=== PATIENT | female | born 1975 | race Caucasian/White ===

== ENCOUNTER 2019-08-10 16:03 | Observation (INO) | payer BC, SELFPAY ==
[2019-08-10] VITALS (9 sets, daily range): BP systolic 114–127; BP diastolic 73–92; PULSE 80–84; RESP 18–19; TEMP 36.4–36.8; O2SAT 99–100; BMI 30.9
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
[2019-08-10] MEDS: fentaNYL 50 mcg/mL INJ 2mL IVP ×2 (16:35→16:55)
[2019-08-10 17:33] LABS: Basophils % 0.2 %; Eosinophils # 0.1 10^3/uL (0.0-0.8); Eosinophils % 0.6 %; Hematocrit 37.4 % (37.0-47.0); Hemoglobin 12.2 g/dL (11.5-15.3); Lymphocytes # 2.1 10^3/uL (0.8-4.8); Lymphocytes % 14.6 %; Mean Corpuscular HGB Conc 32.6 g/dL (30.0-36.0); Mean Corpuscular Volume 95.2 fL (81-99); Mean Platelet Volume 10.8 fL (7.4-10.4); Monocytes # 0.8 10^3/uL (0.2-0.9); Monocytes % 5.5 %; Neutrophils # 11.2 10^3/uL (1.8-7.7); Neutrophils % 78.9 %; Nucleated Red Blood Cells % 0 %; Platelet Count 317 10^3/cmm (130-400); Red Blood Count 3.93 10^6/uL (4.1-5.3); White Blood Count 14.2 10^3/uL (4.0-10.0)
[2019-08-10] MEDS: iohexol 300 mg/mL 100 mL Btl 95 ML IV (17:46)
[2019-08-10 17:48] LABS: INR 0.99 (0.8-1.2)
[2019-08-10 18:04] LABS: Anion Gap 17.7 (5-19); Blood Urea Nitrogen 14 mg/dL (6-20); Calcium 9.6 mg/dL (8.5-10.5); Carbon Dioxide 21 mmol/L (22-29); Chloride 106 mmol/L (98-107); Glomerular Filtration Rate 78.7 mL/min (90-130); Glucose 111 mg/dL (65-115); Osmolality Calculated 289 mOsm/kg (285-295); Potassium 3.7 mmol/L (3.5-5.1); Sodium 141 mmol/L (136-145)
[2019-08-10] MEDS: HYDROmorphone 1 mg/mL INJ 1 mL 0.5 MG IVP ×2 (18:04→22:26)
[2019-08-10] MEDS: ondansetron 2 mg/ML SDV 2 mL 4 MG IVP (18:11)
[2019-08-10] MEDS: diazePAM 5 mg Tablet PO (18:39)
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
[2019-08-10] MEDS: sodium chloride 0.9% 1,000 ML 75 ML IV (20:56)
[2019-08-10] MEDS: ketorolac 30 mg/mL INJ 15 MG IVP (20:58)
[2019-08-10] MEDS: cyclobenzaprine 10 mg Tablet PO (22:23)
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
[2019-08-11] VITALS (13 sets, daily range): BP systolic 83–110; BP diastolic 50–68; PULSE 62–84; RESP 16–20; TEMP 36.7–37.3; O2SAT 98–100
[2019-08-11] MEDS: HYDROmorphone 1 mg/mL INJ 1 mL 0.5 MG IVP ×2 (02:23→14:28)
[2019-08-11] MEDS: oxyCODONE-APAP 10-325 mg Tablet 1 TAB PO ×3 (05:52→23:51)
--- NOTE | 2019-08-11 06:02 | PC.NURSE ---
SUMMARY/URINATION Has not slept much but has rested quietly. Medicated as needed with prn pain meds. Had not urinated since admission and had told us she had not gone since yesterday morning sometime. Had been putting off trying to go due to having to move around and pain. Wasn't sure she could sit on BSC due to swelling and pain in right hip/thigh and buttock. Wanted to try to stand and try to urinate in bucket but was unable to go and became dizzy and had to lay back down. Bladder scan done and showed 536ml urine. Really not wanting a catheter if at all possible. Tried bedpan without result then decided to try to get to BSC and was able to sit on it with void of 700ml dark urine. Right thigh, buttock and hip remain quite swollen but is soft. Scattered bruising and area remains very tender to touch or movement. No neurovascular changes. Ice pack in place
[2019-08-11 08:38] LABS: Anion Gap 17.8 (5-19); Blood Urea Nitrogen 15 mg/dL (6-20); Carbon Dioxide 21 mmol/L (22-29); Chloride 104 mmol/L (98-107); Creatine Phosphokinase 59 U/L (26-192); Glomerular Filtration Rate 78.7 mL/min (90-130); Glucose 103 mg/dL (65-115); Osmolality Calculated 285 mOsm/kg (285-295); Potassium 3.8 mmol/L (3.5-5.1); Sodium 139 mmol/L (136-145)
[2019-08-11 08:40] LABS: Basophils % 0.5 %; Eosinophils # 0.1 10^3/uL (0.0-0.8); Eosinophils % 1.4 %; Hematocrit 30.5 % (37.0-47.0); Hemoglobin 9.7 g/dL (11.5-15.3); Lymphocytes % 32.4 %; Mean Corpuscular HGB Conc 31.8 g/dL (30.0-36.0); Mean Corpuscular Hemoglobin 31.2 pg (28.0-34.0); Mean Corpuscular Volume 98.1 fL (81-99); Mean Platelet Volume 10.3 fL (7.4-10.4); Monocytes # 0.6 10^3/uL (0.2-0.9); Monocytes % 8.9 %; Neutrophils # 3.5 10^3/uL (1.8-7.7); Neutrophils % 56.6 %; Nucleated Red Blood Cells % 0 %; Platelet Count 256 10^3/cmm (130-400); Red Blood Count 3.11 10^6/uL (4.1-5.3); Red Cell Distribution Width 12.2 % (12.1-15.1); White Blood Count 6.3 10^3/uL (4.0-10.0)
[2019-08-11] MEDS: cyclobenzaprine 10 mg Tablet PO ×2 (08:48→18:13)
[2019-08-11 09:00] LABS: CKMB 1.4 ng/mL (0-5.34)
[2019-08-11] MEDS: sodium chloride 0.9% 1,000 ML 75 ML IV (09:45)
--- NOTE | 2019-08-11 12:18 | PC.CHAP ---
Pastoral Care Encounter/Spiritual Assessment Type of Contact [] Declined optical engineering manager visit [] Patient/Family/Request visit [] Outpatient visit [] Follow-up visit [] Physician referral [] Code/Alert [x] Routine visit [] Staff referral [] Actively dying [] Patient sleeping [] Family support [] [] Out of room [] Palliative care [] [] Receiving care in room [] Pre-surgical visit [] Trauma [] Long length of stay [] ICU visit [] Other: Relational/Emotional Strength [x] Patient feels connected with others/family/visitors/staff [] Distress [] Loneliness/isolation [] Abandonment Spirituality of Patient [x] Person of Kanwal [x] Attends Druze of their Kanwal [x] Believes in Prayer [x] Reads Bible or Advent materials [] There are Spiritual issues to be addressed Animal Warden Interventions [x] Prayer [x] Active listening [x] Non-anxious presence [x] Spiritual/emotional support [] Crisis/trauma care [x] Spiritual counseling [] Bereavement support [] Provided bereavement packet [] Provided Bible/devotional materials [] Provided toy/stuffed animal, coloring book to patient or family member [] Provided Communion [] Anointing/[place] [] Salvation [] Completed spiritual assessment [] Other: Impact on Illness or Injury [] Angry [] Fearful [] Anxious [] Often cries [] Exhaustion [] Unable to work [] Unable to attend buddhist [] Unable to walk/stand [] Unable to read [] Unable to drive [] Unable to eat/drink [] Unable to sleep [] Unable to be with family [] Patient intubated [x] Other: Summary Patient was attend by her father, Sudeep in the room with her. Time spent with patient 5 minutes
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
[2019-08-11] MEDS: sodium chloride 0.9% 1,000 ML 150 ML IV (19:29)
[2019-08-12] VITALS (8 sets, daily range): BP systolic 91–126; BP diastolic 57–80; PULSE 73–91; RESP 14–18; TEMP 36.5–36.9; O2SAT 98–100
[2019-08-12] MEDS: sodium chloride 0.9% 1,000 ML 150 ML IV (02:10)
[2019-08-12 06:00] LABS: Basophils % 0.4 %; Eosinophils # 0.1 10^3/uL (0.0-0.8); Eosinophils % 2.1 %; Hematocrit 25.6 % (37.0-47.0); Hemoglobin 8.1 g/dL (11.5-15.3); Lymphocytes # 2.8 10^3/uL (0.8-4.8); Lymphocytes % 52.7 %; Mean Corpuscular HGB Conc 31.6 g/dL (30.0-36.0); Mean Corpuscular Hemoglobin 31.2 pg (28.0-34.0); Mean Corpuscular Volume 98.5 fL (81-99); Mean Platelet Volume 10.6 fL (7.4-10.4); Monocytes # 0.5 10^3/uL (0.2-0.9); Monocytes % 8.9 %; Neutrophils # 1.9 10^3/uL (1.8-7.7); Neutrophils % 35.9 %; Nucleated Red Blood Cells % 0 %; Platelet Count 197 10^3/cmm (130-400); White Blood Count 5.3 10^3/uL (4.0-10.0)
[2019-08-12 06:28] LABS: Anion Gap 11.7 (5-19); Blood Urea Nitrogen 10 mg/dL (6-20); Calcium 8.3 mg/dL (8.5-10.5); Carbon Dioxide 23 mmol/L (22-29); Chloride 108 mmol/L (98-107); Glomerular Filtration Rate 78.7 mL/min (90-130); Glucose 104 mg/dL (65-115); Osmolality Calculated 284 mOsm/kg (285-295); Potassium 3.7 mmol/L (3.5-5.1); Sodium 139 mmol/L (136-145)
[2019-08-12] MEDS: ondansetron 2 mg/ML SDV 2 mL 4 MG IVP ×2 (09:56→17:03)
[2019-08-12] MEDS: oxyCODONE-APAP 10-325 mg Tablet 1 TAB PO ×2 (09:56→17:04)
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
[2019-08-12] MEDS: ketorolac 30 mg/mL INJ 15 MG IVP (17:04)
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
[2019-08-12] MEDS: sennosides-docusate Tablet 1 TAB PO (18:43)
[2019-08-13] VITALS: BP 109/74; PULSE 83; RESP 18; TEMP 37.1; O2SAT 97
[2019-08-13 04:00] VITALS: BP 112/78; PULSE 84; RESP 18; TEMP 36.9; O2SAT 98
[2019-08-13] MEDS: acetaminophen 325 mg Tablet 650 MG PO (05:44)
[2019-08-13 06:10] LABS: Hematocrit 24.9 % (37.0-47.0)
[2019-08-13 07:50] VITALS: BP 104/59; PULSE 74; RESP 20; TEMP 36.6; O2SAT 98
[2019-08-13] MEDS: sennosides-docusate Tablet 1 TAB PO (08:57)
[2019-08-13 11:09] VITALS: RESP 14
[2019-08-13] MEDS: ondansetron 2 mg/ML SDV 2 mL 4 MG IVP (11:09)
[2019-08-13] MEDS: oxyCODONE-APAP 10-325 mg Tablet 1 TAB PO (11:09)
[2019-08-13 11:31] VITALS: BP 124/83; PULSE 95; RESP 22; TEMP 36.6; O2SAT 100
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
[2019-08-13 12:23] VITALS: BP 124/83; PULSE 95; RESP 22; TEMP 36.6; O2SAT 100
== END 2019-08-13 13:02 | disposition home or self-care (01) ==
LOC: ER 18:53 → MEDSURG 19:49
PROVIDERS: Admitting Provider Surgery; Emergency Provider Emergency Medicine; Family Provider Family Medicine; PCP Family Medicine; Visit Provider Surgery
DX: S70.01XA Contusion of right hip, initial encounter (principal); M79.602 Pain in left arm; M79.601 Pain in right arm; M79.605 Pain in left leg; M79.604 Pain in right leg; M25.552 Pain in left hip; M25.551 Pain in right hip; M79.10 Myalgia, unspecified site; W23.0XXA Caught, crushed, jammed, or pinched between moving objects, initial encounter
CPT/HCPCS: 12345; 36415; 71045; 73060; 73090; 73110; 73552; 73590; 73610; 73630; 73718; 74177; 80048; 82550; 82553; 85014; 85018; 85025; 85610; 96360; 96361; 96374; 96375; 97140; 97161; 97530; 99282; 99285; G0378; J1170; J1885; J2405; J3010; J7030; Q9967

== ENCOUNTER → 2019-10-03 11:35 | Outpatient (BNVA) | payer BC, SELFPAY | PROVIDERS: Family Provider Family Medicine; PCP Family Medicine; Referring Provider Nurse Practitioner Family; Visit Provider Nurse Practitioner Family | DX: R50.9 Fever, unspecified (principal) | CPT/HCPCS: 87400 ==

== ENCOUNTER 2021-01-31 09:05 | Outpatient (CLI) | payer BC, SELFPAY ==
--- NOTE | 2021-01-31 09:12 | MM_ITS ---
WS: [id number] Exam: [place] [id number] Date/Time of Exam: 01/31/2021 9:12 AM Reason For Exam: SCREENING VIEWS: MLO and CC views both breasts. Comparison made with prior exam of 09/22/2018. Findings: Stable appearing scattered fibroglandular densities in both breasts. No suspicious calcifications. S cattered fibroglandular densities MM/[place] [id number] Impression: BI-RADS: 2-Benign FOLLOW-UP: 1 Year Follow-up This mammogram was also analyzed by the Computer Aided Detection System R2 Imag e Singeing Torch Operator.
== END 2021-01-31 09:06 | disposition home or self-care (01) ==
LOC: RADSHAW 09:11
PROVIDERS: PCP Family Medicine; Visit Provider Family Medicine
DX: Z12.31 Encounter for screening mammogram for malignant neoplasm of breast (principal)
CPT/HCPCS: 77067

== ENCOUNTER 2021-08-20 10:36 | Outpatient (CLI) | payer SELFPAY ==
[2021-08-20 10:59] LABS: HF Add Manual Diff No
[2021-08-20 11:01] LABS: Basophils # 0.1 10^3/uL (0.0-0.1); Eosinophils # 0.2 10^3/uL (0.0-0.8); Eosinophils % 3.2 %; Hematocrit 37.5 % (37.0-47.0); Hemoglobin 12.4 g/dL (11.5-15.3); Lymphocytes # 1.9 10^3/uL (0.8-4.8); Lymphocytes % 32.6 %; Mean Corpuscular HGB Conc 33.1 g/dL (30.0-36.0); Mean Corpuscular Hemoglobin 32.3 pg (28.0-34.0); Mean Corpuscular Volume 97.7 fl (81-99); Mean Platelet Volume 10.2 fL (7.4-10.4); Monocytes # 0.6 10^3/uL (0.2-0.9); Monocytes % 9.4 %; Neutrophils % 53.6 %; Nucleated Red Blood Cells % 0 %; Platelet Count 320 10^3/cmm (130-400); Red Blood Count 3.84 10^6/uL (4.1-5.3); Red Cell Distribution Width 12.9 % (12.1-15.1)
[2021-08-20 11:33] LABS: Estmated Average Glucose 103; Hemoglobin A1C 5.2 % (4.0-6.0)
[2021-08-20 11:47] LABS: 25 Hydroxy Vitamin D 33 ng/mL (30-100); Alanine Aminotransferase 12 U/L (0-33); Albumin Level 4.2 g/dL (3.5-5.2); Alkaline Phosphatase 53 IU/L (35-105); Anion Gap 15.4 (5-19); Aspartate Amino Transferase 16 U/L (0-32); Blood Urea Nitrogen 20 mg/dL (6-20); Calcium 9.7 mg/dL (8.5-10.5); Carbon Dioxide 22 mmol/L (22-29); Chloride 105 mmol/L (98-107); Chol HDL Ratio 2.44 mg/dL (0.0-4.40); Cholesterol 254 mg/dL (0-200); Globulin 3.4 g/dL (1.3-4.6); Glomerular Filtration Rate 90.9 mL/min (90-130); Glucose 98 mg/dL (65-115); HDL Cholesterol 104 mg/dL (60-100); LDL Cholesterol Calculated 139 mg/dL (50-129); LDL HDL Ratio 1.34 RATIO (0.00-3.22); Osmolality Calculated 289 mOsm/kg (285-295); Potassium 4.4 mmol/L (3.5-5.1); Sodium 138 mmol/L (136-145); Thyroid Stimulating Hormone 1.35 uIU/mL (0.27-4.20); Total Bilirubin 0.3 mg/dL (0.15-1.2); Total Protein 7.6 g/dL (6.6-8.7); Triglycerides 56 mg/dL (0-150)
== END 2021-08-20 10:37 | disposition home or self-care (01) ==
LOC: LAB 10:37
PROVIDERS: PCP Family Medicine; Visit Provider Dermatology
DX: Z01.89 Encounter for other specified special examinations (principal)
CPT/HCPCS: 36415

== ENCOUNTER 2022-02-11 09:38 | Outpatient (CLI) | payer BC, SELFPAY ==
--- NOTE | 2022-02-11 09:46 | MM_ITS ---
WS: [id number] SCREENING DIGITAL BREAST TOMOSYNTHESIS MAMMOGRAM WITH CAD HISTORY: SCREENING COMPARISON: 01/31/2021 09/22/2018 Bilateral CC and MLO with tomosynthesis and synthetic mammography submitted. Computer aided detection analyzed. Breast composition: There are scattered areas of fibroglandular density. Spiculated asymmetry noted o n the RIGHT MLO projection above the nipple line. This asymmetry was noted on prior studies but appea rs slightly more prominent and spiculated today. Asymmetry measures approximately 5 mm. May correspon d to a linear area of increased density in the lateral breast on the CC projection. MM/[place] [id number] IMPRESSION: BI-RADS: 0-Incomplete: Need additional imaging evaluation FOLLOW UP: Need Additional Imaging RIGHT breast: Spot compression views (CC and MLO). True ML. Ultrasound to follo w if abnormality persists.
== END 2022-02-11 09:39 | disposition home or self-care (01) ==
LOC: RAD 09:39
PROVIDERS: PCP Family Medicine; Visit Provider Family Medicine
DX: Z12.31 Encounter for screening mammogram for malignant neoplasm of breast (principal)
CPT/HCPCS: 77063; 77067

== ENCOUNTER 2022-05-19 08:33 | Outpatient (CLI) | payer BC, SELFPAY ==
--- NOTE | 2022-05-19 08:37 | MM_ITS ---
WS: [id number] ADDITIONAL VIEWS RIGHT MAMMOGRAM WITH DIGITAL BREAST TOMOSYNTHESIS. RIGHT BREAST ULTRASOUND HISTORY: ABNORMAL MAMMO COMPARISON: 02/11/2022, 01/31/2021, 09/22/2018 RIGHT MAMMOGRAM: Spot compression views and true ML with digital breast tomosynthesis and SM. The asymmetry in the upper outer quadrant of the RIGHT breast resolves with spot compression views. There is very minimal soft tissue prominence remaining. RIGHT BREAST ULTRASOUND 2-D and color Doppler imaging submitted. No mass or distortion in the upper outer quadrant of the RIGHT breast. MM/[place] [id number] IMPRESSION: BI-RADS: 2-Benign FOLLOW UP: 1 Year Follow-up
== END 2022-05-19 08:34 | disposition home or self-care (01) ==
LOC: RAD 08:33
PROVIDERS: PCP Family Medicine; Visit Provider Family Medicine
DX: R92.8 Other abnormal and inconclusive findings on diagnostic imaging of breast (principal)
CPT/HCPCS: 76642; 77061; G0279

== ENCOUNTER → 2022-12-22 11:23 | Outpatient (BNVA) | payer BC, SELFPAY | PROVIDERS: PCP Family Medicine; Visit Provider Emergency Medicine | DX: M79.671 Pain in right foot (principal) | CPT/HCPCS: 73630 ==

== ENCOUNTER 2023-07-08 08:30 | Outpatient (CLI) | payer BC, SELFPAY ==
--- NOTE | 2023-07-08 08:32 | MM_ITS ---
WS: [id number] BILATERAL SCREENING DIGITAL TOMOSYNTHESIS MAMMOGRAM WITH CAD HISTORY: SCREENING COMPARISON: 05/19/2022, 02/11/2022, 01/31/2021 Bilateral CC and MLO views with tomosynthesis and synthetic mammography submitted. Computer aided det ection analyzed. Breast composition: There are scattered areas of fibroglandular density. No suspicious masses, microc alcifications or architectural distortion. The irregular asymmetry in the superior RIGHT breast seen best on the MLO projection persists. This has been present and evaluated on prior imaging studies. No corresponding finding on the CC projection. LEFT breast is negative. IMPRESSION: MM/[place] [id number] BI-RADS: 2-Benign FOLLOW UP: 1 Year Follow-up
== END 2023-07-08 08:31 | disposition home or self-care (01) ==
LOC: RAD 08:30
PROVIDERS: PCP Family Medicine; Visit Provider Family Medicine
DX: Z12.31 Encounter for screening mammogram for malignant neoplasm of breast (principal); R92.323 Mammographic fibroglandular density, bilateral breasts; N64.89 Other specified disorders of breast
CPT/HCPCS: 77063; 77067

== ENCOUNTER 2023-10-16 22:37 | Emergency (ER) | payer BC, SELFPAY ==
[2023-10-16 22:44] VITALS: BP 135/95; PULSE 98; RESP 25; TEMP 36; O2SAT 100; BMI 32.4
--- NOTE | 2023-10-16 22:44 | CTR_ITS ---
PROCEDURE INFORMATION: Exam: CT Head Without Contrast Exam date and time: 10/16/2023 10:38 PM Age: 48 years old Clinical indication: Stroke-like symptoms; Altered mental status/memory loss; Additional info: Stroke alert TECHNIQUE: Imaging protocol: Computed tomography of the head without contrast. Radiation optimization: All CT scans at this facility use at least one of these dose optimization techniques: automated exposure control; mA and/or kV adjustment per patient size (includes targeted exams where dose is matched to clinical indication); or iterative reconstruction. Other technique: STROKE PROTOCOL was implemented. COMPARISON: No relevant prior studies available. RADIATION DOSE METRICS: Total DLP (mGy-cm): 1165.7 FINDINGS: Brain: No acute infarct. No hemorrhage. Unremarkable white matter for age. No midline shift. Cerebral ventricles: No ventriculomegaly. Paranasal sinuses: No significant inflammation. No fluid levels. Mastoid air cells: No significant inflammation. Bones: Unremarkable. No acute fracture. Soft tissues: Unremarkable. CT/CT head wo con* [id number] IMPRESSION: No acute intracranial abnormality. ASSESSMENT: ASPECTS ([place] Stroke Program Early CT Score) is 10.
--- NOTE | 2023-10-16 22:45 | XRR_ITS ---
PROCEDURE INFORMATION: Exam: XR Chest Exam date and time: 10/16/2023 10:54 PM Age: 48 years old Clinical indication: Other: Stroke alert; Patient HX: EMS arrival for possible stroke. ; Additional info: AMS TECHNIQUE: Imaging protocol: Radiologic exam of the chest. Views: 1 view. COMPARISON: CR XR chest 1V portable [id number] 08/10/2019 4:38 PM FINDINGS: Lungs: The lungs are hypoinflated with mild vascular crowding. No focal infiltrate is seen. Pleural spaces: No pleural effusion. No pneumothorax. Heart/Mediastinum: Stable heart size. Bones/joints: Stable bones. Probable bone island right proximal humerus. XR/XR chest 1V portable [id number] IMPRESSION: No acute findings.
[2023-10-16 23:03] LABS: Erythrocyte Sedimentation Rate 3 mm/hr (0-15)
[2023-10-16 23:04] LABS: Basophils # 0.1 10^3/uL (0.0-0.1); Basophils % 0.8 %; Eosinophils # 0.3 10^3/uL (0.0-0.8); Eosinophils % 2.7 %; Hematocrit 40.7 % (36-47); Lymphocytes # 3.4 10^3/uL (0.8-4.8); Lymphocytes % 36.5 %; Mean Corpuscular HGB Conc 32.9 g/dL (30-55); Mean Corpuscular Hemoglobin 31.6 pg (27-33); Mean Platelet Volume 9.9 fL (7.4-10.4); Monocytes # 0.8 10^3/uL (0.2-0.9); Monocytes % 8.7 %; Neutrophils # 4.69 10^3/uL (1.8-7.7); Neutrophils % 51.1 %; Nucleated Red Blood Cells % 0 %; Platelet Count 306 10^3/cmm (157-399); Red Blood Count 4.24 10^6/uL (3.85-5.65); White Blood Count 9.18 10^3/uL (3.29-11.43)
[2023-10-16 23:17] LABS: INR 0.96 (0.8-1.2)
--- NOTE | 2023-10-16 23:25 | ED_ITS ---
HPI - Altered Mental Status 2 General: Chief Complaint: Altered Mental Status Stated Complaint: AMS Time Seen by Provider: 10/16/23 22:45 History of Present Illness: Patient presents to the ER by EMS with a stroke alert being called. Patient's last known well was approximately 630 after that said she appeared under the influence even though she had been not been drinking she is was not quite right and mildly slurring her words. They went out to eat at 901 and she drank 2 margaritas by time they made it from [place] to [place] she was unable to get out of the car and unresponsive. He said that patient has drink 2 margaritas many times in the past and they do not have this effect on her at all. Patient does not use drugs. Has no history of seizures or strokes bleeds or blood clots. Upon arrival patient was taken straight to CT scan. Review of Systems 2 General: Reports: ROS unobtainable due to medical condition PFSH ED 2 PFSH: Medical History Family history of colon cancer Traumatic hematoma of right thigh Surgical History History of cholecystectomy History of appendectomy Family History Denies family history of Anesthesia complication Bleeding disorder Social History Smoking and tobacco/nicotine status: never used tobacco/nicotine Physical Exam 2 HENMT: OTHER: Upon arrival to the ER patient was noted to move all 4 extremities and her head. Patient would look around the good range of motion of her eyes. Patient would withdraw from painful stimuli. Patient would not follow commands or answer questions. Eye: COMMON NORMALS: Equal, round and reactive pupils present, EOMs intact bilaterally, conjunctivae normal and no scleral icterus CONJUNCTIVA: Yes conjunctivae normal PUPIL: Yes Equal, round and reactive pupils present Neck/C-Spine: COMMON NORMALS: full ROM, no lymphadenopathy, supple, no meningeal signs and no JVD Chest: COMMONS NORMALS: normal inspection of the chest and normal palpation of entire chest wall Resp: COMMON NORMALS: normal respiratory effort, No retractions, No use of accessory muscles and clear to auscultation bilaterally AUSCULTATION: clear to auscultation bilaterally Cardio: COMMON NORMALS: no JVD, regular rate, regular rhythm, S1 normal heart sound present, S2 normal heart sound present, No gallops present (Cardio), No clicks present (Cardio), No murmurs present (Cardio) and No rub (Cardio) R ATE: regular rate RHYTHM: regular rhythm HEART SOUNDS: S1 normal heart sound present and S2 normal heart sound present GI: COMMON NORMALS: Normal to inspection, nondistended, normoactive bowel sounds present, Soft to palpation, non-tender, No hepatosplenomegaly present and no masses PALPATION: Yes Soft to palpation and Yes No hepatosplenomegaly present Neuro: MENINGEAL SIGNS: Yes no meningeal signs Course 2 Vital Signs: Vital signs: Vital Signs Temperature 96.8 F L 10/16/23 22:44 Pulse Rate 92 10/17/23 01:01 Respiratory Rate 16 10/17/23 01:01 Blood Pressure 126/65 10/17/23 01:01 Pulse Oximetry 97 10/17/23 01:01 Oxygen Delivery Me thod Room Air 10/17/23 01:01 MDM - Altered Mental Status Medical Decision Making Discussed case with [facility] teleneuro he had due to the timeline last known well of 630 and her arriving here at approximately 1030 her out of the window for TNKase it does sound that she has a possible global aphasia he recommended getting a CTA head and neck and calling him back so he can do a evaluation. Teleneurology evaluated the patient that she may be more in status epilepticus and a seizure. She has started becoming more unresponsive and started twitching in the face and this is a decline since when she came in. They recommended we give her 2 mg Ativan and 2000 mg of Keppra and they will call the transfer center and we will work on a transfer to [place] they said patient really needs a EEG. Dr. Youngblood and Dr. Connelly accept the patient in transfer Differential Diagnosis Likely altered mental status Medical Records I reviewed the patient's medical records. Lab Data I reviewed the patient's lab results. 10/16/23 22:54 10/16/23 22:[address] 10/16/23 22:44 IMPRESSION: No acute intracranial abnormality. ASSESSMENT: ASPECTS ([place] Stroke Program Early CT Score) is 10. Chest X-Ray 10/16/23 22:45 IMPRESSION: No acute findings. Head/Neck CTA 10/16/23 23:27 IMPRESSION: No acute large vessel occlusion identified. IMPRESSION: No occlusion or significant stenosis. REFERENCES: NASCET CRITERIA. The degree of stenosis in the cervical segment of the internal carotid artery is based on NASCET criteria. Normal is no stenosis. Mild is less than 50% stenosis. Moderate is 50-69% stenosis. Severe is 70% to 99% stenosis. Total occlusion is no detectable patent lumen. Laboratory Results WBC 9.18 10^3/uL (3.29-11.43) 10/16/23 22:54 RBC 4.24 10^6/uL (3.85-5.65) 10/16/23 22:54 Hgb 13.40 g/dL (11.27-16.99) 10/16/23 22:54 Hct 40.7 % (36-47) 10/16/23 22:54 MCV 96.0 fl (85-98) 10/16/23 22:54 MCH 31.6 pg (27-33) 10/16/23 22:54 MCHC 32.9 g/dL (30-55) 10/16/23 22:54 RDW 12.0 % (12.1-15.1) L 10/16/23 22:54 Plt Count 306 10^3/cmm (157-399) 10/16/23 22:54 MPV 9.9 fL (7.4-10.4) 10/16/23 22:54 Neut % (Auto) 51.1 % 10/16/23 22:54 Lymph % (Auto) 36.5 % 10/16/23 22:54 [place] % (Auto) 8.7 % 10/16/23 22:54 Eos % (Auto) 2.7 % 10/16/23 22:54 Baso % (Auto) 0.8 % 10/16/23 22:54 Neut # (Auto) 4.69 10^3/uL (1.8-7.7) 10/16/23 22:54 Lymph # (Auto) 3.4 10^3/uL (0.8-4.8) 10/16/23 22:54 [place] # (Auto) 0.8 10^3/uL (0.2-0.9) 10/16/23 22:54 Eos # (Auto) 0.3 10^3/uL (0.0-0.8) 10/16/23 22:54 Baso # (Auto) 0.1 10^3/uL (0.0-0.1) 10/16/23 22:54 Nucleated RBC % (auto) 0 % 10/16/23 22:54 Nucleated RBCs # 0.0 /100WBC 10/16/23 22:54 ESR 3 mm/hr (0-15) 10/16/23 22:54 PT 13.10 SECONDS (12.1-14.9) 10/16/23 22:54 INR 0.96 (0.8-1.2) 10/16/23 22:54 Specimen Type Arterial 10/16/23 23:25 Sample Site Radial, right 10/16/23 23:25 ABG pH 7.35 (7.35-7.45) 10/16/23 23: ABG pCO2 39.9 mmHg (35-45) 10/16/23 23: ABG pO2 97.4 mmHg (80.0-100.0) 10/16/23 23: ABG PO2/FiO2 Ratio 0 10/16/23 23: ABG HCO3 21.9 mmol/L (22-26) L 10/16/23 23: ABG O2 Saturation 97.9 10/16/23 23:25 ABG Base Excess -3.4 mmol/L (-2.0-2.0) L 10/16/23 23:25 Lalit Test Pos 10/16/23 23:25 A-a O2 Gradient 0.2 mmHg (5-10) L 10/16/23 23:25 Hematocrit 41.0 % (37-47) 10/16/23 23:25 Hgb O2 Saturation 96.1 % (95-100) 10/16/23 23: Carboxyhemoglobin 1.0 %THgb (0.4-20.1) 10/16/23 23:25 Methemoglobin 0.8 % (0.4-1.5) 10/16/23 23:25 Total Hemoglobin 13.4 g/dL (12-16) 10/16/23 23:25 Sodium 146.0 mmol/L (131-143) H 10/16/23 23:25 Potassium 3.7 mmol/L (3.5-5.0) 10/16/23 23:25 Glucose 123.0 mg/dL (70-115) H 10/16/23 23:25 Ionized Calcium 1.3 mmol/L (1.1-1.4) 10/16/23 23:25 O2 Delivery Device Room air 10/16/23 23:25 FiO2 21.0 % 10/16/23 23:25 Development Trainer ID Ed 10/16/23 23:25 Sodium 140 mmol/L (136-145) 10/16/23 22:54 Potassium 3.3 mmol/L (3.5-5.1) L 10/16/23 22:54 Chloride 104 mmol/L (98-107) 10/16/23 22:54 Carbon Dioxide 23 mmol/L (22-29) 10/16/23 22:54 Anion Gap 16.3 (5-19) 10/16/23 22:54 BUN 21 mg/dL (6-20) H 10/16/23 22:54 Creatinine 0.8 mg/dL (0.5-0.9) 10/16/23 22:54 GFR Calculation 77.2 mL/min (90-130) L 10/16/23 22:54 Glucose 113 mg/dL (65-115) 10/16/23 22:54 Calculated Osmolality 294 mOsm/kg (285-295) 10/16/23 22:54 Lactic Acid 1.9 mmol/L (0.5-2.2) 10/16/23 22:54 Calcium 10.2 mg/dL (8.5-10.5) 10/16/23 22:54 Magnesium 2.2 mg/dL (1.7-2.3) 10/16/23 22:54 Total Bilirubin 0.2 mg/dL (0.15-1.2) 10/16/23 22:54 AST 19 U/L (0-32) 10/16/23 22:54 ALT 16 U/L (0-33) 10/16/23 22:54 Alkaline Phosphatase 71 U/L (35-105) 10/16/23 22:54 Creatine Kinase 55 U/L (26-192) 10/16/23 22:54 Troponin T Baseline 11 ng/L (0-10) H 10/16/23 22:54 Troponin T 120 Minute 8.96 ng/L (0-10) 10/17/23 00:29 Delta Troponin T -2.04 ABS# (0-10) L 10/17/23 00:29 C-Reactive Protein 3.0 mg/L (0.0-4.9) 10/16/23 22:54 Total Protein 7.7 g/dL (6.6-8.7) 10/16/23 22:54 Albumin 4.7 g/dL (3.5-5.2) 10/16/23 22:54 Globulin 3.0 g/dL (1.3-4.6) 10/16/23 22:54 Procalcitonin 0.05 ng/mL (0-0.5) 10/16/23 22:54 TSH 3.90 uIU/mL (0.27-4.20) 10/16/23 22:54 Urine Color Yellow (Yellow) 10/16/23 23:03 Urine Appearance Hazy (CLEAR) A 10/16/23 23:03 Urine pH 7 (5-7) 10/16/23 23:03 Ur Specific [place] 1.000 (1.005-1.030) L 10/16/23 23:03 Urine Protein 1+ (Negative) H 10/16/23 23:03 Urine Glucose (UA) Norm (Normal) 10/16/23 23:03 Urine Ketones Negative (Negative) 10/16/23 23:03 Urine Blood Neg (Negative) 10/16/23 23:03 Urine Nitrate Negative (Negative) 10/16/23 23:03 Urine Bilirubin Neg (Negative) 10/16/23 23:03 Urine Urobilinogen Neg mg/dL (Negative) 10/16/23 23:03 Ur Leukocyte Esterase 2+ (Negative) H 10/16/23 23:03 Urine RBC 0-4 /hpf (0-2) H 10/16/23 23:03 Urine WBC 25-40 /hpf (0-5) H 10/16/23 23:03 Ur Squamous Epith Cells 0-4 /hpf (0-5) H 10/16/23 23:03 Amorphous Sediment 1+ /hpf 10/16/23 23:03 Urine Bacteria 2+ /hpf (NONE) H 10/16/23 23:03 Urine Mucus Trace /hpf 10/16/23 23:03 Salicylates < 0.3 mg/dL (3-10) L 10/16/23 22:54 Urine Opiates Screen Negative ng/mL (Negative) 10/16/23 23:03 Acetaminophen < 5.0 ug/mL (10-30) L 10/16/23 22:54 Ur Barbiturates Screen Negative ng/mL (Negative) 10/16/23 23:03 Ur Phencyclidine Scrn Negative ng/mL (Negative) 10/16/23 23:03 Ur Amphetamines Screen Negative ng/mL (Negative) 10/16/23 23:03 U Benzodiazepines Scrn Negative ng/mL (Negative) 10/16/23 23:03 Urine Cocaine Screen Negative ng/mL (Negative) 10/16/23 23:03 U Marijuana (THC) Screen Negative ng/mL (Negative) 10/16/23 23:03 Ethyl Alcohol 164 mg/dL (0-10) H 10/16/23 22:54 All radiology interpretation(s) finalized by discharge Critical Care Time 2 Critical Care Time: Critical Care Time: Yes Total Critical Care Time: 60 Attestation: The patient was emergently evaluated this patient's presentation and case had a high probability of a clinically significant, sudden, or life-threatening deterioration of the patient's initial critical presentation or condition which required my full and direct attention, intervention and personal management. Discharge Plan Discharge Patient Disposition: Xfer Short-Term Hosp Clinical Impression: Status epilepticus, Acute alteration in mental status, Urinary tract infection Condition: Stable Prescriptions: No Action pantoprazole [Protonix] 40 mg tablet,delayed release (DR/EC) 40 mg PO BID 42 Days Qty: 84 1RF hydrocortisone [Anusol-HC] 2.5 % cream with perineal applicator 1 applic MA QID 10 Days Qty: 30 0RF Rx Instructions: may repeat in 10 days ibuprofen 800 mg Tablet 800 mg PO Q6H PRN (Reason: Pain) Xanax 0.25 mg Tablet 0.25 mg PO TID PRN (Reason: Anxiety) Hair,Skin and Nails Tablet 1 tab PO DAILY cyclobenzaprine 5 mg Tablet 5 mg PO BID PRN (Reason: Spasms) 28 mg iron- 800 mcg Tablet 1 tab PO DAILY Referrals: Felisa Benites MD [Primary Care Provider] - Patient Instructions: Altered Mental Status (ED) Coding Level of Care Code ED Sales Representative [employer] for [facility]
[2023-10-16 23:26] LABS: Lactic Sepsis W/Reflex 1.9 mmol/L (0.5-2.2)
--- NOTE | 2023-10-16 23:27 | CTR_ITS ---
PROCEDURE INFORMATION: Exam: CTA Head With Contrast, Arteriography Exam date and time: 10/16/2023 11:37 PM Age: 48 years old Clinical indication: Stroke-like symptoms; Altered mental status/memory loss and speech disturbance; Additional info: Global aphasia, AMS TECHNIQUE: Imaging protocol: Computed tomographic angiography of the head with contrast. Exam focused on the arteries. 3D rendering (Not supervised by radiologist): MIP and/or 3D reconstructed images were created by the technologist. Radiation optimization: All CT scans at this facility use at least one of these dose optimization techniques: automated exposure control; mA and/or kV adjustment per patient size (includes targeted exams where dose is matched to clinical indication); or iterative reconstruction. Contrast material: OMNI 350; Contrast volume: 100 ml; Contrast route: INTRAVENOUS (IV); COMPARISON: CT head wo con* [id number] 10/16/2023 10:38 PM RADIATION DOSE METRICS: Total DLP (mGy-cm): 455.25 FINDINGS: ANTERIOR CIRCULATION: Right internal carotid artery: Intracranial segment is patent with no significant stenosis. No aneurysm. Right middle cerebral artery: No occlusion or significant stenosis. No aneurysm. Right anterior cerebral artery: No occlusion or significant stenosis. No aneurysm. Left internal carotid artery: Intracranial segment is patent with no significant stenosis. No aneurysm. Left middle cerebral artery: No occlusion or significant stenosis. No aneurysm. Left anterior cerebral artery: No occlusion or significant stenosis. No aneurysm. POSTERIOR CIRCULATION: Right vertebral artery: No occlusion or significant stenosis. No aneurysm. Left vertebral artery: No occlusion or significant stenosis. No aneurysm. Basilar artery: No occlusion or significant stenosis. No aneurysm. Right posterior cerebral artery: No occlusion or significant stenosis. No aneurysm. Left posterior cerebral artery: No occlusion or significant stenosis. No aneurysm. Brain: No definite mass, mass effect, or midline shift. Cerebral ventricles: No ventriculomegaly. Bones/joints: No acute fracture. Soft tissues: Unremarkable. PROCEDURE INFORMATION: Exam: CTA Neck With Contrast Exam date and time: 10/16/2023 11:37 PM Age: 48 years old Clinical indication: Stroke-like symptoms; Altered mental status/memory loss and speech disturbance; Additional info: Global aphasia, AMS TECHNIQUE: Imaging protocol: Computed tomographic angiography of the neck with contrast. Exam focused on the cervical segments of the vasculature. 3D rendering (Not supervised by radiologist): MIP and/or 3D reconstructed images were created by the technologist. Radiation optimization: All CT scans at this facility use at least one of these dose optimization techniques: automated exposure control; mA and/or kV adjustment per patient size (includes targeted exams where dose is matched to clinical indication); or iterative reconstruction. Contrast material: OMNI 350; Contrast volume: 100 ml; Contrast route: INTRAVENOUS (IV); COMPARISON: CT head wo con* [id number] 10/16/2023 10:38 PM RADIATION DOSE METRICS: Total DLP (mGy-cm): 455.25 FINDINGS: Right common carotid artery: No stenosis. No dissection or occlusion. Right internal carotid artery: No stenosis of the extracranial segment. No dissection or occlusion. Right external carotid artery: No visible occlusion. Left common carotid artery: No stenosis. No dissection or occlusion. Left internal carotid artery: No stenosis of the extracranial segment. No dissection or occlusion. Left external carotid artery: No visible occlusion. Right vertebral artery: No stenosis. No dissection or occlusion. Left vertebral artery: No stenosis. No dissection or occlusion. Soft tissues: No significant soft tissue swelling. Bones/joints: No acute fracture. CT/CT angio headneck* [id number] IMPRESSION: No acute large vessel occlusion identified. IMPRESSION: No occlusion or significant stenosis. REFERENCES: NASCET CRITERIA. The degree of stenosis in the cervical segment of the internal carotid artery is based on NASCET criteria. Normal is no stenosis. Mild is less than 50% stenosis. Moderate is 50-69% stenosis. Severe is 70% to 99% stenosis. Total occlusion is no detectable patent lumen.
[2023-10-16 23:29] LABS: Troponin(5th) Baseline 11 ng/L (0-10)
[2023-10-16 23:34] LABS: ABG PCO2 39.9 mmHg (35-45); ABG PH Result 7.35 (7.35-7.45); Alveolar-Arterial Oxygen Gradi 0.2 mmHg (5-10); Base Excess ABG -3.4 mmol/L (-2.0-2.0); Blood Gas Allen Test Pos; Blood Gas Operator Identificat ED; Blood Gas Sample Site Radial, right; Blood Gas Sample Type Arterial; HCO3 ABG 21.9 mmol/L (22-26); HGB O2 Sat 96.1 % (95-100); Ionized Calcium Level - ABG 1.3 mmol/L (1.1-1.4); Methemoglobin 0.8 % (0.4-1.5); Oxygen Device ROOM AIR; Oxygen Saturation ABG 97.9; PO2 ABG 97.4 mmHg (80.0-100.0); PO2 FiO2 Ratio Arterial Blood 0; Potassium Level - ABG 3.7 mmol/L (3.5-5.0); Total Hemoglobin 13.4 g/dL (12-16)
[2023-10-16 23:35] LABS: Add Urine Microscopic? YES; Bacteria Urine 2+ /hpf; Bilirubin Urine Neg (Negative); Blood Urine Neg (Negative); Glucose Urine UA Norm (Normal); Ketones Urine Negative (Negative); Leukocyte Esterase Urine 2+ (Negative); Mucus Urine TRACE /hpf; Nitrate Urine Negative (Negative); Protein Urine 1+ (Negative); RBC Urine 0-4 /hpf (0-2); Squamous Epithelial Cell Urine 0-4 /hpf (0-5); Urine Appearance Hazy (CLEAR); Urine Color Yellow (Yellow); Urobilinogen Urine Neg (Negative); WBC Urine 25-40 /hpf (0-5); pH Urine 7 (5-7)
[2023-10-16 23:36] LABS: Add Urine Culture? Yes; Amorphous Sediment Urine 1+ /hpf
[2023-10-16 23:37] LABS: Amphetamines Screen Urine Negative (Negative); Barbiturates Screen Urine Negative (Negative); Benzodiazepines Screen Urine Negative (Negative); Cocaine Screen Urine Negative (Negative); Opiate Screen Urine Negative (Negative); PCP Screen Urine Negative (Negative); THC Screen Urine Negative (Negative)
[2023-10-16 23:37] LABS: Procalcitonin 0.05 ng/mL (0-0.5)
[2023-10-16] MEDS: iohexol 350 mg/mL 500 mL Btl (per mL) IV (23:46)
[2023-10-16 23:48] LABS: Alanine Aminotransferase 16 U/L (0-33); Albumin Level 4.7 g/dL (3.5-5.2); Alcohol Level 164 mg/dL (0-10); Alkaline Phosphatase 71 U/L (35-105); Anion Gap 16.3 (5-19); Aspartate Amino Transferase 19 U/L (0-32); Blood Urea Nitrogen 21 mg/dL (6-20); Calcium 10.2 mg/dL (8.5-10.5); Carbon Dioxide 23 mmol/L (22-29); Chloride 104 mmol/L (98-107); Glomerular Filtration Rate 77.2 mL/min (90-130); Glucose 113 mg/dL (65-115); Magnesium 2.2 mg/dL (1.7-2.3); Osmolality Calculated 294 mOsm/kg (285-295); Potassium 3.3 mmol/L (3.5-5.1); Sodium 140 mmol/L (136-145); Total Bilirubin 0.2 mg/dL (0.15-1.2); Total Protein 7.7 g/dL (6.6-8.7)
[2023-10-16 23:49] LABS: Acetaminophen < 5.0 ug/mL (10-30); Salicylate < 0.3 mg/dL (3-10)
--- NOTE | 2023-10-16 23:49 | ECG_ITS ---
[facility] Test Date: 2023-10-16 Pat Name: Allison So Department: Room: Gender: Female Contact Center Associate: : 1975 Requested By: Dre Lamb Order Number: [id number] Abelardo MD: Georgia Singh M.D. Measurements Intervals [place] Rate: 81 P: 58 [place]: 157 QRS: 52 QRSD: 101 T: 48 QT: 386 QTc: 448 Interpretive Statements SINUS RHYTHM Compared to ECG 09/13/2017 13:52:01 No significant changes Electronically Signed On 10-17-2023 19:50:27 CDT by Georgia Singh M.D. [id number] f
[2023-10-16] MEDS: sodium chloride 0.9% 1,000 ML 999 ML IV (23:50)
[2023-10-16] MEDS: ondansetron 2 mg/ML SDV 2 mL 4 MG IVP (23:51)
[2023-10-17 00:11] LABS: Creatine Phosphokinase 55 U/L (26-192)
[2023-10-17 00:39] VITALS: BP 130/92; PULSE 109; RESP 20; O2SAT 96
[2023-10-17 00:51] LABS: Troponin 5 2HR 8.96 ng/L (0-10)
[2023-10-17 00:53] LABS: Troponin 5 2HR Delta -2.04 ABS# (0-10)
[2023-10-17] MEDS: LORazepam 2 mg/mL INJ 10 mL MDV IVP (01:00)
[2023-10-17] MEDS: levETIRAcetam 2,000 MG/200 ML PREMIX 400 MG IV (01:00)
[2023-10-17 01:01] VITALS: BP 126/65; PULSE 92; RESP 16; O2SAT 97
--- NOTE | 2023-10-17 01:51 | PC.NURSE ---
Report was called to Adriane Aguilera RN at the Neuro-ICU at [place]. All questions and concerns were addressed at time of report.
--- NOTE | 2023-10-17 01:56 | PC.NURSE ---
took home patient's shirt, pants, boots, as well as earrings, yellow colored wedding ring, and smart watch.
== END 2023-10-17 01:58 | disposition short-term general hospital (02) ==
PROVIDERS: Emergency Provider Emergency Medicine; PCP Family Medicine
DX: G40.901 Epilepsy, unspecified, not intractable, with status epilepticus (principal); R41.82 Altered mental status, unspecified; N39.0 Urinary tract infection, site not specified
CPT/HCPCS: 36415; 36600; 70450; 70496; 70498; 71045; 80051; 80053; 80306; 80307; 81001; 82330; 82550; 82805; 83605; 83735; 84145; 84146; 84443; 84484; 85025; 85610; 85651; 86140; 87086; 93005; 96361; 96365; 96375; 99285; J1953; J2060; J2405; J7030; Q9967

== ENCOUNTER 2024-08-05 19:26 | Emergency (ER) | payer BC, SELFPAY ==
[2024-08-05 19:30] VITALS: BP 131/84; PULSE 90; RESP 24; TEMP 36.6; O2SAT 99; BMI 35.2
--- NOTE | 2024-08-05 19:49 | XRR_ITS ---
PROCEDURE INFORMATION: Exam: XR Left Tibia and Fibula Exam date and time: 08/05/2024 7:59 PM Age: 49 years old Clinical indication: Injury or trauma; Fall; Blunt trauma; Left; Patient tripped and struck lower leg against a rock on the ground. Contusion to anterior aspect of mid tibia. TECHNIQUE: Imaging protocol: Radiologic exam of the left tibia and fibula. Views: 2 views. COMPARISON: No relevant prior studies available. FINDINGS: Bones/joints: No acute fracture or dislocation. Soft tissues: Mild soft tissue swelling along the anterior lower leg. XR/XR tibia fibula LT 2V [id number] IMPRESSION: No acute osseous findings.
[2024-08-05] MEDS: ketorolac 30 mg/mL INJ 15 MG IVP (20:23)
[2024-08-05] MEDS: ondansetron 2 mg/ML SDV 2 mL 4 MG IVP (20:23)
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
[2024-08-05] MEDS: HYDROmorphone 1 mg/mL INJ 1 mL IVP (21:01)
[2024-08-05 21:39] VITALS: BP 108/73; PULSE 72; RESP 16; O2SAT 95
== END 2024-08-05 21:39 | disposition home or self-care (01) ==
PROVIDERS: Emergency Provider Emergency Medicine; PCP Family Medicine
DX: S80.12XA Contusion of left lower leg, initial encounter (principal); S86.902A Unspecified injury of unspecified muscle(s) and tendon(s) at lower leg level, left leg, initial encounter; W01.0XXA Fall on same level from slipping, tripping and stumbling without subsequent striking against object, initial encounter
CPT/HCPCS: 73590; 96374; 96375; 99284; J1171; J1885; J2405

== ENCOUNTER 2025-01-17 15:46 | Observation (INO) | payer BC, SELFPAY ==
[2025-01-17] VITALS (10 sets, daily range): BP systolic 102–146; BP diastolic 66–89; PULSE 60–74; RESP 12–18; TEMP 36.5; O2SAT 100; BMI 35.2; BMI 35.4
--- NOTE | 2025-01-17 15:49 | ECG_ITS ---
[facility] Test Date: 2025-01-17 Pat Name: Allison So Department: Room: Gender: Female Hse Advisor: : 1975 Requested By: Ban Garcia Order Number: [id number] Zhou MD: Héctor Vinson M.D. Measurements Intervals [place] Rate: 67 P: 9 NC: 143 QRS: 36 QRSD: 98 T: 46 QT: 400 QTc: 424 Interpretive Statements SINUS RHYTHM Compared to ECG 10/16/2023 23:49:28 No significant changes Electronically Signed On 01-18-2025 21:29:35 CDT by Héctor Vinson M.D. [email or web address] [id number]
--- NOTE | 2025-01-17 15:49 | XRR_ITS ---
PROCEDURE INFORMATION: Exam: XR Chest Exam date and time: 01/17/2025 3:57 PM Age: 49 years old Clinical indication: Pain; Chest pressure; Additional info: Cp TECHNIQUE: Imaging protocol: Radiologic exam of the chest. Views: 1 view. COMPARISON: CR XR chest 1V portable [id number] 10/16/2023 10:54 PM FINDINGS: Lungs: Unremarkable. No consolidation. Pleural spaces: Unremarkable. No pleural effusion. No pneumothorax. Heart/Mediastinum: Unremarkable. No cardiomegaly. Bones/joints: Unremarkable. XR/XR chest 1V portable [id number] IMPRESSION: No acute findings.
--- NOTE | 2025-01-17 16:00 | W.ED.CHESTPA ---
Documented by User: COREY Garrido 01/18/25 12:50 HPI - Chest Pain General: Chief Complaint: Chest Pain Stated Complaint: chest pain Time Seen by Provider: 01/17/25 15:54 Source: patient Mode of arrival: ambulatory Limitations: no limitations History of Present Illness: Patient is a 49-year-old female with no known past medical history here for complaints of substernal chest pain starting today essentially at rest. She states pain is somewhat of a heaviness but does not describe it as an elephant sitting on my chest . She states pain potentially radiates into her right jaw although reportedly has a toothache here as well. She has some degree of dyspnea. She states she just has not felt well all day. She has had a few episodes of nausea and vomiting. No history of leg swelling, calf pain. No recent illness or URI symptoms. Upon arrival her vital signs are stable. No risk factors for PE. MD complaint: chest pain Onset (ago): day(s) Timing of current episode: constant Prior episodes: Yes (once) Onset: during rest Pain location: substernal Severity: moderate Quality: aching Relieving factors: nothing Exacerbating factors: nothing Associated symptoms: Reports dyspnea, nausea and vomiting; Deny abdominal pain, fever(s), palpitations or syncope Treatment prior to arrival: none Risk Factors: Coronary artery disease risk factors: none Thoracic aortic dissection risk factors: none Related Data Home Medications ?Medication ?Instructions ?Recorded ?Confirmed alprazolam 0.25 mg tablet (Xanax) 0.25 mg PO TID PRN Anxiety 08/10/19 01/17/25 multivitamin with minerals 1 tab PO DAILY 08/10/19 01/17/25 (Hair,Skin and Nails tablet) vit no.95-ferrous 1 tab PO DAILY 08/10/19 01/17/25 fumarate 28 mg-folic acid 800 mcg tablet () estradiol 0.075 mg/24 hr weekly 1 patch topical DIRECTED 01/17/25 01/17/25 transdermal patch Previous Rx's ?Medication ?Instructions ?Recorded ondansetron 4 mg disintegrating 4 mg PO Q6H PRN nausea and 08/05/24 tablet vomiting #14 tabs Allergies Allergy/AdvReac Type Severity Reaction Status Date / Time meperidine (From Demerol) Allergy Unknown Verified 01/17/25 15:58 morphine Allergy Unknown Verified 01/17/25 15:58 vancomycin Allergy Unknown Verified 01/17/25 15:58 Review of Systems Const: Denies: fever(s), chills, body aches, fatigue or malaise ENMT: Reports: dental pain Card: Reports: chest pain; Denies: palpitations, irregular heart rhythm, edema, swelling of feet/ankles, lightheadedness, syncope, pre-syncope, leg pain with exertion or acrocyanosis Resp: Reports: dyspnea; Denies: productive cough or non-productive cough GI: Reports: nausea and vomiting; Denies: abdominal pain or hematemesis : Denies: flank pain, difficulty voiding, dysuria, urinary frequency, urinary urgency or urinary hesitancy Musc: Denies: neck pain, back pain, extremity pain, extremity swelling, joint swelling or joint redness Skin/Breast: Denies: rash Neuro: Denies: headache(s), numbness in extremities, weakness in extremities, sensory changes or dizziness PFSH ED PFSH: Medical History Family history of colon cancer Traumatic hematoma of right thigh Surgical History History of cholecystectomy History of appendectomy Family History Denies family history of Anesthesia complication Bleeding disorder Social History Smoking and tobacco/nicotine status: never used tobacco/nicotine Alcohol intake: current Alcohol intake frequency: few times a month Substance/Drug Use: never Additional social history: 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 no prolonged life support especially in setting of stroke she does not want life support this was discussed in presence of her Hua on 01/17/2025 with Phil Cruz MD Physical Exam Const: COMMON NORMALS: average body habitus, patient oriented x3, no limitations, healthy appearing, alert and well nourished GENERAL APPEARANCE: cooperative and anxious ORIENTATION/CONSCIOUSNESS: Yes awake, Yes oriented to person, Yes oriented to place and Yes oriented to time Resp: COMMON NORMALS: normal respiratory effort and clear to auscultation bilaterally AUSCULTATION: clear to auscultation bilaterally Cardio: COMMON NORMALS: regular rate and regular rhythm RATE: regular rate RHYTHM: regular rhythm Extremity: COMMON NORMALS: no clubbing, cyanosis or edema, no calf tenderness and no pedal edema GENERAL: Yes normal exam except as noted Neuro: COMMON NORMALS: patient oriented x3 SENSORIUM/ORIENTATION: Yes alert, Yes oriented to person, Yes oriented to place and Yes oriented to time Course Vital Signs: Vital signs: Vital Signs Temperature 98.1 F 01/18/25 12:00 Pulse Rate 66 01/18/25 12:00 Respiratory Rate 20 H 01/18/25 12:00 Blood Pressure 133/82 01/18/25 12:00 Pulse Oximetry 99 01/18/25 12:00 Oxygen Delivery Me thod Room Air 01/18/25 12:00 MDM - Chest Pain Lab Data 01/17/25 19:48 01/17/25 16:46 Radiology Impressions Chest X-Ray 01/17/25 15:49 IMPRESSION: No acute findings. Laboratory Results WBC 7.08 10^3/uL (3.29-11.43) 01/17/25 16:46 RBC 3.92 10^6/uL (3.85-5.65) 01/17/25 16:46 Hgb 12.40 g/dL (11.27-16.99) 01/17/25 16:46 Hct 37.1 % (36-47) 01/17/25 16:46 MCV 94.6 fl (85-98) 01/17/25 16:46 MCH 31.6 pg (27-33) 01/17/25 16:46 MCHC 33.4 g/dL (30-55) 01/17/25 16:46 RDW 12.3 % (12.1-15.1) 01/17/25 16:46 Plt Count 293 10^3/cmm (157-399) 01/17/25 19:48 MPV 9.9 fL (7.4-10.4) 01/17/25 16:46 Neut % (Auto) 59.4 % 01/17/25 16:46 Lymph % (Auto) 31.6 % 01/17/25 16:46 Reagan % (Auto) 6.1 % 01/17/25 16:46 Eos % (Auto) 1.8 % 01/17/25 16:46 Baso % (Auto) 0.8 % 01/17/25 16:46 Neut # (Auto) 4.20 10^3/uL (1.8-7.7) 01/17/25 16:46 Lymph # (Auto) 2.2 10^3/uL (0.8-4.8) 01/17/25 16:46 Reagan # (Auto) 0.4 10^3/uL (0.2-0.9) 01/17/25 16:46 Eos # (Auto) 0.1 10^3/uL (0.0-0.8) 01/17/25 16:46 Baso # (Auto) 0.1 10^3/uL (0.0-0.1) 01/17/25 16:46 Nucleated RBC % (auto) 0 % 01/17/25 16:46 Nucleated RBCs # 0.0 /100WBC 01/17/25 16:46 PT 12.50 SECONDS (12.1-14.9) 01/17/25 16:46 INR 0.88 (0.8-1.2) 01/17/25 16:46 Sodium 139 mmol/L (136-145) 01/17/25 16:46 Potassium 4.4 mmol/L (3.5-5.1) 01/17/25 16:46 Chloride 106 mmol/L (98-107) 01/17/25 16:46 Carbon Dioxide 22 mmol/L (22-29) 01/17/25 16:46 Anion Gap 15.4 (5-19) 01/17/25 16:46 BUN 19 mg/dL (6-20) 01/17/25 16:46 Creatinine 0.8 mg/dL (0.5-0.9) 01/17/25 16:46 GFR Calculation 76.9 mL/min (90-130) L 01/17/25 16:46 Glucose 131 mg/dL (65-115) H 01/17/25 16:46 Calculated Osmolality 292 mOsm/kg (285-295) 01/17/25 16:46 Calcium 9.2 mg/dL (8.5-10.5) 01/17/25 16:46 Total Bilirubin 0.5 mg/dL (0.15-1.2) 01/17/25 16:46 AST 13 U/L (0-32) 01/17/25 16:46 ALT 11 U/L (0-33) 01/17/25 16:46 Alkaline Phosphatase 56 U/L (35-105) 01/17/25 16:46 Troponin T Baseline < 6 ng/L (0-10) 01/17/25 16:46 Troponin T 120 Minute < 6.0 ng/L (0-10) 01/17/25 18:32 Delta Troponin T 0 ABS# (0-10) 01/17/25 18:32 Total Protein 7.0 g/dL (6.6-8.7) 01/17/25 16:46 Albumin 4.5 g/dL (3.5-5.2) 01/17/25 16:46 Globulin 2.5 g/dL (1.3-4.6) 01/17/25 16:46 Lipase 19 U/L (13-60) 01/17/25 16:46 Discharge Plan Discharge Patient Disposition: Placed in Observation Admit Provider: Phil Cruz Clinical Impression: Unstable angina pectoris Coding Level of Care Code ED Director Of Admissions for Chg Fwd Documented by User: COREY Cee 01/17/25 20:14 HPI - Chest Pain General: Chief Complaint: Chest Pain Stated Complaint: chest pain Time Seen by Provider: 01/17/25 15:54 Related Data Home Medications ?Medication ?Instructions ?Recorded ?Confirmed alprazolam 0.25 mg tablet (Xanax) 0.25 mg PO TID PRN Anxiety 08/10/19 01/17/25 multivitamin with minerals 1 tab PO DAILY 08/10/19 01/17/25 (Hair,Skin and Nails tablet) vit no.95-ferrous 1 tab PO DAILY 08/10/19 01/17/25 fumarate 28 mg-folic acid 800 mcg tablet () estradiol 0.075 mg/24 hr weekly 1 patch topical DIRECTED 08/12/25 08/12/25 transdermal patch Previous Rx's ?Medication ?Instructions ?Recorded ondansetron 4 mg disintegrating 4 mg PO Q6H PRN nausea and 08/05/24 tablet vomiting #14 tabs Allergies Allergy/AdvReac Type Severity Reaction Status Date / Time meperidine (From Demerol) Allergy Unknown Verified 01/17/25 15:58 morphine Allergy Unknown Verified 01/17/25 15:58 vancomycin Allergy Unknown Verified 01/17/25 15:58 PFSH ED PFSH: Medical History Family history of colon cancer Traumatic hematoma of right thigh Surgical History History of cholecystectomy History of appendectomy Family History Denies family history of Anesthesia complication Bleeding disorder Social History Smoking and tobacco/nicotine status: never used tobacco/nicotine Alcohol intake: current Alcohol intake frequency: few times a month Substance/Drug Use: never Additional social history: 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 No shortness of breath. No nausea after Zofran. Patient states huge difference after nitroglycerin Reevaluation #2: Patient's chest pain has returned. Troponin is negative. Will call cardiology. Consultations: Consultation #1: D/w Dr. Vinson, will consult for ACS Consultation #2: D/w Dr. Cruz, accepted obsv admission for ACS Vital Signs: Vital signs: Vital Signs Temperature 98.1 F 01/18/25 12:00 Pulse Rate 66 01/18/25 12:00 Respiratory Rate 20 H 01/18/25 12:00 Blood Pressure 133/82 01/18/25 12:00 Pulse Oximetry 99 01/18/25 12:00 Oxygen Delivery Me thod Room Air 01/18/25 12:00 MDM - Chest Pain Medical Decision Making Patient is 49-year-old female that has heart score of 0, remote paternal history at age 62 grandmother with sudden [place], otherwise hypertension on paternal side, and maternal sign negative, non-smoker, postmenopausal, presented with substernal chest pressure/heaviness. This was associated with shortness of breath, and mild nausea. All of the symptoms resolved after nitroglycerin x 1 and Zofran. Initial troponin and repeat troponin were negative. On second evaluation, patient noted her chest pressure/heaviness was back. Discussed with cardiology the recommended admission, heparinization. They will consult. Dr. Calixto from hospitalist group will admit. Cardiology has asked for n.p.o. after midnight, and nitroglycerin paste. Differential Diagnosis Likely acute myocardial infarction Medical Records I reviewed the patient's medical records. Lab Data I reviewed the patient's lab results. 01/17/25 19:48 01/17/25 16:46 Radiology Impressions Chest X-Ray 01/17/25 15:49 IMPRESSION: No acute findings. Laboratory Results WBC 7.08 10^3/uL (3.29-11.43) 01/17/25 16:46 RBC 3.92 10^6/uL (3.85-5.65) 01/17/25 16:46 Hgb 12.40 g/dL (11.27-16.99) 01/17/25 16:46 Hct 37.1 % (36-47) 01/17/25 16:46 MCV 94.6 fl (85-98) 01/17/25 16:46 MCH 31.6 pg (27-33) 01/17/25 16:46 MCHC 33.4 g/dL (30-55) 01/17/25 16:46 RDW 12.3 % (12.1-15.1) 01/17/25 16:46 Plt Count 293 10^3/cmm (157-399) 01/17/25 19:48 MPV 9.9 fL (7.4-10.4) 01/17/25 16:46 Neut % (Auto) 59.4 % 01/17/25 16:46 Lymph % (Auto) 31.6 % 01/17/25 16:46 Reagan % (Auto) 6.1 % 01/17/25 16:46 Eos % (Auto) 1.8 % 01/17/25 16:46 Baso % (Auto) 0.8 % 01/17/25 16:46 Neut # (Auto) 4.20 10^3/uL (1.8-7.7) 01/17/25 16:46 Lymph # (Auto) 2.2 10^3/uL (0.8-4.8) 01/17/25 16:46 Reagan # (Auto) 0.4 10^3/uL (0.2-0.9) 01/17/25 16:46 Eos # (Auto) 0.1 10^3/uL (0.0-0.8) 01/17/25 16:46 Baso # (Auto) 0.1 10^3/uL (0.0-0.1) 01/17/25 16:46 Nucleated RBC % (auto) 0 % 01/17/25 16:46 Nucleated RBCs # 0.0 /100WBC 01/17/25 16:46 PT 12.50 SECONDS (12.1-14.9) 01/17/25 16:46 INR 0.88 (0.8-1.2) 01/17/25 16:46 Sodium 139 mmol/L (136-145) 01/17/25 16:46 Potassium 4.4 mmol/L (3.5-5.1) 01/17/25 16:46 Chloride 106 mmol/L (98-107) 01/17/25 16:46 Carbon Dioxide 22 mmol/L (22-29) 01/17/25 16:46 Anion Gap 15.4 (5-19) 01/17/25 16:46 BUN 19 mg/dL (6-20) 01/17/25 16:46 Creatinine 0.8 mg/dL (0.5-0.9) 01/17/25 16:46 GFR Calculation 76.9 mL/min (90-130) L 01/17/25 16:46 Glucose 131 mg/dL (65-115) H 01/17/25 16:46 Calculated Osmolality 292 mOsm/kg (285-295) 01/17/25 16:46 Calcium 9.2 mg/dL (8.5-10.5) 01/17/25 16:46 Total Bilirubin 0.5 mg/dL (0.15-1.2) 01/17/25 16:46 AST 13 U/L (0-32) 01/17/25 16:46 ALT 11 U/L (0-33) 01/17/25 16:46 Alkaline Phosphatase 56 U/L (35-105) 01/17/25 16:46 Troponin T Baseline < 6 ng/L (0-10) 01/17/25 16:46 Troponin T 120 Minute < 6.0 ng/L (0-10) 01/17/25 18:32 Delta Troponin T 0 ABS# (0-10) 01/17/25 18:32 Total Protein 7.0 g/dL (6.6-8.7) 01/17/25 16:46 Albumin 4.5 g/dL (3.5-5.2) 01/17/25 16:46 Globulin 2.5 g/dL (1.3-4.6) 01/17/25 16:46 Lipase 19 U/L (13-60) 01/17/25 16:46 All radiology interpretation(s) finalized by discharge EKG Data EKG 1: Interpretation: Normal sinus rhythm, normal axis, QTc 436 ms, low voltage in lead III Discharge Plan Discharge Patient Disposition: Placed in Observation Admit Provider: Phil Cruz Clinical Impression: Unstable angina pectoris Coding Level of Care Code ED Director Of Admissions for Humberto Alicea
[2025-01-17] MEDS: ondansetron 2 mg/ML SDV 2 mL 4 MG IVP (17:04)
[2025-01-17 17:14] LABS: Hematocrit 37.1 % (36-47); Hemoglobin 12.40 g/dL (11.27-16.99); Mean Corpuscular HGB Conc 33.4 g/dL (30-55); Mean Corpuscular Hemoglobin 31.6 pg (27-33); Mean Corpuscular Volume 94.6 fl (85-98); Nucleated Red Blood Cells % 0 %; Platelet Count 298 10^3/cmm (157-399); Red Blood Count 3.92 10^6/uL (3.85-5.65); White Blood Count 7.08 10^3/uL (3.29-11.43)
[2025-01-17 17:31] LABS: INR 0.88 (0.8-1.2); Prothrombin Time 12.50 SECONDS (12.1-14.9)
[2025-01-17 17:38] LABS: Troponin(5th) Baseline < 6 ng/L (0-10)
[2025-01-17 17:40] LABS: Alanine Aminotransferase 11 U/L (0-33); Albumin Level 4.5 g/dL (3.5-5.2); Alkaline Phosphatase 56 U/L (35-105); Anion Gap 15.4 (5-19); Aspartate Amino Transferase 13 U/L (0-32); Blood Urea Nitrogen 19 mg/dL (6-20); Calcium 9.2 mg/dL (8.5-10.5); Carbon Dioxide 22 mmol/L (22-29); Chloride 106 mmol/L (98-107); Creatinine Clr Calc Pharmacy 96.0875; Globulin 2.5 g/dL (1.3-4.6); Glucose 131 mg/dL (65-115); Lipase 19 U/L (13-60); Osmolality Calculated 292 mOsm/kg (285-295); Potassium 4.4 mmol/L (3.5-5.1); Sodium 139 mmol/L (136-145); Total Protein 7.0 g/dL (6.6-8.7)
--- NOTE | 2025-01-17 17:49 | ECG_ITS ---
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
[2025-01-17 19:03] LABS: Troponin 5 2HR < 6.0 ng/L (0-10); Troponin 5 2HR Delta 0 ABS# (0-10)
[2025-01-17 19:54] LABS: Platelet Count 293 10^3/cmm (157-399)
--- NOTE | 2025-01-17 19:56 | PM.HP ---
Providers/Chief Complaint Admitting Physician: Phil Cruz MD Primary Care Provider: Felisa Benites MD Chief Complaint: chest pain History of Present Illness Allison So is a 49 year old female comes in with her Hua. Patient is seen for chest pain starting 10 AM. She had nausea then vomited had heavy chest pain vomited again. 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 She does not use tobacco or drugs alcohol is minimal. Patient reports that a month ago she had an episode of chest discomfort while babysitting came on his nausea she went to her mother's house laid on the couch. Dad has hypertension and abnormal stress test but not had selective coronary angiogram because he declined it. He also has A-fib on Eliquis and CHF. Past surgical history appendectomy cholecystectomy uterine ablation Review of Systems Narrative: General positive for weight gain after uterine ablation 2 years ago gained to 30 pounds she has had no further periods and went into menopause. 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 She thinks she was sent there because altered mental status but ultimately has not had further seizures. Hematologic negative Cancer negative Thyroid negative and she is not a diabetic Medications/Allergies Home Medications ?Medication ?Instructions ?Recorded ?Confirmed ?Last Taken ?Type alprazolam 0.25 mg tablet (Xanax) 0.25 mg PO TID PRN Anxiety 08/10/19 07/13/23 Unknown History cyclobenzaprine 5 mg tablet 5 mg PO BID PRN Spasms 08/10/19 07/13/23 Unknown History multivitamin with minerals 1 tab PO DAILY 08/10/19 07/13/23 08/09/19 History (Hair,Skin and Nails tablet) vit no.95-ferrous 1 tab PO DAILY 08/10/19 07/13/23 08/09/19 History fumarate 28 mg-folic acid 800 mcg tablet () hydrocortisone 2.5 % topical cream 1 applic CO QID hemorrhoids 10 07/13/23 07/13/23 Unknown Rx with perineal applicator days #30 grams (Anusol-HC) pantoprazole 40 mg tablet,delayed 40 mg PO BID 6 weeks #84 tabs 07/13/23 07/13/23 Unknown Rx release (Protonix) hydrocodone 5 mg-acetaminophen 325 1 tab PO Q6H PRN pain (scale score 08/05/24 Unknown Rx mg tablet 7-10) #14 tabs ondansetron 4 mg disintegrating 4 mg PO Q6H PRN nausea and 08/05/24 Unknown Rx tablet vomiting #14 tabs Allergies Allergy/AdvReac Type Severity Reaction Status Date / Time meperidine (From Demerol) Allergy Unknown Verified 01/17/25 15:58 morphine Allergy Unknown Verified 01/17/25 15:58 vancomycin Allergy Unknown Verified 01/17/25 15:58 PFSH Acute PFSH: Medical History (Updated 01/17/25 @ 20:02 by Phil Cruz MD) Obesity (BMI 35.0-39.9 without comorbidity) Family history of colon cancer Traumatic hematoma of right thigh Surgical History History of cholecystectomy History of appendectomy Family History Denies family history of Anesthesia complication Bleeding disorder Social History (Updated 01/17/25 @ 20:00 by Phil Cruz MD) Smoking and tobacco/nicotine status: never used tobacco/nicotine Alcohol intake: current Alcohol intake frequency: few times a month Substance/Drug Use: never Additional social history: 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 she wants full code no prolonged life support especially in setting of stroke she does not want life support this was discussed in presence of her Hua on 01/17/2025 with Phil Cruz MD Vitals/I&O/Wt Last Vital Signs Temp 97.7 F 01/17/25 15:54 Pulse 63 01/17/25 19:00 Resp 15 01/17/25 19:00 BP 134/78 01/17/25 19:00 Pulse Ox 100 01/17/25 19:00 Weight last 48 hrs Weight 92.986 kg Physical Exam Narrative: General Well-developed well-nourished overweight female in no acute cardiopulmonary stress Neck no JVD or bruits CV regular rate and rhythm Lungs clear to auscultation bilaterally Musculoskeletal no epigastric or sternal pain on palpation no pain on the back or flanks with percussion Abdomen positive bowel tones soft nontender no suprapubic tenderness Calves no tenderness cords pretibial edema Skin is warm and dry Mentation alert and orient x 3 good historian Data 01/17/25 19:48 01/17/25 16:46 A&P Assessment and plan 1. Chest pain: This has been exertional and relieved by nitroglycerin recurring and I will treat with nitro drip and serial enzymes ordered. Anticipate stress test in the morning potentially selective coronary angiogram. Patient sent to the cardiac stepdown unit 2. GERD (gastroesophageal reflux disease): Resume Protonix and give GI cocktail for next episode of chest pain 3. Obesity (BMI 35.0-39.9 without comorbidity): Patient is not on GLP-1's and no epigastric tenderness to suggest pancreatitis PDMP PDMP Reviewed: Not Reviewed Attestations Medical Necessity Statement*: Patient is admitted the hospital on observation and expected to disposition to home in less than 2 midnights Coding Level of Care Code 67961 Diagnoses Chest pain R07.9 GERD (gastroesophageal reflux disease) K21.9 Obesity (BMI 35.0-39.9 without comorbidity) E66.9 Time Spent (min) 55
[2025-01-17] MEDS: heparin 5,000 unit/mL INJ 1 mL IVP (20:09)
[2025-01-17] MEDS: heparin drip 25,000 UNIT/500 ML PREMIX 26 UNIT IV (20:15)
[2025-01-17] MEDS: nitroglycerin 1 gm/inch oint Pkt 0.5 INCH TOPICAL (20:32)
--- NOTE | 2025-01-17 23:02 | ECG_ITS ---
[email or web address] Date: 2025[facility]17 Pat Name: Allison So Department: Room: 107 Gender: Female Camera Supervisor: : 1975 Requested By: Ban Garcia Order Number: [id number] Abelardo MD: Héctor Vinson M.D. Measurements Intervals [place] Rate: 61 P: 15 AR: 149 QRS: 49 QRSD: 98 T: 48 QT: 423 QTc: 428 Interpretive Statements SINUS RHYTHM MINIMAL SEPTAL T WAVE INVERSIONS Compared to ECG 01/17/2025 18:03:40 No significant changes Electronically Signed On 01-18-2025 21:46:57 CDT by Héctor Vinson M.D. [email or web address]
[2025-01-17 23:37] LABS: Troponin 5 6HR < 6.0 ng/L (0-10); Troponin 5 6HR Delta 0 ng/L (0-12)
[2025-01-18] VITALS (9 sets, daily range): BP systolic 106–133; BP diastolic 68–87; PULSE 60–101; RESP 11–20; TEMP 36.3–36.9; O2SAT 98–100
[2025-01-18 03:09] LABS: Partial Thromboplastin Time > 250.0 SECONDS (23.9-36.7)
[2025-01-18 05:40] LABS: Partial Thromboplastin Time 52.9 SECONDS (23.9-36.7)
--- NOTE | 2025-01-18 06:11 | PC.NURSE ---
Heparin gtt At 0310 received critical ptt of greater than 250, contacted Dr Cruz, he ordered to hold for 2 hours and recheck ptt. the rechecked ptt was 52.[address] Cruz with results and he ordered to lower heparin gtt from 26mL/hr to 15mL/hr, see MAR
--- NOTE | 2025-01-18 07:50 | USCV_ITS ---
Judah Allison Age: 49 Gender: F : 1975 Exam Date: 01/18/2025 15:03 Ordering Phys: Joellen Prakash Technologist: [place] [facility] [place]: cp sob BP: 114 / 82 HR: 68 Rhythm: Sinus Technical Quality: Adequate MEASUREMENTS (Male / Female) Normal Values 2D ECHO LV Diastolic Diameter PLAX 3.8 cm 4.2 - 5.9 / 3.9 - 5.3 cm IVS Diastolic Thickness 1.2 cm 0.6 - 1.0 / 0.6 - 0.9 cm IVS Systolic Thickness 1.5 cm LVPW Diastolic Thickness 1.5 cm 0.6 - 1.0 / 0.6 - 0.9 cm LVPW Systolic Thickness 1.6 cm LVOT Diameter 1.7 cm LV Ejection Fraction 2D Teich 62.0 % LV Ejection Fraction MOD 4C 70.6 % LV Ejection Fraction MOD 2C 56.1 % LV Ejection Fraction 2C AL 55.1 % LA Diameter 2.8 cm LA Sys Volume AL 45.6 cm cubed LA Sys Volume Index AL 21.7 cm cubed/m squared Aorta at Sinotubular Diameter 2.6 cm IVC Diameter 1.5 cm M-MODE LA Ao Ratio MM 1.5 AV Cusp Separation MM 2.2 cm DOPPLER AV Peak Velocity 153.0 cm/s LVOT Peak Velocity 110.0 cm/s AV Area Cont Eq vti 1.9 cm squared AV Area Cont Eq pk 1.6 cm squared MV Area PHT 3.0 cm squared Mitral E to A Ratio 1.0 TV Peak Velocity 184.5 cm/s TR Peak Velocity 207.0 cm/s TR Peak Gradient 17.1 mmHg TV Peak E Velocity 75.0 cm/s PV Peak Velocity 98.0 cm/s FINDINGS Left Ventricle Left ventricle is normal in size. LV systolic function is normal with EF of 55-60%. No regional wall motion abnormalities are seen. Right Ventricle Normal in size and function Right Atrium Normal in size Left Atrium Normal in size Mitral Valve Structurally normal mitral valve. Mild mitral regurgitation. Aortic Valve Structurally normal aortic valve. No significant stenosis or regurgitation. Tricuspid Valve Insufficient TR jet to calculate RVSP Pulmonic Valve Not well visualized Pericardium Normal Aorta Normal in size IVC Appears to be normal CONCLUSIONS LV systolic function is normal with EF of 55-60% Mild mitral regurgitation No comparison studies are available. Jey Lopez MD (Electronically Signed) Final Date: 18 January 2025 17:26 S
[2025-01-18] MEDS: nitroglycerin 1 gm/inch oint Pkt 0.5 INCH TOPICAL (09:28)
--- NOTE | 2025-01-18 10:03 | P.CONIM_ITS ---
<Statement entered by Héctor Vinson MD - 01/18/25 17:08> Patient was evaluated and cared for in conjunction with an advanced practice practitioner. I personally examined the patient and reviewed the chart and all pertinent data including imaging, telemetry, and laboratory results. I discussed the patient in detail with the advanced practice practitioner. Please see their note for complete consult note, testing results and agreed upon plan of care for the patient. GENERAL: Patient is alert, awake and oriented x3. NECK: No JVD or carotid bruit HEART: Regular S1 and S2, no murmur LUNGS: Clear to auscultation bilaterally. EXTREMITIES: Lower extremities with out edema bilaterally. Symptoms consistent with unstable angina improved with nitroglycerin Proceed with current medical treatment and [facility] in am Providers/Reason For Consult 2 Consulting Physician/Specialty*: Dr Vinson, cardiology Reason for Consult*: Chest pain Requesting Physician: Davy Lara MD Attending Physician: Davy Lara MD Primary Care Provider: Felisa Benites MD History of Present Illness History of Present Illness Allison So is a 49 year old female with no significant past medical history, presented to the emergency room yesterday with new onset chest pain. 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 The pain radiated to her right jaw and was relieved by nitroglycerin. Troponin series: <6, <6, <6. Other laboratory unremarkable. Chest x-ray normal. EKGs did not show any acute ST or T wave changes, sinus rhythm. She was placed on heparin infusion. She apparently had another episode of chest pain 1 month ago but did not seek care. Medications/Allergies Home Medications ?Medication ?Instructions ?Recorded ?Confirmed ?Last Taken ?Type alprazolam 0.25 mg tablet (Xanax) 0.25 mg PO TID PRN A nxiety 08/10/19 01/17/25 1 Week Ago History ~01/10/25 multivitamin with minerals 1 tab PO DAILY 08/10/1906/0101/17/25 History (Hair,Skin and Nails tablet) vit no.95-ferrous 1 tab PO DAILY 08/10/1906/0101/17/25 History fumarate 28 mg-folic acid 800 mcg tablet () ondansetron 4 mg disintegrating 4 mg PO Q6H PRN nausea and 08/05/24 01/17/25 Unknown Rx tablet vomiting #14 tabs estradiol 0.075 mg/24 hr weekly 1 patch topical DIR ECTED 01/17/25 01/17/25 01/16/25 History transdermal patch Allergies Allergy/AdvReac Type Severity Reaction Status Date / Time meperidine (From Demerol) Allergy Unknown Verified 01/17/25 15:58 morphine Allergy Unknown Verified 01/17/25 15:58 vancomycin Allergy Unknown Verified 01/17/25 15:58 Current Medications Generic Name Dose Route Start Last Admin Trade Name Freq PRN Reason Stop Dose Admin Heparin Sodium/Sodium Chloride 25,000 unit in 500 mls @ 0 mls/hr 01/17/25 19:30 01/18/25 06:06 Heparin Drip IV 8.07 unit/kg/hr CONT NGUYEN 15 mls/hr Protocol Titration Per Protocol Nitroglycerin 0.5 inch 01/18/25 09:15 01/18/25 09:28 Nitroglycerin 1 Gm/Inch Oint Pkt TOPICAL 0.5 inch Q6H NGUYEN Administration Pantoprazole Sodium 40 mg 01/18/25 09:00 01/18/25 09:[address] 40 Mg Tablet PO 40 mg BID NGUYEN Administration PFSH Acute 2 PFSH: Medical History Obesity (BMI 35.0-39.9 without comorbidity) Family history of colon cancer Traumatic hematoma of right thigh Surgical History History of cholecystectomy History of appendectomy Family History Denies family history of Anesthesia complication Bleeding disorder Social History Smoking and tobacco/nicotine status: never used tobacco/nicotine Alcohol intake: current Alcohol intake frequency: few times a month Substance/Drug Use: never Additional social history: 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 no prolonged life support especially in setting of stroke she does not want life support this was discussed in presence of her Hua on 01/17/2025 with Phil Cruz MD Vitals/I&O/Wt Last Vital Signs Temp 97.3 F L 01/18/25 08:00 Pulse 73 01/18/25 09:28 Resp 18 01/18/25 08:00 BP 123/68 01/18/25 09:28 Pulse Ox 100 01/18/25 08:00 O2 Del Method Room Air 01/18/25 08:00 01/17/25 01/18/25 01/18/25 22:59 06:59 14:59 Intake Total 0 / 659.833 659.833 / 659.833 Balance 0 / 659.833 659.833 / 659.833 Weight last 48 hrs Weight 205 lb 11.2 oz Weight 206 lb 8 oz Weight 205 lb Physical Exam 2 Const: COMMON NORMALS: no acute distress and patient oriented x3 GENERAL APPEARANCE: cooperative and comfortable ORIENTATION/CONSCIOUSNESS: Yes awake, Yes oriented to person, Yes oriented to place and Yes oriented to time Chest: COMMONS NORMALS: normal inspection of the chest and normal palpation of entire chest wall CHEST: Yes Symmetrical chest wall rise Resp: COMMON NORMALS: normal respiratory effort, No retractions, No use of accessory muscles and clear to auscultation bilaterally EFFORT & INSPECTION: Yes symmetric chest movement AUSCULTATION: clear to auscultation bilaterally Cardio: COMMON NORMALS: regular rate, regular rhythm, S1 normal heart sound present, S2 normal heart sound present, No gallops present (Cardio), No clicks present (Cardio), No murmurs present (Cardio) and No rub (Cardio) RATE: r egular rate RHYTHM: regular rhythm HEART SOUNDS: S1 normal heart sound present and S2 normal heart sound present PERIPHERAL PULSES: radial pulses present Extremity: COMMON NORMALS: no pedal edema Neuro: COMMON NORMALS: patient oriented x3 and moves all extremities S ENSORIUM/ORIENTATION: Yes oriented to person, Yes oriented to place and Yes oriented to time Data 01/17/25 19:48 01/17/25 16:46 A&P Assessment and plan 1. Unstable angina pectoris: 2. Obesity (BMI 35.0-39.9 without comorbidity): Plan: Given the typical nature of her symptoms, relieved by nitroglycerin we will recommend coronary angiogram. The procedure has been discussed with the patient and her family in detail with risks and benefits including risk of bleeding, stroke, contrast-induced nephropathy. She is in agreement to proceed. Will plan for 7 AM tomorrow. N.p.o. after midnight tonight. Continue nitroglycerin paste 1/2 every 6 hours. PDMP PDMP Reviewed: Not Reviewed Coding Level of Care Code Acute Code for Chg Fwd Diagnoses Unstable angina pectoris I20.0 Obesity (BMI 35.0-39.9 without comorbidity) E66.9
[2025-01-18 11:21] LABS: Partial Thromboplastin Time 45.5 SECONDS (23.9-36.7)
--- NOTE | 2025-01-18 15:05 | P.PN_ITS ---
Subjective 2 Subjective: Patient was seen this morning, currently alert oriented x 3, following commands, denies any shortness of breath, no chest pain, no current symptoms of esophageal reflux, she denies any right upper quadrant pain, status post cholecystectomy Vitals/I&O/Wt Last Vital Signs Temp 98.1 F 01/18/25 12:00 Pulse 66 01/18/25 12:00 Resp 20 H 01/18/25 12:00 BP 133/82 01/18/25 12:00 Pulse Ox 99 01/18/25 12:00 O2 Del Method Room Air 01/18/25 12:00 01/18/25 01/18/25 01/18/25 06:59 14:59 22:59 Intake Total 659.833 / 659.833 200.25 / 200.25 Balance 659.833 / 659.833 200.25 / 200.25 Weight last 48 hrs Weight 93.304 kg Weight 93.667 kg Weight 92.986 kg Physical Exam 2 Const: COMMON NORMALS: no acute distress and patient oriented x3 Resp: COMMON NORMALS: normal respiratory effort, No retractions, No use of accessory muscles and clear to auscultation bilaterally AUSCULTATION: clear to auscultation bilaterally Cardio: COMMON NORMALS: regular rate, regular rhythm, S1 normal heart sound present and S2 normal heart sound present RATE: regular rate RHYTHM: r egular rhythm HEART SOUNDS: S1 normal heart sound present and S2 normal heart sound present GI: COMMON NORMALS: Normal to inspection, nondistended, normoactive bowel sounds present and non-tender Extremity: COMMON NORMALS: no pedal edema Neuro: COMMON NORMALS: patient oriented x3 Psych: COMMON NORMALS: mental status grossly normal Data 01/17/25 19:48 01/17/25 16:46 A&P Assessment and plan 1. Chest pain: 2. GERD (gastroesophageal reflux disease): Resume Protonix and give GI cocktail for next episode of chest pain 3. Obesity (BMI 35.0-39.9 without comorbidity): Patient is not on GLP-1's and no epigastric tenderness to suggest pancreatitis Plan: Chest pain - Monitor for recurrent chest pain - Serial EKGs, serial troponins, telemetry monitoring - Cardiac echo - Heparin drip - Aspirin, statin -Nitroglycerin topical - N.p.o. midnight, for coronary angiogram tomorrow Full code Heparin drip for DVT prophylaxis PDMP PDMP Reviewed: Not Reviewed Attestations 2 Medical Necessity Statement*: Patient requires hospitalization for chest pain Diagnoses Chest pain R07.9 GERD (gastroesophageal reflux disease) K21.9 Obesity (BMI 35.0-39.9 without comorbidity) E66.9
[2025-01-18] MEDS: ondansetron 2 mg/ML SDV 2 mL 4 MG IVP (16:47)
--- NOTE | 2025-01-18 17:31 | PC.NURSE ---
patient complaining of headache. Dr Lara notified that patient did not want to take hydrocodone for headache. Dr Lara ordered for tylenol 650 q6h. Order entered by nurse.
[2025-01-18 17:52] LABS: Partial Thromboplastin Time 66.3 SECONDS (23.9-36.7)
--- OUTSIDE RECORDS SUMMARY | 2025-01-18 18:00 | XMS_ITS | Encounter Summary ---
Author Organization [facility] Address [address] [place] [address] Phone Care Team Providers Care Electric Meter Technician Name Role Phone Landry Villarreal MD Primary Care Provider [phone] Encounter Details Date Type Department Care Team ([facility] st Contact Info) Description 12/12/2019 Orders Only [facility] [address] [place] [address] Radha Piña NP [address] [place] [address] Acute injury of kidney (HCC); Acute tubular necrosis (HCC) Social History Tobacco Use Types Packs/Day Years Used Date Smoking Tobacco: Never Smokeless Tobacco: Never Alcohol Use Standard Drinks/Week Comments Yes 0 (1 standard drink = 0.6 oz pur e alcohol) occasional Comments Unknown Sex and Gender Information Value Date Recorded Sex Assigned at Not on file Legal Sex Female 10:01 AM EDT Gender Identity Not on file Sexual Orientation Not on file COVID-19 Exposure Response Date Recorded In the last month, have you been in contact with someone who was confirmed or suspected to have Coronavirus / COVID-19? No / Unsure 12/14/2019 11:23 AM EDT documented as of this encounter Plan of Treatment Not on file documented as of this encounter Visit Diagnoses Diagnosis Acute injury of kidney Acute tubular necrosis (HCC) documented in this encounter Care Teams Electric Meter Technician Relationship Specialty Start Date End Date Landry Villarreal MD [address] [place] [address] PCP - General Family Medicine 10/10/19 documented as of this encounter
--- OUTSIDE RECORDS SUMMARY | 2025-01-18 18:00 | XMS_ITS | Encounter Summary ---
Author Organization [facility] Address [address] [place] [address] Phone Care Team Providers Care Housing And Residence Life Director Name Role Phone Landry Villarreal MD Primary Care Provider [phone] Encounter Details Date Type Department Care Team (Late st Contact Info) Description 11/21/2019 Orders Only [facility] [address] [place] [address] Radha Piña NP [address] [place] [address] Acute injury of kidney (HCC); [...] have Coronavirus / COVID-19? No / Unsure 11/14/2019 11:46 AM EDT documented as of this encounter Plan of Treatment Not on file documented as of this encounter Procedures Procedure Name Priority Date/Time Associated Diagnosis Comments BASIC METABOLIC PANEL Routine 12/05/2019 12:00 AM CDT Acute injury of kidney (HCC) Acute tubular necrosis (HCC) documented in this encounter Results * BMP (12/05/2019 12:00 AM CDT) Sodium 138 mEq/L [facility] Potassium 4.1 mEq/L [facility] Chloride 106 [facility] Carbon Dioxide 25 mmol/L [facility] Calcium 9.0 mg/dL [facility] BUN 14 mg/dL [facility] Creatinine 1.07 mg/dL [facility] Glucose 96 mg/dL [facility] eGFR Non-Afr Greenlandic 56 [facility] eGFR 68 [facility] Blood specimen (specimen) Venous blood / Unknown 12/05/2019 Narrative [facility] - 12/13/2019 7:31 AM CDT Ordered under PCP [address] [address] [place] Radha Piña TUB TENDER LAB BLOOD ORDERABLES Liane flores Result [facility] documented in this encounter Visit Diagnoses Diagnosis Acute injury of kidney Acute tubular necrosis (HCC) documented in this encounter Care Teams Housing And Residence Life Director Relationship Specialty Start Date End Date Landry Villarreal MD [address] [place] [id number] PCP - General Family Medicine 10/10/19 documented as of this encounter
--- OUTSIDE RECORDS SUMMARY | 2025-01-18 18:01 | XMS_ITS | Encounter Summary ---
Author Organization [facility] Address [address] [place] [address] Care Team Providers Care District Medical Examiner Name Role Phone Landry Villarreal MD Primary Care Provider [phone] Encounter Details Date Type Department Care Team (Late st Contact Info) Description 07/12/2007 Outpatient [facility] Willian [address] [place] [address] José Luis Castro MD [address] [facility] [address] [place] [address] Social History Tobacco Use Types Packs/Day Years Used Date Smoking Tobacco: Never Assessed Comments Unknown Sex and Gender Information Value Date Recorded Sex Assigned at Not on file Legal Sex Female 5:33 AM HATCH BOSS Gender Identity Not on file Sexual Orientation Not on file documented as of this encounter Plan of Treatment Not on file documented as of this encounter Visit Diagnoses Not on filedocumented in this encounter Care Teams District Medical Examiner Relationship Specialty Start Date End Date Landry Villarreal MD [address] [place] [address] PCP - General Family Practice 03/11/17 documented as of this encounter
--- OUTSIDE RECORDS SUMMARY | 2025-01-18 18:01 | XMS_ITS | Encounter Summary ---
Author Organization [facility] Address [address] [place] [address] Care Team Providers Care Near Eastern Archaeology Lecturer Name Role Phone Landry Villarreal MD Primary Care Provider [phone] Encounter Details Date Type Department Care Team (Late st Contact Info) Description 03/08/2007 Outpatient [facility] Willian [address] [place] [address] José Luis Castro MD [address] [facility] [address] [place] [address] Social History Tobacco Use Types Packs/Day Years Used Date Smoking Tobacco: Never Assessed Comments Unknown Sex and Gender Information Value Date Recorded Sex Assigned at Not on file Legal Sex Female 5:33 AM PRESENTATION DESIGNER Gender Identity Not on file Sexual Orientation Not on file documented as of this encounter Plan of Treatment Not on file documented as of this encounter Visit Diagnoses Not on filedocumented in this encounter Care Teams Near Eastern Archaeology Lecturer Relationship Specialty Start Date End Date Landry Villarreal MD [address] [place] [address] PCP - General Family Practice 03/11/17 documented as of this encounter
--- OUTSIDE RECORDS SUMMARY | 2025-01-18 18:01 | XMS_ITS | Encounter Summary ---
Author Organization [facility] Address [address] [place] [address] Care Team Providers Care Preventive Medicine Officer Name Role Phone Landry Villarreal MD Primary Care Provider [phone] Encounter Details Date Type Department Care Team (Late st Contact Info) Description 12/26/1999 Outpatient Historical [facility] Dermatology- 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
--- OUTSIDE RECORDS SUMMARY | 2025-01-18 18:01 | XMS_ITS | Encounter Summary ---
Author Organization [facility] Address [address] [place] [address] Care Team Providers Care Gasoline Tractor Operator Name Role Phone Landry Villarreal MD Primary Care Provider Encounter Details Date Type Department Care Team (Latest Contact Info) Description 12/11/2005 Outpatient Historical [facility] OBGYN-Lee Sanju [place] [address] [place] [address] José Luis Casrto MD [address] [facility] [address] [place] [address] Routine Gynecological Examination (Primary Dx) Social History Tobacco Use Types Packs/Day Years Used Date Smoking Tobacco: Never Assessed Comments Unknown Sex and Gender Information Value Date Recorded Sex Assigned at Not on file 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
--- OUTSIDE RECORDS SUMMARY | 2025-01-18 18:01 | XMS_ITS | Encounter Summary ---
Author Organization [facility] Address [address] [place] [address] Care Team Providers Care Upholstery Tech Name Role Phone Landry Villarreal MD Primary Care Provider [phone] Encounter Details Date Type Department Care Team (Late st Contact Info) Description 07/19/2019 Ancillary Orders [facility] Orthopedics - Orthopedic [facility] [address] [place] [address] 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 External Provider [facility] MR ORDERABLES Final Resu lt documented in this encounter Visit Diagnoses Diagnosis Pain Generalized pain Pain Generalized pain documented in this encounter Care Teams Upholstery Tech Relationship Specialty Start Date End Date Landry Villarreal MD [address] [place] [address] PCP - General Family Practice 03/11/17 documented as of this encounter
--- OUTSIDE RECORDS SUMMARY | 2025-01-18 18:01 | XMS_ITS | Encounter Summary ---
Author Organization [facility] Address [address] [place] [address] Care Team Providers Care Technology Advisor Name Role Phone Landry Villarreal MD Primary Care Provider [phone] Encounter Details Date Type Department Care Team (Latest Contact Info) Description 05/30/2004 Outpatient Historical [facility] Medicine [address] [address] Jocelyne Hair MD [address] [place] [phone] DERMATITIS NOS (Primary Dx); DERMATOPHYTOSIS OF BODY Social History Tobacco Use Types Packs/Day Years Used Date Smoking Tobacco: Never Assessed Comments Unknown Sex and Gender Information Value Date Recorded Sex Assigned at Not on file Legal Sex Female 5:33 AM TALENT SPECIALIST Gender Identity Not on file Sexual Orientation Not on file documented as of this encounter Plan of Treatment Not on file documented as of this encounter Visit Diagnoses Diagnosis Contact dermatitis and other eczema, due to unspecified cause- Primary Dermatophytosis of the body documented in this encounter Care Teams Technology Advisor Relationship Specialty Start Date End Date Landry Villarreal MD [address] [place] [address] PCP - General Family Practice 03/11/17 documented as of this encounter
--- OUTSIDE RECORDS SUMMARY | 2025-01-18 18:01 | XMS_ITS | Encounter Summary ---
Author Organization [facility] Address [address] [place] [address] Care Team Providers Care Cable Tower Operator Name Role Phone Landry Villarreal MD Primary Care Provider [phone] Encounter Details Date Type Department Care Team (Late st Contact Info) Description 12/29/2006 Outpatient Historical [facility] Imaging Services-Lee Sanju Willian [address] [place] [address] Social History Tobacco Use Types Packs/Day Years Used Date Smoking Tobacco: Never Assessed Comments Unknown Sex and Gender Information Value Date Recorded Sex Assigned at Not on file Legal 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
--- OUTSIDE RECORDS SUMMARY | 2025-01-18 18:01 | XMS_ITS | Encounter Summary ---
Author Organization [facility] Address [address] [place] [address] Care Team Providers Care Clinic Physician Name Role Phone Landry Villarreal MD Primary Care Provider [phone] Encounter Details Date Type Department Care Team (Latest Contact Info) Description 04/04/2004 Outpatient Historical [facility] [address] [place] [phone] Braulio Machado MD [address] [place] [address] ASTHMA UNSPECIFIED (Primary Dx); BRONCHITIS NOS Social History Tobacco Use Types Packs/Day Years Used Date Smoking Tobacco: Never Assessed Comments Unknown Sex and Gender Information Value Date Recorded Sex Assigned at Not on file 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
--- OUTSIDE RECORDS SUMMARY | 2025-01-18 18:01 | XMS_ITS | Encounter Summary ---
Author Organization [facility] Address [address] [place] [address] Care Team Providers Care Field Service Coordinator Name Role Phone Landry Villarreal MD Primary Care Provider [phone] Encounter Details Date Type Department Care Team (Late st Contact Info) Description 01/15/2005 Outpatient Historical [facility] OBGYN-Lee Sanju Willian [address] [place] [address] José Luis Castro MD [address] [facility] [address] [place] [address] Social History Tobacco Use Types Packs/Day Years Used Date Smoking Tobacco: Never Assessed Comments Unknown Sex and Gender Information Value Date Recorded Sex Assigned at Not on file Legal Sex Female 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
--- OUTSIDE RECORDS SUMMARY | 2025-01-18 18:01 | XMS_ITS | Encounter Summary ---
Author Organization [facility] Address [address] [place] [address] Care Team Providers Care Draw Bench Operator Helper Name Role Phone Landry Villarreal MD Primary Care Provider [phone] Encounter Details Date Type Department Care Team (Late st Contact Info) Description 05/27/2006 Outpatient Historical [facility] Imaging Services-Lee Sanju Willian [address] [place] [address] Social History Tobacco Use Types Packs/Day Years Used Date Smoking Tobacco: Never Assessed Comments Unknown Sex and Gender Information Value Date Recorded Sex Assigned at Not on file Legal 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
--- OUTSIDE RECORDS SUMMARY | 2025-01-18 18:01 | XMS_ITS | Clinical Summary ---
Author Organization [facility] Address [address] [place] [address] Care Team Providers Care Mail Forwarding System Markup Clerk Name Role Phone Landry Villarreal MD Primary Care Provider [phone] Allergies Active Allergy Reactions Criticality Noted Date Comments Avocado Hives,Other (see comments) 08/05/2019 Lips swelled Hydrocodone Other (see comments) 11/10/2019 Hydrocodone-Acetaminop hen Itching,Rash Low 10/13/2007 Meperidine Hives,Other (see comments),Itching,Sw elling 10/13/2007 Morphine Other (see comments),Shortness of breath High 10/13/2007 Had difficulty breathing and blacked out. They had to give her Narcan. Medications Probiotic Product (PROBIOTIC-10 PO) Take 1 capsule by mouth 1 (one) time each day Active acetaminophen (TYLENOL) 500 MG tablet Take 1,000 mg by mouth every 8 (eight) hours if needed 10/17/2019 Active ALPRAZolam (XANAX) 0.5 MG tablet Take 0.5 mg by mouth 2 (two) times a day if needed Active promethazine (PHENERGAN) 12.5 MG tablet Take 1 tablet by mouth every 8 (eight) hours if needed 10/19/2019 Active oxyCODONE (Roxicodone) 5 MG immediate release tablet Take 5 mg by mouth every 4 (four) hours if needed for moderate pain Active Lactobacillus Bifidus (LACTO-BIFIDUS- 600 PO) Take 1 capsule by mouth 2 (two) times a day Active amLODIPine (NORVASC) 2.5 MG tablet Take 2.5 mg by mouth daily 12/05/2019 Active FLUoxetine (PROzac) 10 MG capsule Take 10 mg by mouth 1 (one) time each day 11/08/2019 Active Active Problems Problem Noted Date Diagnosed Date 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 Family History Medical History Relation Comments Cancer Maternal Grandmother Cancer Paternal Grandfather Gout Paternal Grandmother Heart disease Paternal Grandmother Hypertension Paternal Grandmother Dementia Neg Hx Diabetes Neg Hx Kidney disease Neg Hx Stroke Neg Hx Relation Status Comments Father Alive Maternal Grandmother Mother Alive Paternal Grandfather Paternal Grandmother Social History Tobacco Use Types Packs/Day Years Used Date Smoking Tobacco: Never Smokeless Tobacco: Never Alcohol Use Standard Drinks/Week Comments Yes 0 (1 standard drink = 0.6 oz pur e alcohol) occasional Comments Unknown Sex and Gender Information Value Date Recorded Sex Assigned at Not on file Legal Sex Female 10:01 AM EDT Gender Identity Not on file Sexual Orientation Not on file Last Filed Vital Signs Vital Sign Reading Time Taken Comments Blood Pressure 112/80 12/14/2019 11:27 AM CDT Pulse 72 12/14/2019 11:27 AM CDT Temperature 37.3 C (99.1 F) 12/14/2019 11:27 AM CDT Respiratory Rate - - Oxygen Saturation - - Inhaled Oxygen Concentration - - Weight 79.4 kg (175 lb) 12/14/2019 11:27 AM CDT Height 162.6 cm (5' 4 ) 12/14/2019 11:27 AM CDT Body Mass Index 30.04 12/14/2019 11:27 AM CDT Plan of Treatment Health Maintenance Due Date Last Done Comments Hepatitis B Vaccine (1 of 3 - 19+ 3-dose series) 1996 Influenza Vaccine (#1) 2025 Pneumococcal Vaccine: Peds ( 0 to 5 Years) and At-Risk Patients (6 to 49 Years) Aged Out No longer eligible b ased on patient's age to complete this topic Insurance [facility] [place] Care Teams Mail Forwarding System Markup Clerk Relationship Specialty Start Date End Date Landry Villarreal MD [address] [place] [id number] PCP - General Family Medicine 10/10/19
--- OUTSIDE RECORDS SUMMARY | 2025-01-18 18:01 | XMS_ITS | Encounter Summary ---
Author Organization [facility] Address [address] [place] [address] Care Team Providers Care Chlorinator Operator Name Role Phone Landry Villarreal MD Primary Care Provider [phone] Reason for Referral * Radiology Services (Urgent) - Closed Specialty Diagnoses / Procedures Referred By Samantha hubbard Referred To Contact Radiology Diagnoses Henry Wolf lesion Procedures IR TUBE PLACEMENT Ana Arambula MD [facility] Interventional Radiology [address] [place] [address] Phone: tel: fax: Referral ID Status Reason Start Date Expiration Date Visits Re quested Visits Authorized [id number] Closed 09/19/2019 10/19/2020 1 1 Encounter Details Date Type Department Care Team (Late st Contact Info) Description 09/19/2019 Ancillary Orders [facility] General and Trauma Surgery-[place] [address] [facility] [address] [place] [address] Ana Arambula MD NO ADDRESS ON FILE Henry Wolf lesion Social History Tobacco Use Types Packs/Day Years Used Date Smoking Tobacco: Never Smokeless Tobacco: Never Alcohol Use Standard Drinks/Week Comments Not Currently 0 (1 standard drink = 0.6 oz pur e alcohol) Comments No Sex and Gender Information Value Date Recorded Sex Assigned at Not on file 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 No / Unsure 09/19/2019 10:24 AM CDT documented as of this encounter Plan of Treatment Not on file documented as of this encounter Results * IR TUBE PLACEMENT (09/19/2019 12:00 PM CDT) Anatomical Region Laterality Modality X-Ray Angiograph y 09/19/2019 12:0 0 PM CDT Impressions 09/19/2019 1:51 PM CDT IMPRESSION: Please see below. Exam: Ultrasound-guided right thigh and buttock fluid collection drain placement Date/Time of Exam: 09/19/2019 12:00 PM REASON FOR EXAM: See Diagnosis. DIAGNOSIS: Henry Wolf lesion. Medications: Fentanyl and versed were titrated to effect. Estimated Blood Loss: Minimal Complications:None Implantable Devices: 10 Marshallese locking pigtail drain Procedure: After informed consent was obtained from the patient, the patient was taken to the angiography suite and placed supine on the bed. The patient's right thigh was prepped and draped in sterile fashion. A timeout was performed. Ultrasound evaluation of the right thigh and lateral buttocks revealed a large simple appearing fluid collection in the subjacent tissues. The skin and subcutaneous tissues overlying the inferior anterior aspect of the collection were anesthetized with lidocaine. A small dermatotomy was made and 11 blade scalpel. Under direct ultrasound guidance, a 10 Marshallese locking pigtail drain was introduced into the collection. Placement was confirmed with aspiration of thin dark brown fluid. The catheter was secured in place with 2-0 Ethilon and a sterile bandage was applied. The catheter was attached to a suction assisted gravity drain bag. The patient left the angiography suite in good condition. Findings: Large right lateral thigh/buttock fluid collection consistent with seroma/hematoma. This is superficial to the interface of the muscular fascia and the subjacent tissues as is often seen with a classic Henry Wolf lesion. However, a Henry Wolf variant is a consideration. IMPRESSION: Successful placement of a right thigh drain as described above. Narrative Procedure Note Alessandro Linn MD - 09/19/2019 IMPRESSION: Please see below. Exam: Ultrasound-guided right thigh and buttock fluid collection drain placement Date/Time of Exam: 09/19/2019 12:00 PM REASON FOR EXAM: See Diagnosis. DIAGNOSIS: Henry Wolf lesion. Medications: Fentanyl and versed were titrated to effect. Estimated Blood Loss: Minimal Complications:None Implantable Devices: 10 Marshallese locking pigtail drain Procedure: After informed consent was obtained from the patient, the patient was taken to the angiography suite and placed supine on the bed. The patient's right thigh was prepped and draped in sterile fashion. A timeout was performed. Ultrasound evaluation of the right thigh and lateral buttocks revealed a large simple appearing fluid collection in the subjacent tissues. The skin and subcutaneous tissues overlying the inferior anterior aspect of the collection were anesthetized with lidocaine. A small dermatotomy was made and 11 blade scalpel. Under direct ultrasound guidance, a 10 Marshallese locking pigtail drain was introduced into the collection. Placement was confirmed with aspiration of thin dark brown fluid. The catheter was secured in place with 2-0 Ethilon and a sterile bandage was applied. The catheter was attached to a suction assisted gravity drain bag. The patient left the angiography suite in good condition. Findings: Large right lateral thigh/buttock fluid collection consistent with seroma/hematoma. This is superficial to the interface of the muscular fascia and the subjacent tissues as is often seen with a classic Henry Wolf lesion. However, a Henry Wolf variant is a consideration. IMPRESSION: Successful placement of a right thigh drain as described above. Ana Arambula MD IR ORDERABLES Final Res ult documented in this encounter Visit Diagnoses Diagnosis Henry Wolf lesion Contusion of unspecified site Henry Wolf lesion Contusion of unspecified site documented in this encounter Care Teams Chlorinator Operator Relationship Specialty Start Date End Date Landry Villarreal MD [address] [place] [address] PCP - General Family Practice 03/11/17 documented as of this encounter
--- OUTSIDE RECORDS SUMMARY | 2025-01-18 18:01 | XMS_ITS | Encounter Summary ---
Author Organization [facility] Address [address] [place] [address] Care Team Providers Care Sales Planner Name Role Phone Landry Villarreal MD Primary Care Provider [phone] Encounter Details Date Type Department Care Team (Latest Contact Info) Description 08/03/2006 Outpatient Historical [facility] Medicine [address] [address] Gwen Christian MD [address] [place], [place] [address] Abdominal Pain, Right Lower Quadrant (Primary Dx) Social History Tobacco Use Types Packs/Day Years Used Date Smoking Tobacco: Never Assessed Comments Unknown Sex and Gender Information Value Date Recorded Sex Assigned at Not on file 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
--- OUTSIDE RECORDS SUMMARY | 2025-01-18 18:01 | XMS_ITS | Encounter Summary ---
Author Organization [facility] Address [address] [place] [address] Care Team Providers Care Communications Associate Name Role Phone Landry Villarreal MD Primary Care Provider [phone] Encounter Details Date Type Department Care Team (Latest Contact Info) Description 10/17/2003 Outpatient Historical [facility] OBGYN-Lee Sanju [place] [address] [place] [address] José Luis Castro MD [address] [facility] [address] [place] [address] FEMALE GENITAL SYMPTOMS NOS (Primary Dx) Social History Tobacco Use Types Packs/Day Years Used Date Smoking Tobacco: Never Assessed Comments Unknown Sex and Gender Information Value Date Recorded Sex Assigned at Not on file Legal 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
--- OUTSIDE RECORDS SUMMARY | 2025-01-18 18:01 | XMS_ITS | Encounter Summary ---
Author Organization [facility] Address [address] [place] [address] Care Team Providers Care Sales Operations Specialist Name Role Phone Landry Villarreal MD Primary Care Provider [phone] Encounter Details Date Type Department Care Team (Latest Contact Info) Description 05/29/2005 Outpatient Historical [facility] Orthopedics- 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
--- OUTSIDE RECORDS SUMMARY | 2025-01-18 18:01 | XMS_ITS | Encounter Summary ---
Author Organization [facility] Address [address] [place] [address] Care Team Providers Care Word Processing Specialist Name Role Phone Landry Villarreal MD Primary Care Provider [phone] Encounter Details Date Type Department Care Team (Late st Contact Info) Description 08/05/2007 Outpatient Historical [facility] Operating Room [address] [address] Aiden Regalado MD [address] [place] [address] [address] Social History Tobacco Use Types Packs/Day Years Used Date Smoking Tobacco: Never Assessed Comments Unknown Sex and Gender Information Value Date Recorded Sex Assigned at Not on file Legal Sex Female 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 Gender Identity Not on file Sexual Orientation Not on file documented as of this encounter Plan of Treatment Not on file documented as of this encounter Procedures Procedure Name Priority Date/Time Associated Diagnosis Comments PATHOLOGY Routine 08/05/2007 9:07 AM ELECTRICAL LINE WORKER documented in this encounter Results * PATHOLOGY (08/05/2007 9:07 AM ELECTRICAL LINE WORKER) PATHOLOGY/CYT OLOGY REPORT [facility] [address] [facility] [address] Patient: ALLISON BARRERA Accn No: [id number] Collected: 08/05/2007 9:07:00 AM SURGICAL PATHOLOGY FINAL REPORT Diagnosis A. Vermiform appendix, appendectomy - fibrous obliteration of lumen. Ene Pimentel M.D. (Electronically signed by) Verified: 08/07/07 DALLASW/VAL Clinical Information None. Specimen Source AAppendix Microscopic Description Microscopic examination was performed. Gross Description Part A. Submitted in a container of formalin labelled Judah is an appendix with attached fatty tissue measuring 4.4 cm in length and 0.5 cm in diameter. No adhesions are seen on the serosal surface. Upon sectioning, the tip has a solid yellowish-thomas cut surface. The wall of the appendix appears intact. A pinpoint lumen is seen. The specimen is submitted entirely in A1-A2. DLS/CEP INTERFACE SYSTEM 08/05/2007 9:07 AM ELECTRICAL LINE WORKER us Aiden Regalado MD PATHOLOGY/CYTOLOGY ORDERABLES Final Result INTERFACE SYSTEM Refer to clinic/hospital department documented in this encounter Visit Diagnoses Not on filedocumented in this encounter Care Teams Word Processing Specialist Relationship Specialty Start Date End Date Landry Villarreal MD [address] [place] [address] PCP - General Family Practice 03/11/17 documented as of this encounter
--- OUTSIDE RECORDS SUMMARY | 2025-01-18 18:01 | XMS_ITS | Encounter Summary ---
Author Organization [facility] Address [address] [place] [address] Care Team Providers Care Creative Director Name Role Phone Landry Villarreal MD Primary Care Provider Encounter Details Date Type Department Care Team (Late st Contact Info) Description 08/05/2007 Outpatient Historical [facility] Gen Spec Surg 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 [address] [address] RE: Allison So : 1975 Dear Joseph: I saw Allison in the office today regarding her right lower quadrant abdominal pain. She was in theER a couple of days ago and had a negative CT but continues to have pain. She might have just had early appendicitis or she may have something totally different. Since she persists in having pain I think she warrants appendectomy. We are going to set that up for later today. Thank you for referring her. Let me know if I can help in the future. Sincerely, Aiden Regalado M.D. General & Specialty Surgery Electronically Signed by Aiden Regalado M.D. 08/20/2007 05:50 , A, vlae Job #: Document #: [id number] cc: documented in this encounter Plan of Treatment Not on file documented as of this encounter Visit Diagnoses Not on filedocumented in this encounter Care Teams Creative Director Relationship Specialty Start Date End Date Landry Villarreal MD [address] [place] [address] PCP - General Family Practice 03/11/17 documented as of this encounter
--- OUTSIDE RECORDS SUMMARY | 2025-01-18 18:01 | XMS_ITS | Encounter Summary ---
Author Organization [facility] Address [address] [place] [address] Care Team Providers Care Swedger Name Role Phone Landry Villarreal MD Primary Care Provider [phone] Encounter Details Date Type Department Care Team (Latest Contact Info) Description 09/03/2006 Outpatient Historical [facility] Medicine [address] [address] Louie Berman, MANAGER ENTRY [address] [place] [address] Acute Upper Respiratory Infections of Unspecified Site (Primary Dx); Allergic Rhinitis, Cause Unspecified Social History Tobacco Use Types Packs/Day Years Used Date Smoking Tobacco: Never Assessed Comments Unknown Sex and Gender Information Value Date Recorded Sex Assigned at Not on file Legal 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
--- OUTSIDE RECORDS SUMMARY | 2025-01-18 18:01 | XMS_ITS | Encounter Summary ---
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
--- OUTSIDE RECORDS SUMMARY | 2025-01-18 18:01 | XMS_ITS | Patient Health Record ---
Author Organization [facility] Address [address] [place] [address] Care Team Providers Care Violin Tutor Name Role Phone [place], [facility] Primary Care Provider [facility], [facility] Unavailable [phone] Allergies Allergen (clinical drug ingredient) Drug/Non Drug Allergy documented on EMR Reaction Allergy Type Onset Date Status meperidine Demerol itching Drug Allergy Active morphine Morphine LOC Drug Allergy Active Reason For Referral No Information Medications Medication SIG (Take, Route, Frequency, Duration) Notes Start Date End Date Status Enskyce 0.15-30 MG-MCG Tablet Oral; Duration: 28 Active buPROPion HCl ER (XL) 300 MG Tablet Extended Release 24 Hour TAKE 1 TABLET BY MOUTH EVERY 24 HOURS Oral; Duration: 30 Active Phentermine HCl 37.5 MG Tablet 1 tablet Orally Once a day; Duration: 30 days 10/15/2021 Active Phentermine HCl 37.5 MG Tablet TAKE 1 TABLET BY MOUTH ONCE DAILY Oral; Duration: 30 Not-Taking ALPRAZolam 0.5 MG Tablet Oral; Duration: 10 Active Social History Tobacco Use: Social History Observation Description Date Details (start date - stop date) Never Smoker NA - NA Social History Depression Screening Social Info Question Answer Notes PHQ-9 Little interest or pleasure in doing thin gs Not at all Feeling down, depressed, or hopeless Not at all Trouble falling or staying asleep, or sleeping t oo much Not at all Feeling tired or having little energy Not at all Poor appetite or overeating Not at all Feeling bad about yourself, or that you are a failure, or have let yourself or your family down Not at all Trouble concentrating on thi ngs, such as reading the newspaper or watching television Not at all Moving or speaking so slowly that other people could have noticed. Or the opposite ? being so fidgety or restless that you have been moving around a lot more than usual Not at all Thoughts that you would be b mariah off , or of hurting yourself in some way Not at all Total Score 0 Drugs/Alcohol: Social Info Question Answer Notes Drugs Have you used drugs other than those for medical reasons in the past 12 months? No Tobacco Use: Social Info Question Answer Notes xTobacco Use/Smoking Are you a nonsmoker Additional Details Category Social Info Options Details Drugs/Alcohol: Do you drink alcohol? No Section Notes: 10/15/2021 Problems Problem Type SNOMED Code ICD Code Onset Dates Problem Status W/U Status Risk Notes Problem Anxiety (25930974) Anxiety (F41.9) Active confirmed Problem Obesity (534070550) Obesity (BMI 30-39.9) (E66.9) Active confirmed Problem Depression (296941003) Other depression (F32.89) Active confirmed Plan Of Treatment No Information Medical (General) History Medical History History ICD Code Chicken Pox Surgical History Surgery Date(Month/Year) cholecystectomy 2005 appendectomy 2007 Hospitalization History Reason Date(Month/Year) appendectomy 2007 childbirth x3
--- OUTSIDE RECORDS SUMMARY | 2025-01-18 18:01 | XMS_ITS | Encounter Summary ---
Author Organization [facility] Address [address] [place] [address] Care Team Providers Care Car Sales Representative Name Role Phone Landry Villarreal MD Primary Care Provider [phone] Encounter Details Date Type Department Care Team (Latest Contact Info) Description 10/13/2005 Outpatient Historical [facility] Medicine [address] [address] Louie Berman, RECREATION ACTIVITIES COORDINATOR [address] [place] [address] Sprain and Strain of Unspecified Site of Shoulder and Upper Arm (Primary Dx) Social History Tobacco Use Types Packs/Day Years Used Date Smoking Tobacco: Never Assessed Comments Unknown Sex and Gender Information Value Date Recorded Sex Assigned at Not on file Legal 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
--- OUTSIDE RECORDS SUMMARY | 2025-01-18 18:01 | XMS_ITS | Encounter Summary ---
Author Organization [facility] Address [address] [place] [address] Care Team Providers Care Lint Cleaner Name Role Phone Landry Villarreal MD Primary Care Provider [phone] Encounter Details Date Type Department Care Team (Late st Contact Info) Description 05/26/2006 Outpatient Historical [facility] Imaging Services-[facility] Sanju Willian [address] [place] [address] José Luis Castor MD [address] [facility] [address] [place] [address] Social History Tobacco Use Types Packs/Day Years Used Date Smoking Tobacco: Never Assessed Comments Unknown Sex and Gender Information Value Date Recorded Sex Assigned at Not on file Legal Sex Female 5:33 AM CERTIFIED FINANCIAL PLANNER Gender Identity Not on file Sexual Orientation Not on file documented as of this encounter Plan of Treatment Not on file documented as of this encounter Procedures Procedure Name Priority Date/Time Associated Diagnosis Comments US PELVIS COMPLETE Routine 05/26/2006 1: 47 PM CERTIFIED FINANCIAL PLANNER documented in this encounter Results * US PELVIS COMPLETE (05/26/2006 1:47 PM CERTIFIED FINANCIAL PLANNER) Anatomical Region Laterality Modality Pelvis Other 05/26/2006 1:47 PM CERTIFIED FINANCIAL PLANNER Narrative 05/26/2006 1:47 PM CERTIFIED FINANCIAL PLANNER TRANSVAGINAL PELVIC ULTRASOUND - 05/27/06Uterus unremarkable. Endometrium measures 3 mm in greatest thickness. Unremarkable appearing ovaries. No abnormal adnexal mass. Small amount of free fluid within the right adnexal region. Impression: Essentially unremarkable exam. - Dictated By: Severiano Cruz M.D. Electronically Signed By: Severiano Cruz M.D. Date Signed: 05/27/06 [facility] Procedure Note Provider, Historical - 04/26/2009 TRANSVAGINAL PELVIC ULTRASOUND - 05/27/06Uterus unremarkable. Endometriummeasures 3 mm in greatest thickness. Unremarkable appearing ovaries. No abnormal adnexal mass. Small amount of free fluid within the rightadnexal region. Impression: Essentially unremarkable exam. - Dictated By: Severiano Cruz M.D. Electronically Signed By: Severiano Cruz M.D. Date Signed: 05/27/06 [facility] José Luis Castro MD US ORDERABLES Final Result documented in this encounter Visit Diagnoses Not on filedocumented in this encounter Care Teams Lint Cleaner Relationship Specialty Start Date End Date Landry Villarreal MD [address] [place] [address] PCP - General Family Practice 03/11/17 documented as of this encounter
--- OUTSIDE RECORDS SUMMARY | 2025-01-18 18:01 | XMS_ITS | Encounter Summary ---
Author Organization [facility] Address [address] [place] [address] Care Team Providers Care Kitchen Stewardess Name Role Phone Landry Villarreal MD Primary Care Provider [phone] Encounter Details Date Type Department Care Team (Latest Contact Info) Description 12/28/2006 Outpatient Historical [facility] Medicine [address] [address] Louie Berman, FACE HARDENER [address] [place] [address] Other Affections of Shoulder Region, not Elsewhere Classified (Primary Dx); Sprain and Strain of Unspecified Site of Shoulder and Upper Arm Social History Tobacco Use Types Packs/Day Years Used Date Smoking Tobacco: Never Assessed Comments Unknown Sex and Gender Information Value Date Recorded Sex Assigned at Not on file Legal 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
--- OUTSIDE RECORDS SUMMARY | 2025-01-18 18:01 | XMS_ITS | Encounter Summary ---
Author Organization [facility] Address [address] [place] [address] Care Team Providers Care Axle Bearing Polisher Name Role Phone Landry Villarreal MD Primary Care Provider [phone] Encounter Details Date Type Department Care Team (Late st Contact Info) Description 08/16/2004 Inpatient Historical HIS IN BED Brandon Trejo MD NO ADDRESS ON FILE VIRAL ENTERITIS NOS (Primary Dx) Social History Tobacco Use Types Packs/Day Years Used Date Smoking Tobacco: Never Assessed Comments Unknown Sex and Gender Information Value Date Recorded Sex Assigned at Not on file Legal Sex Female 5:33 AM OFFICE RECEPTIONIST Gender Identity Not on file Sexual Orientation Not on file documented as of this encounter Plan of Treatment Not on file documented as of this encounter Procedures Procedure Name Priority Date/Time Associated Diagnosis Comments CBC WITH DIFFERENTIAL Routine 08/18/2004 5:06 AM OFFICE RECEPTIONIST COMPREHENSIVE METABOLIC PANEL Routine 08/18/2004 5:06 AM OFFICE RECEPTIONIST C. DIFFICILE DETECTION Routine 5 2:15 PM OFFICE RECEPTIONIST URINALYSIS MICROSCOPY ONLY Routine 08/16/2004 10:20 PM OFFICE RECEPTIONIST URINALYSIS W/REFLEX MICROSCOPIC Routine 08/16/2004 10:20 PM OFFICE RECEPTIONIST DIFFERENTIAL, MANUAL Routine 08/16/2004 1:30 PM OFFICE RECEPTIONIST CBC WITH DIFFERENTIAL Routine 08/16/2004 1:30 PM OFFICE RECEPTIONIST COMPREHENSIVE METABOLIC PANEL Routine 08/16/2004 1:30 PM OFFICE RECEPTIONIST documented in this encounter Results * (ABNORMAL) COMPREHENSIVE METABOLIC PANEL (08/18/2004 5:06 AM OFFICE RECEPTIONIST) Pathologist [facility] GLUCOSE 131(H) 70 - 110 mg/dL INTERFACE SYSTEM BUN 11 7 - 17 mg/dL INTERFACE SYSTEM CREATININE 0.9 0.7 - 1.2 mg/dL (inactive) INTERFACE SYSTEM SODIUM 135(L) 136 - 145 mEq/L INTERFACE SYSTEM POTASSIUM 4.3 3.5 - 5.0 mEq/L INTERFACE SYSTEM CO2 24 22 - 32 mmol/l INTERFACE SYSTEM CHLORIDE 106 95 - 110 mEq/L INTERFACE SYSTEM CALCIUM 8.4 8.4 - 10.5 mg/dL INTERFACE SYSTEM ALKALINE PHOSPHATASE 41 38 - 126 IU/L INTERFACE SYSTEM TOTAL PROTEIN 7.0 6.3 - 8.2 g/dL INTERFACE SYSTEM ALBUMIN 3.4(L) 3.5 - 5.0 g/dL INTERFACE SYSTEM AST 15 14 - 36 IU/L INTERFACE SYSTEM ALT 5(L) 9 - 52 IU/L INTERFACE SYSTEM BILIRUBIN TOTAL 0.5 0.2 - 1.4 mg/dL INTERFACE SYSTEM GLOBULIN (CALC) 3.6 2.4 - 3.9 g/dL INTERFACE SYSTEM ANION GAP 9 9 - 20 mEq/L INTERFACE SYSTEM ALBUMIN/GLOBULIN RATIO 0.9(L) 1.0 - 2.3 INTERFACE SYSTEM OSMOLALITY, CALCULATED 280 275 - 295 mOsm/Kg INTERFACE SYSTEM 08/18/2004 5:06 AM OFFICE RECEPTIONIST us Brandon Trejo MD CHEMISTRY ORDERABLES Final R esult INTERFACE SYSTEM Refer to clinic/hospital department * (ABNORMAL) CBC WITH DIFFERENTIAL (08/18/2004 5:06 AM OFFICE RECEPTIONIST) Pathologist [facility] WBC 7.6 4.5 - 11.0 K/ul INTERFACE SYSTEM RBC 3.79(L) 4.20 - 5.40 Mil/ul INTERFACE SYSTEM HEMOGLOBIN 11.8(L) 12.0 - 16.0 g/dL INTERFACE SYSTEM HEMATOCRIT 36.2 36.0 - 46.0 % INTERFACE SYSTEM MCV 95.5 84.0 - 103.0 Fl INTERFACE SYSTEM MCH 31.1 27.0 - 34.0 pg INTERFACE SYSTEM MCHC 32.6 30.0 - 35.0 g/dL INTERFACE SYSTEM RDW 12.5 11.0 - 14.5 percent(in active) INTERFACE SYSTEM PLATELETS 224 140 - 440 K/ul INTERFACE SYSTEM MPV 10.9 8.9 - 12.8 Fl INTERFACE SYSTEM NEUTROPHILS 67.1 42.2 - 75.2 percent(in active) INTERFACE SYSTEM LYMPHOCYTES 25.3 24.0 - 44.0 percent(in active) INTERFACE SYSTEM MONOCYTES 6.0 2.0 - 10.0 percent(in active) INTERFACE SYSTEM EOSINOPHILS 1.2 0.0 - 7.0 % INTERFACE SYSTEM BASOPHILS 0.4 0.0 - 1.0 percent(in active) INTERFACE SYSTEM NEUTROPHIL ABSOLUTE 5.1 2.0 - 8.0 K/uL INTERFACE SYSTEM LYMPHOCYTE ABSOLUTE 1.9 1.2 - 4.0 K/ul INTERFACE SYSTEM MONOCYTE ABSOLUTE 0.5 0.1 - 0.6 K/ul INTERFACE SYSTEM EOSINOPHIL ABSOLUTE 0.1 0.0 - 0.7 K/ul INTERFACE SYSTEM BASOPHILS ABSOLUTE 0.0 0.0 - 0.2 K/ul INTERFACE SYSTEM 08/18/2004 5:06 AM OFFICE RECEPTIONIST Brandon Trejo MD HEMATOLOGY ORDERABLES Final Result Performing Organization Address City/[facility] Co de Phone Number INTERFACE SYSTEM Refer to clinic/hospital department * CLOSTRIDIUM DIFFICILE TOXIN (08/17/2004 2:15 PM OFFICE RECEPTIONIST) C DIFFICILE TOXIN Negative Negative INTERFACE SYSTEM 08/17/2004 2:15 PM OFFICE RECEPTIONIST Brandon Trejo MD MICROBIOLOGY - GENERAL ORDER ALFA Final Result INTERFACE SYSTEM Refer to clinic/hospital department * (ABNORMAL) URINALYSIS (08/16/2004 10:20 PM OFFICE RECEPTIONIST) COLOR UA Yellow Straw INTERFACE SYSTEM CLARITY UA Clear Clear INTERFACE SYSTEM LEUKOCYTE ESTERASE UA NEGATIVE NEGATIVE INTERFACE SYSTEM NITRITE UA NEGATIVE NEGATIVE INTERFACE SYSTEM PH UA 6.0 5.0 - 9.0 INTERFACE SYSTEM PROTEIN UA NEGATIVE NEGATIVE INTERFACE SYSTEM GLUCOSE UA NEGATIVE NEGATIVE INTERFACE SYSTEM KETONES UA NEGATIVE NEGATIVE INTERFACE SYSTEM UROBILINOGEN UA 0.2 INTE RFACE SYSTEM BILIRUBIN UA NEGATIVE NEGATIVE INTERFA CE SYSTEM BLOOD UA NEGATIVE NEGATIVE INTERFACE SYSTEM SPECIFIC GRAVITY UA <=1.005(A) 1.005 - 1.030 INTERFACE SYSTEM MICRO EXAM Yes(A) No INTERFACE SYSTEM 08/16/2004 10:2 0 PM OFFICE RECEPTIONIST Brandon Trejo MD URINE ORDERABLES Final Resul t Performing Organization Address City/[facility] de Phone Number INTERFACE SYSTEM Refer to clinic/hospital department * URINALYSIS MICROSCOPY ONLY (08/16/2004 10:20 PM OFFICE RECEPTIONIST) WBC URINE None Seen 0 - 2 INTERFACE SYSTEM RBC UA None Seen 0 - 2 INTERFACE SYSTEM HYALINE CAST None Seen 0 - 2 INTERFA CE SYSTEM 08/16/2004 10:2 0 PM OFFICE RECEPTIONIST Brandon Trejo MD URINE ORDERABLES Final Resul t Performing Organization Address [facility] de Phone Number INTERFACE SYSTEM Refer to clinic/hospital department * (ABNORMAL) COMPREHENSIVE METABOLIC PANEL (08/16/2004 1:30 PM OFFICE RECEPTIONIST) GLUCOSE 81 70 - 110 mg/dL INTERFACE SYSTEM BUN 12 7 - 17 mg/dL INTERFACE SYSTEM CREATININE 1.0 0.7 - 1.2 mg/dL (inactive) INTERFACE SYSTEM SODIUM 141 136 - 145 mEq/L INTERFACE SYSTEM POTASSIUM 3.9 3.5 - 5.0 mEq/L INTERFACE SYSTEM CO2 26 22 - 32 mmol/l INTERFACE SYSTEM CHLORIDE 106 95 - 110 mEq/L INTERFACE SYSTEM CALCIUM 9.2 8.4 - 10.5 mg/dL INTERFACE SYSTEM ALKALINE PHOSPHATASE 47 38 - 126 IU/L INTERFACE SYSTEM TOTAL PROTEIN 8.3(H) 6.3 - 8.2 g/dL INTERFACE SYSTEM ALBUMIN 4.2 3.5 - 5.0 g/dL INTERFACE SYSTEM AST 18 14 - 36 IU/L INTERFACE SYSTEM ALT 14 9 - 52 IU/L INTERFACE SYSTEM BILIRUBIN TOTAL 0.6 0.2 - 1.4 mg/dL INTERFACE SYSTEM GLOBULIN (CALC) 4.1(H) 2.4 - 3.9 g/dL INTERFACE SYSTEM ANION GAP 13 9 - 20 mEq/L INTERFACE SYSTEM ALBUMIN/GLOBULIN RATIO 1.0 1.0 - 2.3 INTERFACE SYSTEM OSMOLALITY, CALCULATED 288 275 - 295 mOsm/Kg INTERFACE SYSTEM 08/16/2004 1:30 PM OFFICE RECEPTIONIST Joseph Rehman MD CHEMISTRY ORDERABLES Final R esult Performing Organization Address [facility] Phone Number INTERFACE SYSTEM Refer to clinic/hospital department * (ABNORMAL) DIFFERENTIAL, MANUAL (08/16/2004 1:30 PM OFFICE RECEPTIONIST) NEUTROPHILS, SEG 52 36 - 66 % INT ERFACE SYSTEM BANDS 1 0 - 6 percent(victoria ctive) INTERFACE SYSTEM LYMPHOCYTES 35 24 - 44 percent(victoria ctive) INTERFACE SYSTEM ATYPICAL LYMPHOCYTE 6(H) <=0 % INTERFACE SYSTEM Comment:FEW REACTIVE MONOCYTE 2(L) 4 - 10 percent(victoria ctive) INTERFACE SYSTEM EOSINOPHILS 4(H) 0 - 3 % INTERFAC E SYSTEM PLATELET EST. Normal Normal INTERF DUSTY SYSTEM RBC MORPHOLOGY Normal Normal INTER FACE SYSTEM 08/16/2004 1:30 PM OFFICE RECEPTIONIST Joseph Rehman MD HEMATOLOGY ORDERABLES COM Fi nal Result Performing Organization Address [facility] Phone Number INTERFACE SYSTEM Refer to clinic/hospital department * (ABNORMAL) CBC WITH DIFFERENTIAL (08/16/2004 1:30 PM OFFICE RECEPTIONIST) WBC 6.4 4.5 - 11.0 K/ul INTERFACE SYSTEM RBC 4.07(L) 4.20 - 5.40 Mil/ul INTERFACE SYSTEM HEMOGLOBIN 12.9 12.0 - 16.0 g/dL INTERFACE SYSTEM HEMATOCRIT 38.4 36.0 - 46.0 % INTERFACE SYSTEM MCV 94.3 84.0 - 103.0 Fl INTERFACE SYSTEM MCH 31.7 27.0 - 34.0 pg INTERFACE SYSTEM MCHC 33.6 30.0 - 35.0 g/dL INTERFACE SYSTEM RDW 12.3 11.0 - 14.5 percent(i nactive) INTERFACE SYSTEM PLATELETS 248 140 - 440 K/ul INTERFACE SYSTEM MPV 10.9 8.9 - 12.8 Fl INTERFACE SYSTEM NEUTROPHILS 55.1 42.2 - 75.2 percent(i nactive) INTERFACE SYSTEM LYMPHOCYTES 37.7 24.0 - 44.0 percent(i nactive) INTERFACE SYSTEM MONOCYTES 5.1 2.0 - 10.0 percent(i nactive) INTERFACE SYSTEM EOSINOPHILS 1.6 0.0 - 7.0 % INTERFACE SYSTEM BASOPHILS 0.5 0.0 - 1.0 percent(i nactive) INTERFACE SYSTEM NEUTROPHIL ABSOLUTE 3.6 2.0 - 8.0 K/uL INTERFACE SYSTEM LYMPHOCYTE ABSOLUTE 2.4 1.2 - 4.0 K/ul INTERFACE SYSTEM MONOCYTE ABSOLUTE 0.3 0.1 - 0.6 K/ul INTERFACE SYSTEM EOSINOPHIL ABSOLUTE 0.1 0.0 - 0.7 K/ul INTERFACE SYSTEM BASOPHILS ABSOLUTE 0.0 0.0 - 0.2 K/ul INTERFACE SYSTEM PERIPHERAL BLOOD SMEAR REVIEW Automated Diff INTERFACE SYSTEM 08/16/2004 1:30 PM OFFICE RECEPTIONIST us Joseph Rehman MD HEMATOLOGY ORDERABLES Final Result Performing Organization Address City/State/[facility] Co de Phone Number INTERFACE SYSTEM Refer to clinic/hospital department documented in this encounter Visit Diagnoses Diagnosis Intestinal infection due to other organism, not elsewhere classified- Primary documented in this encounter Care Teams Axle Bearing Polisher Relationship Specialty Start Date End Date Landry Villarreal MD [address] [place] [address] PCP - General Family Practice 03/11/17 documented as of this encounter
--- OUTSIDE RECORDS SUMMARY | 2025-01-18 18:01 | XMS_ITS | Encounter Summary ---
Author Organization [facility] Address [address] [place] [address] Care Team Providers Care Traffic Signal Mechanic Name Role Phone Landry Villarreal MD Primary Care Provider [phone] Encounter Details Date Type Department Care Team (Latest Contact Info) Description 08/16/2004 Outpatient Historical [facility] Medicine [address] [address] Joseph Rehman MD [address] [place] [phone] ABDOMINAL PAIN RUQ (Primary Dx) Social History Tobacco Use Types Packs/Day Years Used Date Smoking Tobacco: Never Assessed Comments Unknown Sex and Gender Information Value Date Recorded Sex Assigned at Not on file Legal 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
--- OUTSIDE RECORDS SUMMARY | 2025-01-18 18:01 | XMS_ITS | Encounter Summary ---
Author Organization [facility] Address [address] [place] [address] Care Team Providers Care Design Project Manager Name Role Phone Landry Villarreal MD Primary Care Provider [phone] Encounter Details Date Type Department Care Team (Latest Contact Info) Description 12/14/2003 Outpatient Historical [facility] OBGYN-[place] [address] [place] [address] José Luis Castro MD [address] [facility] [address] [place] [address] ENDOMETRIOSIS NOS (Primary Dx) Social History Tobacco Use Types Packs/Day Years Used Date Smoking Tobacco: Never Assessed Comments Unknown Sex and Gender Information Value Date Recorded Sex Assigned at Not on file Legal 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
--- OUTSIDE RECORDS SUMMARY | 2025-01-18 18:01 | XMS_ITS | Encounter Summary ---
Author Organization [facility] Address [address] [facility] [address] 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
--- OUTSIDE RECORDS SUMMARY | 2025-01-18 18:01 | XMS_ITS | Encounter Summary ---
Author Organization [facility] Address [address] [place] [address] Care Team Providers Care Young Adult Librarian Name Role Phone Landry Villarreal MD Primary Care Provider [phone] Encounter Details Date Type Department Care Team (Latest Contact Info) Description 01/15/2005 Outpatient Historical [facility] OBGYN-[place] [address] [place] [address] José Luis Castro MD [address] 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 (Primary Dx) Social History Tobacco Use Types Packs/Day Years Used Date Smoking Tobacco: Never Assessed Comments Unknown Sex and Gender Information Value Date Recorded Sex Assigned at Not on file Legal Sex Female 5:33 AM VISUAL AID EXPERT Gender Identity Not on file Sexual Orientation Not on file documented as of this encounter Plan of Treatment Not on file documented as of this encounter Visit Diagnoses Diagnosis Routine gynecological examination- Primary documented in this encounter Care Teams Young Adult Librarian Relationship Specialty Start Date End Date Landry Villarreal MD [address] [place] [address] PCP - General Family Practice 03/11/17 documented as of this encounter
--- OUTSIDE RECORDS SUMMARY | 2025-01-18 18:01 | XMS_ITS | Encounter Summary ---
Author Organization [facility] Address [address] [place] [address] Care Team Providers Care Road Conductor Name Role Phone Landry Villarreal MD Primary Care Provider [phone] Encounter Details Date Type Department Care Team (Latest Contact Info) Description 08/03/2006 Outpatient Historical [facility] Imaging Services-[facility] [place] [place] [address] [place] [address] Gwen Christian MD [facility] [place], [place] [address] Other and Unspecified Ovarian Cyst (Primary Dx); Abdominal Pain, Right Lower Quadrant Social History Tobacco Use Types Packs/Day Years Used Date Smoking Tobacco: Never Assessed Comments Unknown Sex and Gender Information Value Date Recorded Sex Assigned at Not on file Legal 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 Female 5:33 AM 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 Ultrasound of the pelvis was performed. Uterus measures 9.2 cm in length x 4.5 cm in AP dimension x 5.9 cm in transverse dimension. Endometrium measures 3 mm. No free fluid is identified. The right ovary measures 4.8 x 3.6 x 4.6 cm and contains a cyst that measures 3.4 x 3.3 x 3.6 cm. The left ovary measures 3.4 x 2.1 x 1.8 cm and shows no significant abnormality. IMPRESSION: Small right ovarian simple cyst. ama / Dictated By: Addi Hein M.D. Electronically Signed By: Addi Hein M.D. Date Signed: 08/07/06 AMA Procedure Note 04/27/2009 ULTRASOUND - PELVIS, 08/03/06 HISTORY: Right lower quadrant pain. Ultrasound of the pelvis was performed. Uterus measures 9.2 cm in lengthx 4.5 cm in AP dimension x 5.9 cm in transverse dimension. Endometrium measures 3 mm. No free fluid isidentified. The right ovary measures 4.8 x 3.6 x 4.6 cm and contains a cyst thatmeasures 3.4 x 3.3 x 3.6 cm. The left ovary measures 3.4 x 2.1 x 1.8 cm and shows no significantabnormality. IMPRESSION: Small right ovarian simple cyst. ama / Dictated By: Addi Hein M.D. Electronically Signed By: Addi Hein M.D. Date Signed: 08/07/06 AMA us E Rule Youssef US ORDERABLES Final Result documented in this encounter Visit Diagnoses Diagnosis Other and unspecified ovarian cyst- Primary Abdominal pain, right lower quadrant documented in this encounter Care Teams Road Conductor Relationship Specialty Start Date End Date Landry Villarreal MD [address] [place] [address] PCP - General Family Practice 03/11/17 documented as of this encounter
--- OUTSIDE RECORDS SUMMARY | 2025-01-18 18:01 | XMS_ITS | Encounter Summary ---
Author Organization [facility] Address [address] [place] [address] Care Team Providers Care Package Pick Up Name Role Phone Landry Villarreal MD Primary Care Provider [phone] Encounter Details Date Type Department Care Team (Latest Contact Info) Description 03/29/2007 Outpatient Historical [facility] [id number] [place] [address] Brandon Christian MD [address] [place] [address] Screening for Unspecified Condition (Primary Dx) Social History Tobacco Use Types Packs/Day Years Used Date Smoking Tobacco: Never Assessed Comments Unknown Sex and Gender Information Value Date Recorded Sex Assigned at Not on file Legal Sex Female 5:33 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
--- OUTSIDE RECORDS SUMMARY | 2025-01-18 18:01 | XMS_ITS | Encounter Summary ---
Author Organization [facility] Address [address] [place] [address] Care Team Providers Care Internal Grinder Name Role Phone Landry Villarreal MD Primary Care Provider [phone] Encounter Details Date Type Department Care Team (Latest Contact Info) Description 03/08/2007 Outpatient Historical [facility] OBGYN-[place] [address] [place] [address] José Luis Castro MD [address] [facility] [address] [place] [address] Routine Gynecological Examination (Primary Dx) Social History Tobacco Use Types Packs/Day Years Used Date Smoking Tobacco: Never Assessed Comments Unknown Sex and Gender Information Value Date Recorded Sex Assigned at Not on file Legal Sex Female 5:33 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
--- OUTSIDE RECORDS SUMMARY | 2025-01-18 18:01 | XMS_ITS | Encounter Summary ---
Author Organization [facility] Address [address] [place] [address] Care Team Providers Care Integrated Circuit Ic Layout Designer Name Role Phone Landry Villarreal MD Primary Care Provider [phone] Encounter Details Date Type Department Care Team (Late st Contact Info) Description 08/03/2007 Emergency [facility] Emergency Department [address] [place] [id number] Ed, Physician NO ADDRESS ON FILE Chetan Benoit MD NO ADDRESS ON FILE Abdominal Pain, Right Lower Quadrant; Personal History of Allergy to Narcotic Agent; Personal History of Allergy to Other Specified Medicinal Agents Social History Tobacco Use Types Packs/Day Years Used Date Smoking Tobacco: Never Assessed Comments Unknown Sex and Gender Information Value Date Recorded Sex Assigned at Not on file Legal Sex Female 5:33 AM CURER ACID DRUM Gender Identity Not on file Sexual Orientation Not on file documented as of this encounter Plan of Treatment Not on file documented as of this encounter Procedures Procedure Name Priority Date/Time Associated Diagnosis Comments CT ABDOMEN PELVIS W CONTRAST Routine 08/04/2007 1:31 AM CURER ACID DRUM CBC WITH DIFFERENTIAL Stat 08/04/2007 12:01 AM CURER ACID DRUM URINALYSIS W/REFLEX MICROSCOPIC Stat 08/04/2007 12:01 AM CURER ACID DRUM BASIC METABOLIC PANEL Stat 08/04/2007 12:01 AM CURER ACID DRUM US PELVIC TRANSVAGINAL Routine 08/03/2007 11:52 PM CURER ACID DRUM US ABD PELV ART VEIN LTD Routine 08/03/2007 3:49 PM CURER ACID DRUM US APPENDIX Routine 08/03/2007 3:49 PM CURER ACID DRUM documented in this encounter Results * CT ABDOMEN PELVIS W CONTRAST (08/04/2007 1:31 AM CURER ACID DRUM) Anatomical Region Laterality Modality Abdomen Other 08/04/2007 1:31 AM CURER ACID DRUM Narrative 08/04/2007 2:[address] Scan Abdomen and Pelvis with contrast 08/04/2007: History: Abdominal pain. Vomiting. Procedure: A routine CT scan of the Abdomen and Pelvis for appendicitis was obtained with oral contrast, rectal contrast, and 100 mL of Optiray-240 IV contrast.. Findings: 1. The base of the appendix is identified. The entire appendix could not be definitely identified. What is identified is normal and there is no visible appendicitis. The distal small bowel is not opacified by GI contrast. It appears normal. 2. The uterus is present. The ovaries are not enlarged. There is no definite free fluid. Lung bases are clear. The liver, spleen, pancreas, and adrenals are normal in appearance. There is no free air or lymphadenopathy. The colon appears normal. The small bowel is not distended. There is no small bowel malrotation. The stomach appears normal. 3. There has been a previous cholecystectomy. Common bile duct is distended, approximately 8 mm. It tapers in the head of pancreas without visible calcification or pancreatic mass. There is very minimal intrahepatic biliary duct dilatation. The previous scan, 08/16/2004, was obtained prior to the cholecystectomy. 4. 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 Impression: No evidence of appendicitis. Previous cholecystectomy. Dilated common bile duct and very minimal intrahepatic biliary duct dilatation. This is probably still within normal limits for a patient with previous cholecystectomy. The previous scan, 08/16/2004, was obtained prior to the cholecystectomy. Left-sided L5 spondylolysis without spondylolisthesis. - Procedure Note Ines Murcia - 08/05/2007 CT Scan Abdomen and Pelvis with contrast 08/04/2007: History: Abdominal pain. Vomiting. Procedure: A routine CT scan of the Abdomen and Pelvis for appendicitiswas obtained with oral contrast, rectal contrast, and 100 mL of Optiray-240 IV contrast.. Findings: 1. The base of the appendix is identified. The entire appendix could notbe definitely identified. What is identified is normal and there is no visible appendicitis. The distalsmall bowel is not opacified by GI contrast. It appears normal. 2. The uterus is present. The ovaries are not enlarged. There is nodefinite free fluid. Lung bases are clear. The liver, spleen, pancreas, and adrenals are normal in appearance.There is no free air or lymphadenopathy. The colon appears normal. The small bowel is notdistended. There is no small bowel malrotation. The stomach appears normal. 3. There has been a previous cholecystectomy. Common bile duct isdistended, approximately 8 mm. It tapers in the head of pancreas without visible calcification or pancreaticmass. There is very minimal intrahepatic biliary duct dilatation. The previous scan,08/16/2004, was obtained prior to the cholecystectomy. 4. 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 Impression: No evidence of appendicitis. Previous cholecystectomy. Dilatedcommon bile duct and very minimal intrahepatic biliary duct dilatation. This is probably stillwithin normal limits for a patient with previous cholecystectomy. The previous scan, 08/16/2004, wasobtained prior to the cholecystectomy. Left-sided L5 spondylolysis without spondylolisthesis. - us Chetan Benoit MD CT ORDERABLES Final Resu lt * (ABNORMAL) CBC WITH DIFFERENTIAL (08/04/2007 12:01 AM CURER ACID DRUM) HEMATOCRIT 38.7 36.0 - 46.0 % [facility] PLATELETS 241 140 - 440 K/ul [facility] EOSINOPHIL ABSOLUTE 0.2 0.0 - 0.7 K/ul [facility] EOSINOPHILS 2.8 0.0 - 7.0 % [facility] RBC 4.29 4.20 - 5.40 Mil/ul [facility] MCHC 34.9 30.0 - 35.0 g/dL [facility] LYMPHOCYTE ABSOLUTE 3.0 1.2 - 4.0 K/ul [facility] LYMPHOCYTES 49.6(H) 24.0 - 44.0 % [facility] MCV 90.2 84.0 - 103.0 Fl [facility] BASOPHILS 0.7 0.0 - 1.0 % [facility] MPV 10.9 8.9 - 12.8 Fl [facility] BASOPHILS ABSOLUTE 0.0 0.0 - 0.2 K/ul [facility] HEMOGLOBIN 13.5 12.0 - 16.0 g/dL [facility] MONOCYTES 7.8 2.0 - 10.0 % [facility] RDW 12.5 11.0 - 14.5 % [facility] MONOCYTE ABSOLUTE 0.5 0.1 - 0.6 K/ul [facility] WBC 6.0 4.5 - 11.0 K/ul [facility] NEUTROPHILS 39.1(L) 42.2 - 75.2 % [facility] MCH 31.5 27.0 - 34.0 pg [facility] NEUTROPHIL ABSOLUTE 2.3 2.0 - 8.0 K/ul [facility] Blood specimen (specimen) 08/04/2007 12:01 AM CURER ACID DRUM 08/04/2007 12:06 AM CURER ACID DRUM us Chetan Benoit MD HEMATOLOGY ORDERABLES Liane flores Result Performing Organization Address City/State/[facility] Co de Phone Number [facility] [address] [place] [address] * URINALYSIS (08/04/2007 12:01 AM CURER ACID DRUM) NITRITE UA NEGATIVE NEGATIVE [facility] UROBILINOGEN UA 0.2 0.2 [facility] CLARITY UA Clear Clear [facility] SPECIFIC GRAVITY UA 1.025 <=1.005 [facility] GLUCOSE UA NEGATIVE NEGATIVE [facility] PH UA 5.5 5.0 - 9.0 [facility] BILIRUBIN UA NEGATIVE NEGATIVE [facility] LEUKOCYTE ESTERASE UA NEGATIVE NEGATIVE [facility] KETONES UA NEGATIVE NEGATIVE [facility] MICRO EXAM No No [facility] COLOR UA Yellow Straw [facility] PROTEIN UA NEGATIVE NEGATIVE [facility] BLOOD UA NEGATIVE NEGATIVE [facility] Urine, clean catch 08/04/2007 12:01 AM CURER ACID DRUM 08/04/2007 12:06 AM CURER ACID DRUM Chetan Benoit MD URINE ORDERABLES Final Res ult Performing Organization Address [facility] Co de Phone Number [facility] [address] [place] [address] * BASIC METABOLIC PANEL (08/04/2007 12:01 AM CURER ACID DRUM) SODIUM 141 136 - 145 mEq/L [facility] ANION GAP 12 9 - 20 mEq/L [facility] BUN 16 7 - 17 mg/dL [facility] CO2 26 22 - 32 mmol/l [facility] OSMOLALITY, CALCULATED 289 275 - 295 mOsm/Kg [facility] POTASSIUM 3.5 3.5 - 5.0 mEq/L [facility] CREATININE 0.7 0.7 - 1.2 mg/dL [facility] CALCIUM 10.1 8.4 - 10.5 mg/dL [facility] GLUCOSE 88 70 - 110 mg/dL [facility] CHLORIDE 107 95 - 110 mEq/L [facility] Blood specimen (specimen) 08/04/2007 12:01 AM CURER ACID DRUM 08/04/2007 12:06 AM CURER ACID DRUM Chetan Benoit MD CHEMISTRY ORDERABLES Final Result Performing Organization Address [facility] Co de Phone Number [facility] [address] [place] [address] * US PELVIC TRANSVAGINAL (08/03/2007 11:52 PM CURER ACID DRUM) Anatomical Region Laterality Modality Pelvis Other 08/03/2007 11:5 2 PM CURER ACID DRUM Narrative 08/04/2007 1:38 AM CURER ACID DRUM Transvaginal ultrasound. Ovarian Doppler. Ultrasound of the appendix. 08/03/2007. History: Right lower quadrant pain. Abdominal pain. Vomiting. The appendix could not be identified and therefore cannot be evaluated. Uterus is 3.6 x 5.0 x 8.2 cm in AP, transverse, and longitudinal dimensions. The endometrium is 3 mm thick. The uterus is normal in appearance. There is a minimal amount (less than 3 ml) of free fluid within the cul-de-sac. The right ovary is 2.4 x 2.8 x 2.9 cm and has several probably follicular cysts. The largest is approximately 1 cm in diameter. There is demonstrable arterial blood flow. The left ovary is 1.9 x 2.8 x 2.9 cm in diameter. It also has multiple probably follicular cysts. The largest is approximately 1 cm in diameter. There is demonstrable arterial blood flow. Impression: The appendix could not be identified and therefore cannot be evaluated. Normal uterus. Less than 3 mL of free fluid within the cul-de-sac. Follicular cysts within the bilateral ovaries. Normal bilateral ovarian Doppler. - Procedure Note Ines Murcia R - 08/05/2007 Transvaginal ultrasound. Ovarian Doppler. Ultrasound of the appendix. 08/03/2007. History: Right lower quadrant pain. Abdominal pain. Vomiting. The appendix could not be identified and therefore cannot be evaluated. Uterus is 3.6 x 5.0 x 8.2 cm in AP, transverse, and longitudinaldimensions. The endometrium is 3 mm thick. The uterus is normal in appearance. There is a minimal amount (less than 3 ml) of free fluid within [id number]. The right ovary is 2.4 x 2.8 x 2.9 cm and has several probably follicularcysts. The largest is approximately 1 cm in diameter. There is demonstrable arterial bloodflow. The left ovary is 1.9 x 2.8 x 2.9 cm in diameter. It also has multipleprobably follicular cysts. The largest is approximately 1 cm in diameter. There is demonstrable arterialblood flow. Impression: The appendix could not be identified and therefore cannot beevaluated. Normal uterus. Less than 3 mL of free fluid within the cul-de-sac. Follicular cystswithin the bilateral ovaries. Normal bilateral ovarian Doppler. - us Chetan Benoit MD US ORDERABLES Final Resu lt * US ABD PELV SCROTAL ART VEIN LTD (08/03/2007 3:49 PM CURER ACID DRUM) Anatomical Region Laterality Modality Abdomen Other 08/03/2007 3:49 PM CURER ACID DRUM Narrative 08/14/2008 5:16 AM CDT Transvaginal ultrasound. Ovarian Doppler. Ultrasound of the appendix. 08/03/2007. History: Right lower quadrant pain. Abdominal pain. Vomiting. The appendix could not be identified and therefore cannot be evaluated. Uterus is 3.6 x 5.0 x 8.2 cm in AP, transverse, and longitudinal dimensions. The endometrium is 3 mmthick. The uterus is normal in appearance. There is a minimal amount (less than 3 ml) of free fluid within the cul-de-sac. The right ovary is 2.4 x 2.8 x 2.9 cm and has several probably follicular cysts. The largest isapproximately 1 cm in diameter. There is demonstrable arterial blood flow. The left ovary is 1.9 x 2.8 x 2.9 cm in diameter. It also has multiple probably follicular cysts. Thelargest is approximately 1 cm in diameter. There is demonstrable arterial blood flow. Impression: The appendix could not be identified and therefore cannot be evaluated. Normal uterus. Less than 3 mL of free fluid within the cul-de-sac. Follicular cysts within the bilateral ovaries. Normal bilateral ovarian Doppler. - Dictated By: Ines Murcia M.D. Electronically Signed By: Ines Murcia M.D. Date Signed: 08/04/07 Procedure Note Provider, Historical - 08/23/2008 Transvaginal ultrasound. Ovarian Doppler. Ultrasound of the appendix. 08/03/2007. History: Right lower quadrant pain. Abdominal pain. Vomiting. The appendix could not be identified and therefore cannot be evaluated. Uterus is 3.6 x 5.0 x 8.2 cm in AP, transverse, and longitudinaldimensions. The endometrium is 3 mmthick. The uterus is normal in appearance. There is a minimal amount (less than 3 ml) of free fluid within [id number]. The right ovary is 2.4 x 2.8 x 2.9 cm and has several probably follicularcysts. The largest isapproximately 1 cm in diameter. There is demonstrable arterial bloodflow. The left ovary is 1.9 x 2.8 x 2.9 cm in diameter. It also has multipleprobably follicular cysts. Thelargest is approximately 1 cm in diameter. There is demonstrablearterial blood flow. Impression: The appendix could not be identified and therefore cannot be evaluated.Normal uterus. Less than 3 mL of free fluid within the cul-de-sac. Follicular cystswithin the bilateral ovaries. Normal bilateral ovarian Doppler. - Dictated By: Ines Murcia M.D. Electronically Signed By: Ines Murcia M.D. Date Signed: 08/04/07 us Chetan Benoit MD US ORDERABLES Final Resu lt * US APPENDIX (08/03/2007 3:49 PM CURER ACID DRUM) Anatomical Region Laterality Modality Abdomen Other 08/03/2007 3:49 PM CURER ACID DRUM Narrative 08/09/2008 3:48 AM CURER ACID DRUM Transvaginal ultrasound. Ovarian Doppler. Ultrasound of the appendix. 08/03/2007. History: Right lower quadrant pain. Abdominal pain. Vomiting. The appendix could not be identified and therefore cannot be evaluated. Uterus is 3.6 x 5.0 x 8.2 cm in AP, transverse, and longitudinal dimensions. The endometrium is 3 mmthick. The uterus is normal in appearance. There is a minimal amount (less than 3 ml) of free fluid within the cul-de-sac. The right ovary is 2.4 x 2.8 x 2.9 cm and has several probably follicular cysts. The largest isapproximately 1 cm in diameter. There is demonstrable arterial blood flow. The left ovary is 1.9 x 2.8 x 2.9 cm in diameter. It also has multiple probably follicular cysts. Thelargest is approximately 1 cm in diameter. There is demonstrable arterial blood flow. Impression: The appendix could not be identified and therefore cannot be evaluated. Normal uterus. Less than 3 mL of free fluid within the cul-de-sac. Follicular cysts within the bilateral ovaries. Normal bilateral ovarian Doppler. - Dictated By: Ines Murcia M.D. Electronically Signed By: Ines Murcia M.D. Date Signed: 08/04/07 Procedure Note Provider, Historical - 08/10/2008 Transvaginal ultrasound. Ovarian Doppler. Ultrasound of the appendix. 08/03/2007. History: Right lower quadrant pain. Abdominal pain. Vomiting. The appendix could not be identified and therefore cannot be evaluated. Uterus is 3.6 x 5.0 x 8.2 cm in AP, transverse, and longitudinaldimensions. The endometrium is 3 mmthick. The uterus is normal in appearance. There is a minimal amount (less than 3 ml) of free fluid within [id number]. The right ovary is 2.4 x 2.8 x 2.9 cm and has several probably follicularcysts. The largest isapproximately 1 cm in diameter. There is demonstrable arterial bloodflow. The left ovary is 1.9 x 2.8 x 2.9 cm in diameter. It also has multipleprobably follicular cysts. Thelargest is approximately 1 cm in diameter. There is demonstrablearterial blood flow. Impression: The appendix could not be identified and therefore cannot be evaluated.Normal uterus. Less than 3 mL of free fluid within the cul-de-sac. Follicular cystswithin the bilateral ovaries. Normal bilateral ovarian Doppler. - Dictated By: Ines Murcia M.D. Electronically Signed By: Inse Murcia M.D. Date Signed: 08/04/07 Chetan Benoit MD ORDERABLES Final Resu lt documented in this encounter Visit Diagnoses Diagnosis Abdominal pain, right lower quadrant Personal history of allergy to narcotic agent Personal history of allergy to other specified medicinal agents documented in this encounter Care Teams Integrated Circuit Ic Layout Designer Relationship Specialty Start Date End Date Landry Villarreal MD [address] [place] [address] PCP - General Family Practice 03/11/17 documented as of this encounter
--- OUTSIDE RECORDS SUMMARY | 2025-01-18 18:01 | XMS_ITS | Encounter Summary ---
Author Organization [facility] Address [address] [place] [address] Care Team Providers Care Clothes Drier Assembler Name Role Phone Landry Villarreal MD Primary Care Provider Encounter Details Date Type Department Care Team (Latest Contact Info) Description 08/14/2006 Outpatient Historical [facility] [address] [phone] Gwen Christian MD [address] [place], [place] [id number] Abdominal Pain, Right Lower Quadrant (Primary Dx); Irregular Menstruation Social History Tobacco Use Types Packs/Day Years Used Date Smoking Tobacco: Never Assessed Comments Unknown Sex and Gender Information Value Date Recorded Sex Assigned at Not on file Legal Sex Female 5:33 AM PSYCH NP Gender Identity Not on file Sexual Orientation Not on file documented as of this encounter Plan of Treatment Not on file documented as of this encounter Visit Diagnoses Diagnosis Abdominal pain, right lower quadrant- Primary Irregular menstruation Irregular menstrual cycle documented in this encounter Care Teams Clothes Drier Assembler Relationship Specialty Start Date End Date Landry Villarreal MD [address] [place] [address] PCP - General Family Practice 03/11/17 documented as of this encounter
--- OUTSIDE RECORDS SUMMARY | 2025-01-18 18:01 | XMS_ITS | Encounter Summary ---
Author Organization [facility] Address [address] [place] [address] Care Team Providers Care Signal Inspector Name Role Phone Landry Villarreal MD Primary Care Provider [phone] Encounter Details Date Type Department Care Team (Latest Contact Info) Description 09/05/2003 Outpatient Historical [facility] [address] [place] [phone] Louie Henry MD NO ADDRESS ON FILE CHEST PAIN NOS (Primary Dx) Social History Tobacco Use Types Packs/Day Years Used Date Smoking Tobacco: Never Assessed Comments Unknown Sex and Gender Information Value Date Recorded Sex Assigned at Not on file Legal Sex Female 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
--- OUTSIDE RECORDS SUMMARY | 2025-01-18 18:01 | XMS_ITS | Clinical Summary ---
Author Organization [facility] Address [address] [place] [address] Care Team Providers Care Vice President Quality Name Role Phone Landry Villarreal MD Primary Care Provider [phone] Allergies Active Allergy Reactions Criticality Noted Date Comments Avocado Hives High 08/05/2019 Hydrocodone-Acetamin ophen Rash,Itching Low 10/13/2007 Meperidine Hives,Itching,Swelli n g High 10/13/2007 Morphine Shortness of Breath/Wheezing High 10/13/2007 Vancomycin Renal Dysfunctions High 01/23/2020 Pt reports went into kidney failure following Vanc dose on 10-04-2019, for sepsis from injury to R leg - leg drain became infected. Pr resulted in having dialysis from 10-11-2019 through November 2019. Marian Loja, veterinarian assistant with [facility] told pt to never have vanc again. Medications ENSKYCE 0.15-0.03 mg Tablet Take 1 Tablet by mouth daily. 7 Active ALPRAZolam (XANAX) 0.5 mg tablet Take 0.5 mg by mouth 2 times daily as needed for Anxiety. Active ondansetron (ZOFRAN ODT) 4 mg Tablet, Rapid Dissolve Place 1 Tablet (4 mg) under tongue every 8 hours as needed for Nausea/Emesis. Dissolve tablet on top of tongue, then swallow with saliva. 20 Tablet 1 10/17/2019 3:31 PM CDT 0 Active docusate sodium (COLACE) 100 mg capsule Take 1 Capsule (100 mg) by mouth 2 times daily. 0 Active Additional Information Patient taking differently:100 mg OralTWO TIMES DAILY PRN, Reported on 07/17/2020 Lactobac no.41/Bifidobac t no.7 (PROBIOTIC-10 ORAL) Take 1 Capsule by mouth daily. Active amLODIPine (NORVASC) 2.5 mg tablet Take 2.5 mg by mouth daily. 0 Active oxyCODONE-aceta minophen (Percocet) 5-325 mg tabletIndicatio ns:S/P shoulder surgery Take 1 Tablet by mouth every 4 hours as needed for Pain, Moderate. Max Daily Amount: 6 Tablets 42 Tablet 08/06/2020 4:05 PM SLOT ROUTER 1 Active cyclobenzaprine (FLEXERIL) 5 mg Tablet Take 1 Tablet (5 mg) by mouth daily at bedtime. 30 Tablet 08/21/2020 3:52 PM CDT 1 Active Active Problems Problem Noted Date Diagnosed Date ATN (acute tubular necrosis) 10/17/2019 Protein-calorie malnutrition, moderate 0 Cellulitis 10/05/2019 Henry Wolf lesion 09/13/2019 Assessment & Plan (09/13/2019 1:16 PM CDT): Worsening. At this time we will obtain additional imaging to evaluate the extent of the underlying lesion. On exam this feels like a fluid collection. It may represent a liquefying hematoma or simple fluid. It could take months for this fluid to reabsorb naturally. At this time the skin does not appear threatened. Given the amount of discomfort she is having we could potentially drain the fluid collection in interventional radiology. Draining the fluid would of course potentially expose the fluid collection to bacteria present on the skin and increases the likelihood of this becoming infected. Another option for her would be surgical drainage in the operating room. I feel that at this time that would not be warranted as it would likely create a large wound for her to manage. Continue with compression and we will discuss options after obtaining a CAT scan. Sepsis DAVID (acute kidney injury) Resolved Problems Problem Noted Date Diagnosed Date Resolved Date Supervision of other normal 11/15/2007 09/13/2019 Immunizations Immunization Administration Dates Next Due (TDVAX)(7 YRS UP) TETANUS AN D DIPHTHERIA TOXOIDS, ADSORBED (2 LF OF TETANUS TOXOID AND 2 LF OF DIPHTHERIA TOXOID), 0.5ML (PF), IM 11/25/2004 Family History Medical History Relation Name Comments Hemophilia Brother Hemophilia Father Alcohol abuse Maternal Grandfather Breast Cancer Maternal Grandmother Depression Maternal Grandmother Depression Mother Cancer Other aunt cervical and ov deep Depression Other aunt Colon Cancer Paternal Grandfather Heart Failure Paternal Grandmother Relation Name Status Comments Brother Father Maternal Grandfather Maternal Grandmother Mother Other aunt Paternal Grandfather Paternal Grandmother Social History Tobacco Use Types Packs/Day Years Used Date Smoking Tobacco: Never Smokeless Tobacco: Never Tobacco Cessation:Counseling Given: No Alcohol Use Standard Drinks/Week Comments Not Currently 0 (1 standard drink = 0.6 oz pur e alcohol) Comments No Sex and Gender Information Value Date Recorded Sex Assigned at Not on file Legal Sex Female 5:33 AM SLOT ROUTER Gender Identity Not on file Sexual Orientation Not on file Last Filed Vital Signs Vital Sign Reading Time Taken Comments Blood Pressure 117/71 11/06/2020 2:32 PM CDT Pulse 78 11/06/2020 2:32 PM CDT Temperature 36.4 C (97.5 F) 08/06/2020 3:12 PM SLOT ROUTER Respiratory Rate 16 08/06/2020 3:45 PM SLOT ROUTER Oxygen Saturation 100% 08/06/2020 3:45 PM SLOT ROUTER Inhaled Oxygen Concentration - - Weight 84.4 kg (186 lb) 11/06/2020 2:32 PM CDT Height 162.6 cm (5' 4 ) 11/06/2020 2:32 PM CDT Body Mass Index 31.93 11/06/2020 2:32 PM CDT Plan of Treatment Health Maintenance Due Date Last Done Comments HEPATITIS B VACCINES (1 of 3 - 19+ 3-dose series) 1996 HPV/Cotest (21-29) 1998 DTAP/TDAP/TD VACCINES (1 - Tdap) 11/26/2004 11/26/19 05 HPV/Cotest (30-65) 2007 CERVICAL CANCER SCREENING 03/08/2010 PAP SMEAR 03/08/2010 03/08/2007, 07/0 11/2005, 01/15/2005 BREAST CANCER SCREENING 2017 COLORECTAL SCREENING 2022 Colorectal Cancer Screening 2022 FIT-DNA Q 3 years 2022 FIT/FOBT Q 1 year 2022 09/11/2000 Flex Sig/CT Colonography Q 5 years 2022 INFLUENZA VACCINE (#1) 2025 Medical Devices Implanted Type Area Manager Switch Device Identifier Shelf Expiration Date Model / Serial / Lot [place] Suture [id number] Chango-CelluFuel Swivelock-C Dbl #[id number] [id number] - [id number] Implanted:Qty: 1 on 01/23/2020 by Dilip Baarjas III, MD at [facility] Right: Shoulder [employer] [id number] 10/06/2023 [id number]-[id number] C-2 / / [id number] [place] Speedbridge 4.75mm Swivelock [id number] - [id number] Implanted:Qty: 1 on 01/23/2020 by Dilip Barajas III, MD at [facility] Right: Shoulder [employer] [id number] 09/05/2021 AR-[id number] S-9 / / [id number] Resolve Drainage Catheter-2019 Implanted:Qty: 1 on 10/06/2019 by Shai Jerome MD Catheter Right: Leg [id number] 10/05/2021 [facility]-14-03 8MB / / [id number] Cath Dialysis Glidepath 14.5fr 24cm Std [id number]/5/20 Implanted:Qty: 1 on 10/11/2019 by Deepak Lam MD Catheter CR BARD[employer] [id number] 03/07/2021 [id number] / / [id number] Explanted Type Area Manager Switch Device Identifier Shelf Expiration Date Model / Serial / Lot 10f Resolve Drainage Catheter-09/18 Implanted:Qty : 1 on 09/19/2019 by Alessandro Linn MD Explanted:Qty : 1 on 10/06/2019 by Shai Jerome MD Catheter Right: Hip [id number] 04/07/2022 [facility]-10-038 MB / / [id number] Insurance [employer] RX MEDIMPACT Member Subscriber Plan / Payer (Ef fective 2019-Present) Name:Judah Yousuf B Relation to Subscriber:Spouse Name:Yousuf Barrera Subscriber ID:Not on file Payer ID:Not on file Group ID:[id number] Type:RX Commercial Address: [place], [place] [employer] Commercial [employer] Commercial RX MEDIMPACT Member Subscriber Plan / Payer (Ef fective 2019-Present) Name:Yousuf Barrera Relation to Subscriber:Spouse Name:Yousuf Barrera Subscriber ID:Not on file Payer ID:Not on file Group ID:[id number] Type:RX Commercial Address: [place] Advance Directives For more information, please contact: [phone] * Full Code (Latest Code Status on File) Date Activated Date Inactivated Comments 10/04/2019 2:02 PM 10/17/2019 6:41 PM * Full Code Date Activated Date Inactivated Comments 05/29/2017 9:00 AM 05/29/2017 1:12 PM Care Teams Vice President Quality Relationship Specialty Start Date End Date Landry Villarreal MD [address] [place] [address] PCP - General Family Practice 03/11/17
--- OUTSIDE RECORDS SUMMARY | 2025-01-18 18:01 | XMS_ITS | Encounter Summary ---
Author Organization [facility] Address [address] [place] [address] Care Team Providers Care Patron Attendant Name Role Phone Landry Villarreal MD Primary Care Provider [phone] Encounter Details Date Type Department Care Team (Latest Contact Info) Description 03/25/2007 Outpatient Historical [facility] [address] [place] [address] Gwen Christian MD [address] [place] [address] Unspecified Anemia (Primary Dx); Supervision of Other Normal Social History Tobacco Use Types Packs/Day Years Used Date Smoking Tobacco: Never Assessed Comments Unknown Sex and Gender Information Value Date Recorded Sex Assigned at Not on file Legal Sex Female 5:33 AM CUSTOMS INSPECTOR Gender Identity Not on file Sexual Orientation Not on file documented as of this encounter Plan of Treatment Not on file documented as of this encounter Visit Diagnoses Diagnosis Anemia, unspecified- Primary Supervision of other normal documented in this encounter Care Teams Patron Attendant Relationship Specialty Start Date End Date Landry Villarreal MD [address] [place] [address] PCP - General Family Practice 03/11/17 documented as of this encounter
--- OUTSIDE RECORDS SUMMARY | 2025-01-18 18:01 | XMS_ITS | Encounter Summary ---
Author Organization [facility] Address [address] [place] [address] Care Team Providers Care Cubing Machine Tender Name Role Phone Landry Villarreal MD Primary Care Provider [phone] Encounter Details Date Type Department Care Team (Latest Contact Info) Description 09/11/2000 Outpatient Historical [facility] Balwinder [place] NO ADDRESS ON FILE External hemorrhoids without mention of complication (Primary Dx) Social History Tobacco Use Types Packs/Day Years Used Date Smoking Tobacco: Never Assessed Comments Unknown Sex and Gender Information Value Date Recorded Sex Assigned at Not on file Legal Sex Female 5:33 AM SPORTS BOOK SERVER Gender Identity Not on file Sexual Orientation Not on file documented as of this encounter Plan of Treatment Not on file documented as of this encounter Visit Diagnoses Diagnosis External hemorrhoids without mention of complication- Primary documented in this encounter Care Teams Cubing Machine Tender Relationship Specialty Start Date End Date Landry Villarreal MD [address] [place] [address] PCP - General Family Practice 03/11/17 documented as of this encounter
--- OUTSIDE RECORDS SUMMARY | 2025-01-18 18:01 | XMS_ITS | Encounter Summary ---
Author Organization [facility] Address [address] [place] [address] Care Team Providers Care Peanut Butter Maker Name Role Phone Landry Villarreal MD Primary Care Provider [phone] Encounter Details Date Type Department Care Team (Latest Contact Info) Description 09/22/2006 Outpatient Historical [facility] [place] [address] [place] [phone] Shameka Cox, [facility] [address] [phone] Urinary Tract Infection, Site not Specified (Primary Dx); Irregular Menstruation Social History Tobacco Use Types Packs/Day Years Used Date Smoking Tobacco: Never Assessed Comments Unknown Sex and Gender Information Value Date Recorded Sex Assigned at Not on file Legal Sex Female 5:33 AM 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
--- OUTSIDE RECORDS SUMMARY | 2025-01-18 18:01 | XMS_ITS | Encounter Summary ---
Author Organization [facility] Address [address] [place] [address] Care Team Providers Care Toddler Caregiver Name Role Phone Landry Villarreal MD Primary Care Provider [phone] Encounter Details Date Type Department Care Team (Late st Contact Info) Description 12/11/2005 Outpatient [facility] OBGYN-Lee Sanju Willian [address] [place] [address] José Luis Castro MD [address] [facility] [address] [place] [address] Social History Tobacco Use Types Packs/Day Years Used Date Smoking Tobacco: Never Assessed Comments Unknown Sex and Gender Information Value Date Recorded Sex Assigned at Not on file Legal Sex Female 5:33 AM TIMBER SIZER OPERATOR Gender Identity Not on file Sexual Orientation Not on file documented as of this encounter Plan of Treatment Not on file documented as of this encounter Visit Diagnoses Not on filedocumented in this encounter Care Teams Toddler Caregiver Relationship Specialty Start Date End Date Landry Villarreal MD [address] [place] [address] PCP - General Family Practice 03/11/17 documented as of this encounter
--- OUTSIDE RECORDS SUMMARY | 2025-01-18 18:01 | XMS_ITS | Encounter Summary ---
Author Organization [facility] Address [address] [place] [address] Care Team Providers Care It Systems Manager Name Role Phone Landry Villarreal MD Primary Care Provider [phone] Encounter Details Date Type Department Care Team (Latest Contact Info) Description 03/25/2005 Outpatient [facility] [address] [place] [phone] Braulio Machado MD [address] [place] [phone] BURSITIS NEC (Primary Dx) Social History Tobacco Use Types Packs/Day Years Used Date Smoking Tobacco: Never Assessed Comments Unknown Sex and Gender Information Value Date Recorded Sex Assigned at Not on file Legal Sex Female 5:33 AM TRANSMITTER CHIEF Gender Identity Not on file Sexual Orientation Not on file documented as of this encounter Plan of Treatment Not on file documented as of this encounter Visit Diagnoses Diagnosis Other bursitis disorders- Primary documented in this encounter Care Teams It Systems Manager Relationship Specialty Start Date End Date Landry Villarreal MD [address] [place] [address] PCP - General Family Practice 03/11/17 documented as of this encounter
--- OUTSIDE RECORDS SUMMARY | 2025-01-18 18:01 | XMS_ITS | Encounter Summary ---
Author Organization [facility] Address [address] [place] [address] Care Team Providers Care Silk Blocker Name Role Phone Landry Villarreal MD Primary Care Provider [phone] Encounter Details Date Type Department Care Team (Latest Contact Info) Description 05/20/2006 Outpatient [facility] OBGYN-Lee Sanju [place] [address] [place] [address] José Luis Castro MD [address] [facility] [address] [place] [address] Unspecified Symptom Associated with Female Genital Organs (Primary Dx); Viral Infection Social History Tobacco Use Types Packs/Day Years Used Date Smoking Tobacco: Never Assessed Comments Unknown Sex and Gender Information Value Date Recorded Sex Assigned at Not on file Legal Sex Female 5:33 AM BIOINFORMATICS COMPUTER 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
--- OUTSIDE RECORDS SUMMARY | 2025-01-18 18:01 | XMS_ITS | Encounter Summary ---
Author Organization [facility] Address [address] [place] [address] Care Team Providers Care Patent Drafter Name Role Phone Landry Villarreal MD Primary Care Provider [phone] Encounter Details Date Type Department Care Team (Latest Contact Info) Description 02/11/2006 Outpatient Historical [facility] Medicine [address] [phone] Louie Berman, MOMD TEACHER [address] [place] [address] Abdominal Pain, Unspecified Site (Primary Dx) Social History Tobacco Use Types Packs/Day Years Used Date Smoking Tobacco: Never Assessed Comments Unknown Sex and Gender Information Value Date Recorded Sex Assigned at Not on file Legal Sex Female 5:33 AM PICKLE WATER PUMP 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
--- OUTSIDE RECORDS SUMMARY | 2025-01-18 18:01 | XMS_ITS | Encounter Summary ---
Author Organization [facility] Address [address] [place] [address] Care Team Providers Care Revenue Coordinator Name Role Phone Landry Villarreal MD Primary Care Provider [phone] Encounter Details Date Type Department Care Team (Late st Contact Info) Description 08/03/2006 Outpatient Historical [facility] Willian [address] [place] [address] Gwen Christian MD [facility] [place], [place] [address] Social History Tobacco Use Types Packs/Day Years Used Date Smoking Tobacco: Never Assessed Comments Unknown Sex and Gender Information Value Date Recorded Sex Assigned at Not on file Legal Sex Female 5:33 AM PIECE MEAT TRIMMER Gender Identity Not on file Sexual Orientation Not on file documented as of this encounter Plan of Treatment Not on file documented as of this encounter Visit Diagnoses Not on filedocumented in this encounter Care Teams Revenue Coordinator Relationship Specialty Start Date End Date Landry Villarreal MD [address] [place] [address] PCP - General Family Practice 03/11/17 documented as of this encounter
--- OUTSIDE RECORDS SUMMARY | 2025-01-18 18:01 | XMS_ITS | Encounter Summary ---
Author Organization [facility] Address [address] [place] [address] Care Team Providers Care Epilepsy Physician Name Role Phone Landry Villarreal MD Primary Care Provider [phone] Encounter Details Date Type Department Care Team (Late st Contact Info) Description 08/05/2007 Outpatient Historical [facility] Medicine [place] [address] [place] [phone] Shameka Cox, [facility] [address] [phone] Social History Tobacco Use Types Packs/Day Years Used Date Smoking Tobacco: Never Assessed Comments Unknown Sex and Gender Information Value Date Recorded Sex Assigned at Not on file Legal Sex Female 5:33 AM CANDY POLISHER Gender Identity Not on file Sexual Orientation Not on file documented as of this encounter Plan of Treatment Not on file documented as of this encounter Visit Diagnoses Not on filedocumented in this encounter Care Teams Epilepsy Physician Relationship Specialty Start Date End Date Landry Villarreal MD [address] [place] [address] PCP - General Family Practice 03/11/17 documented as of this encounter
--- OUTSIDE RECORDS SUMMARY | 2025-01-18 18:01 | XMS_ITS | Encounter Summary ---
Author Organization [facility] Address [address] [place] [address] Care Team Providers Care Clinical Administrative Coordinator Name Role Phone Landry Villarreal MD Primary Care Provider [phone] Encounter Details Date Type Department Care Team (Latest Contact Info) Description 04/20/2006 Outpatient Historical 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
--- OUTSIDE RECORDS SUMMARY | 2025-01-18 18:01 | XMS_ITS | Encounter Summary ---
Author Organization [facility] Address [address] [place] [address] Care Team Providers Care Motor Bike Mechanic Name Role Phone Landry Villarreal MD Primary Care Provider [phone] Encounter Details Date Type Department Care Team (Latest Contact Info) Description 10/20/[address] [facility] Imaging Services-[facility] [place] [address] [place] [address] José Luis Castro MD [address] [facility] [address] [place] [address] FEMALE GENITAL SYMPTOMS NOS (Primary Dx) Social History Tobacco Use Types Packs/Day Years Used Date Smoking Tobacco: Never Assessed Comments Unknown Sex and Gender Information Value Date Recorded Sex Assigned at Not on file Legal Sex Female 5:33 AM COMMISSIONS MANAGER Gender Identity Not on file Sexual Orientation Not on file documented as of this encounter Plan of Treatment Not on file documented as of this encounter Visit Diagnoses Diagnosis Unspecified symptom associated with female genital organs- Primary documented in this encounter Care Teams Motor Bike Mechanic Relationship Specialty Start Date End Date Landry Villarreal MD [address] [place] [address] PCP - General Family Practice 03/11/17 documented as of this encounter
--- OUTSIDE RECORDS SUMMARY | 2025-01-18 18:02 | XMS_ITS | Encounter Summary ---
Author Organization [facility] Address [address] [place] [address] Care Team Providers Care Provider Relations Representative Name Role Phone Landry Villarreal MD Primary Care Provider [phone] Encounter Details Date Type Department Care Team (Late st Contact Info) Description 08/17/2004 Outpatient Historical [facility] Operating Room [address] [place] [phone] Brandon Trejo MD NO ADDRESS ON FILE Social History Tobacco Use Types Packs/Day Years Used Date Smoking Tobacco: Never Assessed Comments Unknown Sex and Gender Information Value Date Recorded Sex Assigned at Not on file Legal Sex Female 5:33 AM INDUSTRIAL ANALYST Gender Identity Not on file Sexual Orientation Not on file documented as of this encounter Plan of Treatment Not on file documented as of this encounter Visit Diagnoses Not on filedocumented in this encounter Care Teams Provider Relations Representative Relationship Specialty Start Date End Date Landry Villarreal MD [address] [place] [address] PCP - General Family Practice 03/11/17 documented as of this encounter
--- OUTSIDE RECORDS SUMMARY | 2025-01-18 18:02 | XMS_ITS | Encounter Summary ---
Author Organization [facility] Address [address] [place] [address] Care Team Providers Care Child Welfare Assistant Name Role Phone Landry Villarreal MD Primary Care Provider [phone] Encounter Details Date Type Department Care Team (Latest Contact Info) Description 09/18/2004 Outpatient Historical [facility] Medicine [address] [address] Joseph Rehman MD [address] [place] [phone] ABDOMINAL PAIN EPIGASTRIC (Primary Dx) Social History Tobacco Use Types Packs/Day Years Used Date Smoking Tobacco: Never Assessed Comments Unknown Sex and Gender Information Value Date Recorded Sex Assigned at Not on file Legal Sex Female 5:33 AM SPACE SYSTEMS OPERATIONS 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
--- OUTSIDE RECORDS SUMMARY | 2025-01-18 18:02 | XMS_ITS | Encounter Summary ---
Author Organization [facility] Address [address] [place] [address] Care Team Providers Care Stroke Coordinator Name Role Phone Landry Villarreal MD Primary Care Provider [phone] Encounter Details Date Type Department Care Team (Latest Contact Info) Description 06/14/2004 Outpatient Historical [facility] Medicine [address] [address] Jocelyne Hair MD [address] [place] [phone] DISLOC SHOULDER NOS-CLOSE (Primary Dx) Social History Tobacco Use Types Packs/Day Years Used Date Smoking Tobacco: Never Assessed Comments Unknown Sex and Gender Information Value Date Recorded Sex Assigned at Not on file 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
--- OUTSIDE RECORDS SUMMARY | 2025-01-18 18:02 | XMS_ITS | Encounter Summary ---
Author Organization [facility] Address [address] [place] [address] Care Team Providers Care Marketing Content Manager Name Role Phone Landry Villarreal MD Primary Care Provider [phone] Encounter Details Date Type Department Care Team (Late st Contact Info) Description 07/24/2004 Outpatient Historical [facility] [address] [place] [address] 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
--- OUTSIDE RECORDS SUMMARY | 2025-01-18 18:02 | XMS_ITS | Encounter Summary ---
Author Organization [facility] Address [address] [place] [address] Care Team Providers Care Needle Polisher Name Role Phone Landry Villarreal MD Primary Care Provider [phone] Reason for Referral * Outpatient Services (Routine) - Closed Specialty Diagnoses / Procedures Referred By Samantha hubbard Referred To Contact Diagnoses Pain in left shoulder Unspecified injury of muscle(s) and tendon(s) of the rotator cuff of unspecified shoulder, initial encounter Procedures MRI SHOULDER WO CONTRAST LEFT Tika Cardenas FNP [address] [place] [address] Phone: tel: fax: [facility] Pre-Registration [place] CALL TO MAKE APPOINTMENT ONLY [address] [place] [address] Phone: tel: fax: Referral ID Status Reason Start Date Expiration Date V isits Requested Visits Authorized [id number] Closed [facility] TO SCHEDULE ([facility]) 03/05/2017 04/05/2018 1 1 Encounter Details Date Type Department Care Team (Latest Contact Info) Description 03/05/2017 Ancillary Orders [facility] Pre-Registration [place] CALL TO MAKE APPOINTMENT ONLY [address] [place] [address] Tika Cardenas FNP [address] [place] [address] Pain in left shoulder; Unspecified injury of muscle(s) and tendon(s) of the rotator cuff of unspecified shoulder, initial encounter Social History Tobacco Use Types Packs/Day Years Used Date Smoking Tobacco: Never Alcohol Use Standard Drinks/Week Comments No 0 (1 standard drink = 0.6 oz pur e alcohol) Comments Yes Sex and Gender Information Value Date Recorded Sex Assigned at Not on file 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 Exam: MRI SHOULDER WO CONTRAST LEFT Date/Time of Exam: 03/23/2017 10:34 AM Reason For Exam: Pain in left shoulder,Unspecified injury of muscle(s) and tendon(s) of the rotator cuff of unspecified shoulder, initial encounter. Technique: MRI of the left shoulder was performed without the administration of intravenous contrast. Findings: There is increased fluid in the subacromial and subdeltoid bursa. There is diffuse edema with some mild bursal-sided fraying of the critical zone of the supraspinatus and infraspinatus. There is a subacromial enthesophyte. Moderate degenerative changes of the acromioclavicular joint are noted with proliferative osteophytes protruding inferiorly. Osteophytes are especially flattening the musculotendinous junction of the supraspinatus. The teres minor is intact. Subscapularis also demonstrates some partial bursal-sided tearing and edema but no complete tear. Moderate biceps tendinopathy is noted. The biceps tendon is enlarged and there is abundant fluid surrounding the tendon. The tendon is subluxing from the bicipital groove of the humerus and dissecting between the subscapularis tendon fibers. There is no SLAP tear. No linear labral tear. There is some fraying of the posterior inferior labrum. Mild cartilage thinning of the glenohumeral joint is noted. There is no muscle atrophy. Sagittal images also demonstrate that there is some edema at the musculotendinous junction of the supraspinatus far medial to the insertion of the humerus best seen on series 7 image 1. This portion of the muscle is mildly enlarged and diffusely edematous suggestive of a strain along the far medial aspect of the scapula at the edge of the [id number]. Coronal images also demonstrate some intermediate signal along the articular surface of the critical zone of the supraspinatus that may reflect some mild articular-sided fraying or tendinopathy. IMPRESSION: 1. Bursal-sided partial tearing of the rotator cuff with abundant edema and bony proliferative changes compatible with impingement. Tendinopathy versus mild articular-sided fraying of the supraspinatus is also noted. 2. Separate from these findings is a second area of marked edema involving the supraspinatus muscle medial to the tendon insertion. This portion of the muscle is mildly enlarged and the appearance suggests a recent strain of the muscle itself. [id number] Narrative Procedure Note Radha Mccartney MD - 03/23/2017 IMPRESSION: Please see below. Exam: MRI SHOULDER WO CONTRAST LEFT Date/Time of Exam: 03/23/2017 10:34 AM Reason For Exam: Pain in left shoulder,Unspecified injury of muscle(s) and tendon(s) of the rotator cuff of unspecified shoulder, initial encounter. Technique: MRI of the left shoulder was performed without the administration of intravenous contrast. Findings: There is increased fluid in the subacromial and subdeltoid bursa. There is diffuse edema with some mild bursal-sided fraying of the critical zone of the supraspinatus and infraspinatus. There is a subacromial enthesophyte. Moderate degenerative changes of the acromioclavicular joint are noted with proliferative osteophytes protruding inferiorly. Osteophytes are especially flattening the musculotendinous junction of the supraspinatus. The teres minor is intact. Subscapularis also demonstrates some partial bursal-sided tearing and edema but no complete tear. Moderate biceps tendinopathy is noted. The biceps tendon is enlarged and there is abundant fluid surrounding the tendon. The tendon is subluxing from the bicipital groove of the humerus and dissecting between the subscapularis tendon fibers. There is no SLAP tear. No linear labral tear. There is some fraying of the posterior inferior labrum. Mild cartilage thinning of the glenohumeral joint is noted. There is no muscle atrophy. Sagittal images also demonstrate that there is some edema at the musculotendinous junction of the supraspinatus far medial to the insertion of the humerus best seen on series 7 image 1. This portion of the muscle is mildly enlarged and diffusely edematous suggestive of a strain along the far medial aspect of the scapula at the edge of the [id number]. Coronal images also demonstrate some intermediate signal along the articular surface of the critical zone of the supraspinatus that may reflect some mild articular-sided fraying or tendinopathy. IMPRESSION: 1. Bursal-sided partial tearing of the rotator cuff with abundant edema and bony proliferative changes compatible with impingement. Tendinopathy versus mild articular-sided fraying of the supraspinatus is also noted. 2. Separate from these findings is a second area of marked edema involving the supraspinatus muscle medial to the tendon insertion. This portion of the muscle is mildly enlarged and the appearance suggests a recent strain of the muscle itself. [id number] [facility] MR ORDERABLES Final Result documented in this encounter Visit Diagnoses Diagnosis Pain in left shoulder Pain in joint, shoulder region Unspecified injury of muscle(s) and tendon(s) of the rotator cuff of unspecified shoulder, initial encounter Pain in left shoulder Pain in joint, shoulder region Unspecified injury of muscle(s) and tendon(s) of the rotator cuff of unspecified shoulder, initial encounter documented in this encounter Care Teams Needle Polisher Relationship Specialty Start Date End Date Landry Villarreal MD [address] [place] [address] PCP - General Family Practice 03/11/17 documented as of this encounter
--- OUTSIDE RECORDS SUMMARY | 2025-01-18 18:02 | XMS_ITS | Encounter Summary ---
Author Organization [facility] Address [address] [place] [address] Care Team Providers Care Filling Machine Tender Name Role Phone Landry Villarreal MD Primary Care Provider [phone] Encounter Details Date Type Department Care Team (Latest Contact Info) Description 06/25/2004 Outpatient Historical [facility] Orthopedics- 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
--- OUTSIDE RECORDS SUMMARY | 2025-01-18 18:02 | XMS_ITS | Encounter Summary ---
Author Organization [facility] Address [address] [place] [address] Care Team Providers Care Special Distribution Clerk Name Role Phone Landry Villarreal MD Primary Care Provider [phone] Encounter Details Date Type Department Care Team (Latest Contact Info) Description 07/23/2004 Outpatient Historical [facility] Orthopedics- 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
--- OUTSIDE RECORDS SUMMARY | 2025-01-18 18:02 | XMS_ITS | Encounter Summary ---
Author Organization [facility] Address [address] [place] [address] Care Team Providers Care Geochemistry Teacher Name Role Phone Landry Villarreal MD Primary Care Provider [phone] Encounter Details Date Type Department Care Team (Latest Contact Info) Description 12/05/2004 Outpatient Historical 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
--- OUTSIDE RECORDS SUMMARY | 2025-01-18 18:02 | XMS_ITS | Encounter Summary ---
Author Organization [facility] Address [address] [place] [address] Care Team Providers Care Inclusion Manager Name Role Phone Landry Villarreal MD Primary Care Provider [phone] Encounter Details Date Type Department Care Team (Late st Contact Info) Description 09/26/2004 Outpatient Historical [facility] Gen Spec Surg [address] [address] Teodoro Watts MD [address] [place] [address] CHOLELITH W CHOLECYS NEC (Primary Dx) Social History Tobacco Use Types Packs/Day Years Used Date Smoking Tobacco: Never Assessed Comments Unknown Sex and Gender Information Value Date Recorded Sex Assigned at Not on file 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
--- OUTSIDE RECORDS SUMMARY | 2025-01-18 18:02 | XMS_ITS | Encounter Summary ---
Author Organization [facility] Address [address] [place] [address] Care Team Providers Care Electronics Production Supervisor Name Role Phone Landry Villarreal MD Primary Care Provider [phone] Encounter Details Date Type Department Care Team (Late st Contact Info) Description 10/04/2004 Outpatient [facility] 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
--- OUTSIDE RECORDS SUMMARY | 2025-01-18 18:02 | XMS_ITS | Encounter Summary ---
Author Organization [facility] Address [address] [place] [address] Care Team Providers Care Corn Breeder Name Role Phone Landry Villarreal MD Primary Care Provider [phone] Reason for Referral * CT Scan (Urgent) - Closed Specialty Diagnoses / Procedures Referred By Contac t Referred To Contact Diagnoses Crushing injury of multiple sites of trunk Procedures CT PELVIS W CONTRAST CT HIP W CONTRAST RIGHT CT HIP WO CONTRAST RIGHT CT HIP W CONTRAST RIGHT Ana Arambula MD [facility] Pre-Registration [place] CALL TO MAKE APPOINTMENT ONLY [address] [place] [address] Phone: tel: fax: Referral ID Status Reason Start Date Expiration Date V isits Requested Visits Authorized [id number] Closed [facility] MC TO SCHEDULE ([facility]) 09/13/2019 09/13/2019 1 1 Encounter Details Date Type Department Care Team (Late st Contact Info) Description 09/13/2019 Ancillary Orders [facility] General and Trauma Surgery-[address] [place] [address] Ana Arambula MD NO ADDRESS ON FILE Crushing injury of multiple sites of trunk Social History Tobacco Use Types Packs/Day Years Used Date Smoking Tobacco: Never Smokeless Tobacco: Never Alcohol Use Standard Drinks/Week Comments Not Currently 0 (1 standard drink = 0.6 oz pur e alcohol) Comments No Sex and Gender Information Value Date Recorded Sex Assigned at Not on file 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 No / Unsure 09/15/2019 6:20 PM CDT documented as of this encounter Plan of Treatment Not on file documented as of this encounter Results * CT PELVIS W CONTRAST (09/13/2019 2:33 PM CDT) Anatomical Region Laterality Modality Pelvis Computed Tomogra phy 09/13/2019 2:33 PM CDT Impressions 09/13/2019 4:14 PM CDT IMPRESSION: Please see below. Exam: CT PELVIS W CONTRAST Date/Time of Exam: 09/13/2019 2:33 PM Reason For Exam: See diagnosis. Diagnosis: Crushing injury of multiple sites of trunk. Technique: CT of the pelvis was performed following the administration of intravenous contrast. Contrast: Iopamidol 61 % intravenous solution. Given:75 ml. Comparison: None. Findings: There is a large irregular fluid collection within the subcutaneous fat of the right gluteal region extending inferiorly off the vyqoj-ul-subx into the lateral aspect of the right proximal thigh measuring at least 14.5 x 16.0 x 36.7 cm in the AP, transverse, and craniocaudal dimensions. No subcutaneous emphysema or intralesional gas is identified. There is a mild to moderate degree of surrounding subcutaneous fat induration. Primary differential considerations would include soft tissue hematoma or hemolymphatic fluid collection (Henry Wolf type lesion). There are chronic appearing nonunited fractures involving the bilateral lamina of the L5 vertebral body. The osseous structures appear otherwise intact. The joints are anatomically aligned and appear well-maintained. There is no significant intrapelvic pathology. IMPRESSION: 1. Large nonspecific fluid collection within the subcutaneous soft tissues of the right gluteal region extending into the upper thigh likely reflecting hematoma versus hemolymphatic fluid collection in the post traumatic setting. 2. 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 [id number] Narrative Procedure Note Alessandro Mason N, DO - 09/13/2019 IMPRESSION: Please see below. Exam: CT PELVIS W CONTRAST Date/Time of Exam: 09/13/2019 2:33 PM Reason For Exam: See diagnosis. Diagnosis: Crushing injury of multiple sites of trunk. Technique: CT of the pelvis was performed following the administration of intravenous contrast. Contrast: Iopamidol 61 % intravenous solution. Given:75 ml. Comparison: None. Findings: There is a large irregular fluid collection within the subcutaneous fat of the right gluteal region extending inferiorly off the bzxzn-ol-vufb into the lateral aspect of the right proximal thigh measuring at least 14.5 x 16.0 x 36.7 cm in the AP, transverse, and craniocaudal dimensions. No subcutaneous emphysema or intralesional gas is identified. There is a mild to moderate degree of surrounding subcutaneous fat induration. Primary differential considerations would include soft tissue hematoma or hemolymphatic fluid collection (Henry Wolf type lesion). There are chronic appearing nonunited fractures involving the bilateral lamina of the L5 vertebral body. The osseous structures appear otherwise intact. The joints are anatomically aligned and appear well-maintained. There is no significant intrapelvic pathology. IMPRESSION: 1. Large nonspecific fluid collection within the subcutaneous soft tissues of the right gluteal region extending into the upper thigh likely reflecting hematoma versus hemolymphatic fluid collection in the post traumatic setting. 2. 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 [id number] ORDERABLES Final Res ult documented in this encounter Visit Diagnoses Diagnosis Crushing injury of multiple sites of trunk Crushing injury of multiple sites of trunk documented in this encounter Care Teams Corn Breeder Relationship Specialty Start Date End Date Landry Villarreal MD [address] [place] [address] PCP - General Family Practice 03/11/17 documented as of this encounter
--- OUTSIDE RECORDS SUMMARY | 2025-01-18 18:02 | XMS_ITS | Encounter Summary ---
Author Organization [facility] Address [address] [place] [address] Care Team Providers Care Rehabilitation Center Manager Name Role Phone Landry Villarreal MD Primary Care Provider [phone] Encounter Details Date Type Department Care Team (Late st Contact Info) Description 07/24/2004 Outpatient Historical [facility] Dermatology- 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 Gender Identity Not on file Sexual Orientation Not on file documented as of this encounter Plan of Treatment Not on file documented as of this encounter Visit Diagnoses Diagnosis Benign kim scalp/skin neck- Primary Benign neoplasm of scalp and skin of neck Benign kim skin trunk Benign neoplasm of skin of trunk, except scrotum Benign kim skin ear Benign neoplasm of ear and external auditory canal documented in this encounter Care Teams Rehabilitation Center Manager Relationship Specialty Start Date End Date Landry Villarreal MD [address] [place] [address] PCP - General Family Practice 03/11/17 documented as of this encounter
--- OUTSIDE RECORDS SUMMARY | 2025-01-18 18:02 | XMS_ITS | Encounter Summary ---
Author Organization [facility] Address [address] [place] [address] Care Team Providers Care Senior Procurement Manager Name Role Phone Landry Villarreal MD Primary Care Provider [phone] Encounter Details Date Type Department Care Team (Late st Contact Info) Description 10/17/2004 Outpatient Historical [facility] Gen Spec Surg [address] [phone] Teodoro Watts MD [address] [place] [phone] CHRONIC CHOLECYSTITIS NEC (Primary Dx); SURGERY FOLLOWUP, UNSPEC Social History Tobacco Use Types Packs/Day Years Used Date Smoking Tobacco: Never Assessed Comments Unknown Sex and Gender Information Value Date Recorded Sex Assigned at Not on file Legal Sex Female 5:33 AM BDR Gender Identity Not on file Sexual Orientation Not on file documented as of this encounter Plan of Treatment Not on file documented as of this encounter Visit Diagnoses Diagnosis Chronic cholecystitis- Primary Follow-up examination, following unspecified surgery documented in this encounter Care Teams Senior Procurement Manager Relationship Specialty Start Date End Date Landry Villarreal MD [address] [place] [address] PCP - General Family Practice 03/11/17 documented as of this encounter
--- OUTSIDE RECORDS SUMMARY | 2025-01-18 18:02 | XMS_ITS | Encounter Summary ---
Author Organization [facility] Address [address] [place] [address] Care Team Providers Care Change Control Manager Name Role Phone Landry Villarreal MD Primary Care Provider [phone] Encounter Details Date Type Department Care Team (Late st Contact Info) Description 01/10/2025 External Device Data [facility] ABSTRACTION Provider, Abstract NO ADDRESS ON FILE Social History Tobacco Use Types Packs/Day Years Used Date Smoking Tobacco: Never Smokeless Tobacco: Never Alcohol Use Standard Drinks/Week Comments Not Currently 0 (1 standard drink = 0.6 oz pur e alcohol) Comments Unknown Sex and Gender Information Value Date Recorded Sex Assigned at Not on file 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
--- OUTSIDE RECORDS SUMMARY | 2025-01-18 18:02 | XMS_ITS | Clinical Summary ---
Author Organization [facility] Address [address] [place] [address] Care Team Providers Care Seo Intern Name Role Phone Landry Villarreal MD Primary Care Provider [phone] Allergies Active Allergy Reactions Criticality Noted Date Comments Adhesive Other (See Comments) High 05/14/2020 Blisters. When patient had steri strips Avocado Hives High 08/05/2019 Hydrocodone-Acetamin ophen Rash,Itching Low 10/13/2007 Meperidine Hives,Itching,Swelli n g High 10/13/2007 Morphine Shortness of Breath/Wheezing High 10/13/2007 Vancomycin Renal Dysfunctions High 01/23/2020 Pt reports went into kidney failure following Vanc dose on 10-04-2019, for sepsis from injury to R leg - leg drain became infected. Pr resulted in having dialysis from 10-11-2019 through November 2019. Marian Loja, large animal husbandry technician with [facility] told pt to never have vanc again. Medications ALPRAZolam (XANAX) 0.5 mg tablet Take 0.5 mg by mouth 2 times daily as needed for Anxiety. 10/04/2019 Active buPROPion HCL (WELLBUTRIN XL) 150 mg Extended Release 24 hour tablet Take 1 Tablet by mouth daily. 07/24/2024 Active Active Problems Problem Noted Date Diagnosed Date ATN (acute tubular necrosis) 10/17/2019 Protein-calorie malnutrition, moderate 0 Cellulitis 10/05/2019 Henry Wolf lesion 09/13/2019 Sepsis DAVID (acute kidney injury) Resolved Problems Problem Noted Date Diagnosed Date Resolved Date Supervision of other normal 11/15/2007 09/13/2019 Encounters Date Type Department Care Team Description 01/10/2025 External Device Data STL ABSTRACTION Provider, Abstract 12/21/2024 External Device Data STL ABSTRACTION Provider, Abstract 12/20/2024 External Device Data STL ABSTRACTION Provider, Abstract 11/22/2024 External Device Data STL ABSTRACTION Provider, Abstract 11/08/2024 External Device Data STL ABSTRACTION Provider, Abstract 10/27/2024 External Device Data STL ABSTRACTION Provider, Abstract 10/25/2024 External Device Data STL ABSTRACTION Provider, Abstract from Last 3 Months Immunizations Immunization Administration Dates Next Due (TDVAX)(7 [...] on file 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 Gender Identity Not on file Sexual Orientation Not on file Last Filed Vital Signs Vital Sign Reading Time Taken Comments Blood Pressure 114/66 08/22/2024 2:50 PM CDT Pulse 87 04/03/2021 11:08 AM CDT Temperature 36.4 C (97.5 F) 08/06/2020 3:12 PM CHIROPRACTIC TEACHER Respiratory Rate 16 08/06/2020 3:45 PM CHIROPRACTIC TEACHER Oxygen Saturation - - Inhaled Oxygen Concentration - - Weight 94.5 kg (208 lb 6.4 oz) 08/22/2024 2:50 P M CDT Height 162.6 cm (5' 4 ) 08/22/2024 2:50 PM CDT Body Mass Index 35.77 08/22/2024 2:50 PM CDT Plan of Treatment Health Maintenance Due Date Last Done Comments HEPATITIS B VACCINES (1 of 3 - 19+ 3-dose series) 1996 HPV/Cotest (21-29) 1998 DTAP/TDAP/TD VACCINES (1 - Tdap) 11/26/2004 11/26/19 05 CERVICAL CANCER SCREENING 2007 HPV/Cotest (30-65) 2007 PAP SMEAR 2007 BREAST CANCER SCREENING 2017 COLORECTAL SCREENING 2022 Colorectal Cancer Screening 2022 FIT-DNA Q 3 years 2022 FIT/FOBT Q 1 year 2022 Flex Sig/CT Colonography Q 5 years 2022 Pre-Diabetes and Diabetes Screening 10/07/202210/07 COVID-19 Vaccine ( season) 2024, 03/16/2021 INFLUENZA VACCINE (#1) 2025 , 03/21/2018, 03/25/2017 Medical Devices Implanted Type Area Supervisor Pipe Finishing Device Identifier Shelf Expiration Date Model / Serial / Lot [place] Speedbridge 4.75mm Swivelalex [id number] - [id number] Implanted:Qty: 1 on 01/23/2020 by Dilip Barajas III, MD [place] Right: Shoulder [employer] [id number] 09/05/2021 AR-2600SB S-9 / / [id number] [place] Suture 4.98p29od [employer]ativis Swivelock-C Dbl #2tw [id number] - [id number] Implanted:Qty: 1 on 01/23/2020 by Dilip Barajas III, MD [place] Right: Shoulder [employer] [id number] 10/06/2023 AR-2324BC C-2 / / [id number] Resolve Drainage Catheter-2019 Implanted:Qty: 1 on 10/06/2019 by Shai Jerome MD Catheter Right: Leg [id number] 10/05/2021 [facility]-14-03 8MB / / [id number] Cath Dialysis Glidepath 14.5fr 24cm Std [id number]/5/20 20 Implanted:Qty: 1 on 10/11/2019 by Deepak Lam MD Catheter CR BARD[employer] [id number] 03/07/2021 [id number] / / [id number] Explanted Type Area Supervisor Pipe Finishing Device Identifier Shelf Expiration Date Model / Serial / Lot 10f Resolve Drainage Catheter-09/18 Implanted:Qty : 1 on 09/19/2019 by Alessandro Linn MD Explanted:Qty : 1 on 10/06/2019 by Shai Jerome MD Catheter Right: Hip [id number] 04/07/2022 [facility]-10-038 MB / / [id number] Procedures Procedure Name Priority Date/Time Associated Diagnosis Comments HEMOGLOBIN A1C Routine 10/08/2019 4:09 AM CDT from Last 3 Months or Most Recently Relevant to Health Maintenance Results * (ABNORMAL) HEMOGLOBIN A1C (10/08/2019 4:09 AM CDT) HEMOGLOBIN A1C 5.7(H) <=5.6 % 10/10/2019 10:19 AM CDT [facility] [employer] [facility] EST. AVG GLUCOSE, A1C 117 mg/dL 10/10/2019 10:19 AM CDT [facility] [employer] [facility] Blood Venipuncture / Unknown 10/08/2019 4:09 AM CDT 10/08/2019 4:18 AM CDT Narrative [facility] LABORATORY [facility] - 10/10/2019 10:19 AM CDT HGB A1C INTERPRETATION NORMAL: <5.7% PRE-DIABETES: 5.7 - 6.4% DIABETES: 6.5% OR GREATER Jeferson Ny NP CHEMISTRY ORDERABLES Final R esult [facility] [employer] [facility] CLIA# [id number] [address] [place] [address] [facility] [employer] [facility] CLIA# [id number] [address] [place] [address], [place] [address] from Last 3 Months or Most Recently Relevant to Health Maintenance Insurance BCBS ANTHEM BLUE ACCESS * Guarantor: YOUSUF BARRERA Account Type Relation to Patient Date of Phone Billing Address Personal/Family [facility] [place] [address] RX MEDIMPACT Member Subscriber Plan / Payer (Ef fective 2019-Present) Name:Judah Yousuf Bonnie Relation to Subscriber:Spouse Name:YOUSUF BARRERA Subscriber ID:Not on file Payer ID:Not on file Group ID:[id number] Type:RX Commercial Address: [place], [place] RX SERVRX Commercial RX [employer] Commercial Care Teams Seo Intern Relationship Specialty Start Date End Date Landry Villarreal MD [address] [place] [address] PCP - General 08/13/20
--- OUTSIDE RECORDS SUMMARY | 2025-01-18 18:02 | XMS_ITS | Encounter Summary ---
Author Organization [facility] Address [address] [place] [address] Care Team Providers Care Game Breeding Farm Manager Name Role Phone Landry Villarreal MD Primary Care Provider Encounter Details Date Type Department Care Team (Late st Contact Info) Description 12/14/2015 Lab Requisition [facility] Laboratory Services [place] [address] [place] [phone] Uriel Govea MD NO ADDRESS ON FILE Social History Tobacco Use Types Packs/Day Years Used Date Smoking Tobacco: Never Alcohol Use Standard Drinks/Week Comments No 0 (1 standard drink = 0.6 oz pur e alcohol) Comments Yes Sex and Gender Information Value Date Recorded Sex Assigned at Not on file 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 Gender Identity Not on file Sexual Orientation Not on file documented as of this encounter Plan of Treatment Not on file documented as of this encounter Procedures Procedure Name Priority Date/Time Associated Diagnosis Comments DRUG SCREEN, URINE Routine 12/14/2015 8: 25 AM CDT documented in this encounter Results * (ABNORMAL) DRUG SCREEN, URINE (12/14/2015 8:25 AM CDT) CANNABINOIDS QUAL, URINE Negative Negative 12/14/2015 9:12 AM CDT [facility] LABORATORY SERVICES [facility] PCP QUAL, URINE Negative Negative 12/14/2015 9:12 AM CDT [facility] [employer] [facility] COCAINE QUAL URINE Negative Negative 12/14/2015 9:12 AM [facility] METHAMPHETAMINE QUAL, URINE Negative Negative 12/14/2015 9:12 AM [facility] OPIATE QUAL, URINE Negative Negative 12/14/2015 9:12 AM [facility] AMPHETAMINE QUAL, URINE Negative Negative 12/14/2015 9:12 AM [facility] BENZODIAZEPINE QUAL, URINE Negative Negative 12/14/2015 9:12 AM [facility] TRICYCLICS QUAL, URINE Test Not Included(A) Negative 12/14/2015 9:12 AM [facility] METHADONE QUAL, URINE Test Not Included(A) Negative 12/14/2015 9:12 AM [facility] BARBITURATE QUAL, URINE Negative Negative 12/14/2015 9:12 AM [facility] OXYCODONE QUAL, URINE Negative Negative 12/14/2015 9:12 AM [facility] PROPOXYPHENE QUAL, URINE Negative Negative 12/14/2015 9:12 AM [facility] CREATININE, URINE 29.0 - 226.0 mg/dL 12/14/2015 9:12 AM [facility] Comment: Reference Range varies with fluid intake and diet. Urine URINE SPECIMEN OBTAINED BY CLEAN CATCH PROCEDURE / Unknown Collection / Unknown 12/14/2015 8:25 AM T 12/14/2015 8:52 AM [facility] Narrative [facility] - 12/14/2015 9:12 AM [facility] DRUG CLASS CUT-OFF CONCENTRATION DRUG Ng/mL CANNABINOIDS 50 COCCAINE 300 METHAMPHETAMINE 1000 OPIATES 300 AMPHETAMINES 1000 BENZODIAZEPINES 300 TRICYCLICS 300 METHADONE 300 BARBITURATES 200 PHENCYCLIDINE 25 OXYCODONE 100 PROPOXYPHENE 300 MEDTOX [id number] DRUGS OF ABUSE TEST SYSTEM Uriel Govea MD URINE ORDERABLES Final Result [facility] CLIA # [id number] [address] [address] documented in this encounter Visit Diagnoses Not on filedocumented in this encounter Care Teams Game Breeding Farm Manager Relationship Specialty Start Date End Date Landry Villarreal MD [address] [place] [address] PCP - General Family Practice 03/11/17 documented as of this encounter
--- OUTSIDE RECORDS SUMMARY | 2025-01-18 18:02 | XMS_ITS | Encounter Summary ---
Author Organization [facility] Address [address] [place] [address] Care Team Providers Care Teaching Music Lessons Name Role Phone Landry Villarreal MD Primary Care Provider [phone] Encounter Details Date Type Department Care Team (Late st Contact Info) Description 06/15/2004 Emergency [facility] Emergency Department [address] 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
--- OUTSIDE RECORDS SUMMARY | 2025-01-18 18:02 | XMS_ITS | Encounter Summary ---
Author Organization [facility] Address [address] [place] [address] Care Team Providers Care Informatics Application Analyst Name Role Phone Landry Villarreal MD Primary Care Provider [phone] Encounter Details Date Type Department Care Team (Late st Contact Info) Description 12/18/2015 Lab Requisition [facility] Laboratory Services [place] [address] [place] [phone] Uriel Govea MD NO ADDRESS ON FILE Social History Tobacco Use Types Packs/Day Years Used Date Smoking Tobacco: Never Alcohol Use Standard Drinks/Week Comments No 0 (1 standard drink = 0.6 oz pur e alcohol) Comments Yes Sex and Gender Information Value Date Recorded Sex Assigned at Not on file 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 Gender Identity Not on file Sexual Orientation Not on file documented as of this encounter Plan of Treatment Not on file documented as of this encounter Procedures Procedure Name Priority Date/Time Associated Diagnosis Comments T-SPOT TB Routine 12/18/2015 8:17 AM CDT HEPATITIS B SURFACE AB, QUAL Routine 12/18/2015 8:17 AM CDT RUBELLA IGG Routine 12/18/2015 8:17 AM CDT VARICELLA ZOSTER IGG Routine 12/18/2015 8:17 AM CDT MUMPS IGG ANTIBODY Routine 12/18/2015 8: 17 AM CDT documented in this encounter Results * T-SPOT TB (12/18/2015 8:17 AM CDT) Pathologist [facility] T-SPOT TB Negative 12/21/2015 12:19 PM CDT [facility] T-SPOT TB See Scanned Report 12/21/2015 12:19 PM CDT [facility] Blood specimen (specimen) Venipuncture - Lab Collect / Unknown 12/18/2015 8:17 AM CDT 12/18/2015 8:17 AM CDT Uriel Govea MD MICROBIOLOGY - GENERAL ORDERAB LES Final Result Performing Organization Address City/[facility]/ZIP Co de Phone Number [facility] CLIA # [id number] [address] [address] * (ABNORMAL) MUMPS IGG ANTIBODY (12/18/2015 8:17 AM CDT) [facility] MUMPS IGG AB Nonimmune - Negative(A) Immune - Positive 12/19/2015 1:59 PM CDT [facility] Blood Venipuncture - L ab Collect / Unknown 12/18/2015 8:17 AM CDT 12/18/2015 8:17 AM CDT Narrative [facility] LABORATORY [facility] - 12/19/2015 1:59 PM CDT A negative result indicates no virus antibody was detected. us Uriel Govea MD CHEMISTRY ORDERABLES Final Res ult [facility] CLIA# [id number] [address] [place] [address] * VARICELLA ZOSTER IGG (12/18/2015 8:17 AM CDT) Pathologist [facility] VZV IGG Positive 12/20/2015 10:42 AM CDT [facility] Comment: Results suggest response to immunization or prior exposure to the virus. REFERENCE VALUE Vaccinated: Positive (>=1.1 AI) Unvaccinated: Negative (<=0.8 AI) VARICELLA IGG INDEX 1.3 12/20/2015 10:42 AM CDT [facility] Comment: Test Performed by: [place] [address] Process Mechanic: Dilip Robbins II, M.D., Ph.D. Blood specimen (specimen) Venipuncture - Lab Collect / Unknown 12/18/2015 8:17 AM CDT 12/18/2015 8:17 AM CDT Uriel Govea MD CHEMISTRY ORDERABLES Final Res ult Performing Organization Address City/[facility]/ZIP Co de Phone Number [facility] * HEPATITIS B SURFACE AB, QUAL (12/18/2015 8:17 AM CDT) HEPATITIS B SURFACE AB, QUAL Non-reacti ve Non-react aureliano 12/18/2015 10:49 PM CDT [facility] Blood Venipuncture - L ab Collect / Unknown 12/18/2015 8:17 AM CDT 12/18/2015 8:17 AM CDT Uriel Govea MD CHEMISTRY ORDERABLES Final Res ult [facility] CLIA# [id number] [address] [place] [address] * RUBELLA IGG (12/18/2015 8:17 AM CDT) RUBELLA IGG IMMUNE Immune - Positive 12/18/2015 10:47 PM CDT [facility] Blood Venipuncture - L ab Collect / Unknown 12/18/2015 8:17 AM CDT 12/18/2015 8:17 AM CDT Narrative [facility] - 12/18/2015 10:47 PM CDT A positive result suggests response to immunization or prior exposure to the virus. us Uriel Govea MD CHEMISTRY ORDERABLES Final Res ult [facility] LAB[facility] CLIA# [id number] [address] [place] [address] documented in this encounter Visit Diagnoses Not on filedocumented in this encounter Care Teams Informatics Application Analyst Relationship Specialty Start Date End Date Landry Villarreal MD [address] [place] [address] PCP - General Family Practice 03/11/17 documented as of this encounter
--- OUTSIDE RECORDS SUMMARY | 2025-01-18 18:02 | XMS_ITS | Encounter Summary ---
Author Organization [facility] Address [address] [place] [address] Care Team Providers Care Die Reamer Name Role Phone Landry Villarreal MD Primary Care Provider [phone] Encounter Details Date Type Department Care Team (Late st Contact Info) Description 11/17/2004 Emergency [facility] [address] 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
--- NOTE | 2025-01-18 21:42 | PC.NURSE ---
Addendum entered by Debra Garza RN 01/19/25 03:46: Notified terminal gauger supervisor of patient refusal. Original Note: patient is having severe nausea and vomiting even after zofran, with diarrhea and a headache. Patient states that she does not believe this is a cardiac issue after speaking with and would like a covid test. Got orders from for a covid test, patient then stated that they wanted the heparin gtt off, and wishes to not go to lab aid in the AM. Physician notified, order for NS at 100mls an hour ordered, and requested to stop nitro paste, I let him know the patient has not had any since 9am. No further orders recieved at this time,heparin gtt stopped per patient request, patient is alert and orientedx4
[2025-01-18 22:29] LABS: Respiratory Syncytial Virus Ce NEGATIVE (Negative); SARS-CoV-2 PCR NEGATIVE (Negative)
[2025-01-19] VITALS: BP 122/79; PULSE 56; RESP 20; TEMP 37.1; O2SAT 98
--- NOTE | 2025-01-19 | ECG_ITS ---
[facility] Test Date: 2025-01-19 Pat Name: Allison So Department: Room: 107 Gender: Female American Sign Language Teacher: : 1975 Requested By: Joellen Prakash Order Number: [id number] Zhou MD: Jey Lopez M.D. Interpretive Statements LEXISCAN: Procedure: At the baseline, the blood pressure was 147/90 mmHg with a heart rate of 71 bpm. The electrocardiogram showed normal sinus rhythm, normal axis with normal ST and T's. The Lexiscan was infused over a period of 20 seconds. A total of 0.4 mg of Lexiscan was infused. The stress phase was continued for a total of 5 minutes. Heart rate was at the end of stress phase was 88 bpm and a blood pressure of 135/85 mmHg. The EKG at the peak infusion revealed normal sinus rhythm with no significant ST-T wave changes. Sestamibi was injected 20 seconds after the Lexiscan infusion. Blood pressure at the end of recovery phase was 138/93 mmHg with a heart rate of 72 bpm. Conclusion: 1. Normal EKG response to Lexiscan infusion 2. No Lexiscan induced chest pain or cardiac arrhythmia. 3. Normal blood pressure and heart rate response. 4. Sestamibi/sestamibi perfusion scan pending; see separate report. Electronically Signed On 01-22-2025 22:50:44 CDT by Jey Lopez M.D. [email or web address]
[2025-01-19 03:08] LABS: Hematocrit 33.8 % (36-47); Hemoglobin 11.20 g/dL (11.27-16.99); Mean Corpuscular HGB Conc 33.1 g/dL (30-55); Mean Corpuscular Hemoglobin 31.3 pg (27-33); Mean Corpuscular Volume 94.4 fl (85-98); Nucleated Red Blood Cells % 0 %; Platelet Count 258 10^3/cmm (157-399); Red Blood Count 3.58 10^6/uL (3.85-5.65); White Blood Count 6.42 10^3/uL (3.29-11.43)
[2025-01-19 03:36] LABS: Alanine Aminotransferase 10 U/L (0-33); Albumin Level 3.9 g/dL (3.5-5.2); Alkaline Phosphatase 50 U/L (35-105); Anion Gap 13.7 (5-19); Aspartate Amino Transferase 12 U/L (0-32); Blood Urea Nitrogen 13 mg/dL (6-20); Calcium 8.8 mg/dL (8.5-10.5); Carbon Dioxide 24 mmol/L (22-29); Chloride 107 mmol/L (98-107); Creatinine Clr Calc Pharmacy 96.2620; Globulin 2.6 g/dL (1.3-4.6); Glucose 103 mg/dL (65-115); Osmolality Calculated 292 mOsm/kg (285-295); Potassium 3.7 mmol/L (3.5-5.1); Sodium 141 mmol/L (136-145); Total Protein 6.5 g/dL (6.6-8.7)
[2025-01-19 03:56] VITALS: BP 127/90; PULSE 82; RESP 14; TEMP 37.1; O2SAT 99
--- NOTE | 2025-01-19 07:27 | NMCV_ITS ---
NM garima perf SPECT r/s* [id number] [address] So Age: 49 Gender: F : 1975 Exam Date: 01/19/2025 08:32 Ordering Phys: Joellen Prakash Technologist: RO Alcaraz Exam Location: [facility] Indications: CP STRESS TEST Please [facility] for full findings IMAGE PROTOCOL Rest/Stress 1 Lexiscan Day Radiopharmaceutical Dose (mCi) Administration Site Administered by Rest: Tc-99m 10.6 IV Nadia Peres APPRENTICE LINEMAN THIRD STEP Sestamibi Stress:Tc-99m 32.8 IV Nadia Peres, APPRENTICE LINEMAN THIRD STEP Sestamibi Rest: 19-Jan-2025 60 Discovery 630 Stress: 19-Jan-2025 30 Discovery 630 0.4mg Lexiscan. Images obtained in supine and prone position. SPECT RESULTS Technical Quality: Good Raw Data Analysis: Normal Image Corrections: No attenuation or motion correction applied Summed Stress Score: 0 Summed Rest Score: 0 Summed Difference Score: 0 PERFUSION FINDINGS There is a small sized area of reversible perfusion defect seen in the anterior wall. This is consistent with small area of ischemia in the LAD territory. Attenuation artifact can not be ruled out. Clinical correlation is required. FUNCTIONAL RESULTS (calculated via Gated SPECT) Stress Image LV EF (%): 74 Stress EDV (mL):81 TID: 0.88 Stress ESV (mL):21 FUNCTIONAL FINDINGS: There is normal left ventricular systolic function. IMPRESSIONS 1. Small area of ischemia seen in LAD territory. Attenuation artifact cannot be ruled out. Clinical correlation is required. 2. LV systolic function is normal. Jey Lopez MD (Electronically Signed) Final Date: 19 January 2025 11:02 S
--- NOTE | 2025-01-19 07:39 | PC.NURSE ---
Spoke with LUIS ENRIQUE Luque, to inquire about the patients hysterectomy or tubal status prior to starting the nuclear stress test. Ene was unsure of her history and is going to question the patient and get back with this nurse. Nuclear Medicine was called to notify and this nurse was told that the patient had already been injected by [employer] tech.
[2025-01-19 07:43] VITALS: BP 128/89; PULSE 67; RESP 15; TEMP 36.7; O2SAT 97
--- NOTE | 2025-01-19 07:44 | PC.NURSE ---
LUIS ENRIQUE Luque notified this nurse that the patient has not had a tubal or a hysterectomy. Will order a serum Hcg before proceeding.
--- NOTE | 2025-01-19 07:52 | PC.NURSE ---
Stat serum Hcg ordered per protocol to be run on blood in lab.
[2025-01-19 07:59] LABS: HCG, Serum Qual Negative (Negative)
--- NOTE | 2025-01-19 08:02 | PC.NURSE ---
Serum Hcg negative. Will proceed with lexiscan sestamibi stress test.
[2025-01-19] MEDS: aminophylline 25 mg/mL SDV 20 mL IVP (09:43)
[2025-01-19 09:52] VITALS: BP 138/93; PULSE 75
--- NOTE | 2025-01-19 10:00 | PC.NURSE ---
Stress test Lexiscan stress test completed. Intra stress test symptoms reported included some shortness of breath and nausea. About 2.5 minutes into recovery period post lexiscan complaints of SOB, chest pressure, nausea, and jaw pain. Pt originally declined aminophylline, with symptoms nurse encouraged reversal medication. 25mg IV aminophylline given. 11 minutes into recovery, patient reported relief in headache and nausea. Reports improvement in chest pressure but still some present. Declined any further need for aminophylline. Caffiene encouraged to patient, tolerating PO liquids well.
[2025-01-19 11:40] VITALS: BP 150/76; PULSE 72; RESP 19; TEMP 36.7; O2SAT 96
--- NOTE | 2025-01-19 12:58 | P.PN_ITS ---
Subjective 2 Subjective: Patient was seen this morning, very distressed as she tells me she had an episode of chest pain radiating into her right jaw Vitals/I&O/Wt Last Vital Signs Temp 98.0 F 01/19/25 11:40 Pulse 72 01/19/25 11:40 Resp 19 H 01/19/25 11:40 BP 150/76 01/19/25 11:40 Pulse Ox 96 01/19/25 11:40 O2 Del Method Room Air 01/19/25 03:56 01/18/25 01/19/25 01/19/25 22:59 06:59 14:59 Intake Total 169.433 / 369.683 0 / 369.683 0 / 0 Output Total 302 / 302 725 / 1027 Balance -132.567 / 67.683 -725 / -657.317 0 / 0 Weight last 48 hrs Weight 90.991 kg Weight 93.304 kg Weight 93.667 kg Weight 92.986 kg Physical Exam 2 Const: COMMON NORMALS: no acute distress and patient oriented x3 Resp: COMMON NORMALS: normal respiratory effort, No retractions, No use of accessory muscles and clear to auscultation bilaterally AUSCULTATION: clear to auscultation bilaterally Cardio: COMMON NORMALS: regular rate, regular rhythm, S1 normal heart sound present and S2 normal heart sound present RATE: regular rate RHYTHM: r egular rhythm HEART SOUNDS: S1 normal heart sound present and S2 normal heart sound present GI: COMMON NORMALS: Normal to inspection, nondistended, normoactive bowel sounds present and non-tender Extremity: COMMON NORMALS: no calf tenderness and no pedal edema Neuro: COMMON NORMALS: patient oriented x3 Psych: COMMON NORMALS: mental status grossly normal Data 01/19/25 02:58 01/19/25 02:58 A&P Assessment and plan 1. Chest pain: 2. GERD (gastroesophageal reflux disease): Resume Protonix and give GI cocktail for next episode of chest pain 3. Obesity (BMI 35.0-39.9 without comorbidity): Patient is not on GLP-1's and no epigastric tenderness to suggest pancreatitis Plan: Chest pain - Monitor for recurrent chest pain - Serial EKGs, serial troponins, telemetry monitoring - Cardiac echo CONCLUSIONS LV systolic function is normal with EF of 55-60% Mild mitral regurgitation No comparison studies are available. - Heparin drip - Aspirin, statin -Nitroglycerin topical - N.p.o. will await cardiology's recommendations after stress test IMPRESSIONS 1. Small area of ischemia seen in LAD territory. Attenuation artifact cannot be ruled out. Clinical correlation is required. 2. LV systolic function is normal. Full code Heparin drip for DVT prophylaxis PDMP PDMP Reviewed: Not Reviewed Attestations 2 Medical Necessity Statement*: Patient requires hospitalization for chest pain Diagnoses Chest pain R07.9 GERD (gastroesophageal reflux disease) K21.9 Obesity (BMI 35.0-39.9 without comorbidity) E66.9
--- NOTE | 2025-01-19 13:25 | P.PN_ITS ---
<Statement entered by Héctor Vinson MD - 01/19/25 17:22> Patient was evaluated and cared for in conjunction with an advanced practice practitioner. I personally saw the patient and reviewed the chart and all pertinent data. I discussed the patient in detail with the advanced practice practitioner. Please see their note for complete assessment and agreed upon plan of care for the patient. Subjective 2 Subjective: Early this morning patient decided she wanted to do a stress test rather than a coronary angiogram, which we accommodated. The Lexiscan stress test shows a small area of ischemia in the LAD territory. Since the stress test she has had significant nausea similar to the presentation which brought her to the hospital. Will plan for coronary gram tomorrow morning 6 AM. She can eat today. Vitals/I&O/Wt Last Vital Signs Temp 98.0 F 01/19/25 11:40 Pulse 72 01/19/25 11:40 Resp 19 H 01/19/25 11:40 BP 150/76 01/19/25 11:40 Pulse Ox 96 01/19/25 11:40 O2 Del Method Room Air 01/19/25 03:56 01/18/25 01/19/25 01/19/25 22:59 06:59 14:59 Intake Total 169.433 / 369.683 0 / 369.683 0 / 0 Output Total 302 / 1027 725 / 1027 Balance -132.567 / -657.317 -725 / -657.317 0 / 0 Weight last 48 hrs Weight 200 lb 9.6 oz Weight 205 lb 11.2 oz Weight 206 lb 8 oz Weight 205 lb Physical Exam 2 Const: COMMON NORMALS: no acute distress and patient oriented x3 GENERAL APPEARANCE: cooperative and comfortable ORIENTATION/CONSCIOUSNESS: Yes awake, Yes oriented to person, Yes oriented to place and Yes oriented to time Chest: COMMONS NORMALS: normal inspection of the chest and normal palpation of entire chest wall CHEST: Yes Symmetrical chest wall rise Resp: COMMON NORMALS: normal respiratory effort, No retractions, No use of accessory muscles and clear to auscultation bilaterally EFFORT & INSPECTION: Yes symmetric chest movement AUSCULTATION: clear to auscultation bilaterally Cardio: COMMON NORMALS: regular rate, regular rhythm, S1 normal heart sound present, S2 normal heart sound present, No gallops present (Cardio), No clicks present (Cardio), No murmurs present (Cardio) and No rub (Cardio) RATE: r egular rate RHYTHM: regular rhythm HEART SOUNDS: S1 normal heart sound present and S2 normal heart sound present PERIPHERAL PULSES: radial pulses present Extremity: COMMON NORMALS: no pedal edema Neuro: COMMON NORMALS: patient oriented x3 and moves all extremities S ENSORIUM/ORIENTATION: Yes oriented to person, Yes oriented to place and Yes oriented to time Data 01/19/25 02:58 01/19/25 02:58 A&P Assessment and plan 1. Unstable angina pectoris: 2. Obesity (BMI 35.0-39.9 without comorbidity): Plan: Unstable angina with abnormal stress test showing ischemia in the LAD territory. Will plan for coronary angiogram 6 AM tomorrow. N.p.o. after midnight tonight. Continue aspirin, statin. PDMP PDMP Reviewed: Not Reviewed Attestations 2 Medical Necessity Statement*: Ischemic workup Coding Level of Care Code Acute Code for [facility] Diagnoses Unstable angina pectoris I20.0 Obesity (BMI 35.0-39.9 without comorbidity) E66.9
--- NOTE | 2025-01-19 15:22 | PC.NURSE ---
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
[2025-01-19 20:00] VITALS: BP 119/69; PULSE 66; RESP 16; TEMP 37.1
[2025-01-20] VITALS (27 sets, daily range): BP systolic 97–140; BP diastolic 57–79; PULSE 55–81; RESP 12–18; TEMP 36.5–36.8; O2SAT 96–100
[2025-01-20 03:04] LABS: Hematocrit 34.7 % (36-47); Hemoglobin 11.60 g/dL (11.27-16.99); Mean Corpuscular HGB Conc 33.4 g/dL (30-55); Mean Corpuscular Hemoglobin 32.0 pg (27-33); Mean Corpuscular Volume 95.6 fl (85-98); Nucleated Red Blood Cells % 0 %; Platelet Count 268 10^3/cmm (157-399); Red Blood Count 3.63 10^6/uL (3.85-5.65); White Blood Count 7.10 10^3/uL (3.29-11.43)
[2025-01-20 03:27] LABS: Alanine Aminotransferase 8 U/L (0-33); Albumin Level 3.8 g/dL (3.5-5.2); Alkaline Phosphatase 50 U/L (35-105); Anion Gap 14.7 (5-19); Aspartate Amino Transferase 12 U/L (0-32); Blood Urea Nitrogen 11 mg/dL (6-20); Calcium 8.9 mg/dL (8.5-10.5); Carbon Dioxide 23 mmol/L (22-29); Chloride 106 mmol/L (98-107); Creatinine Clr Calc Pharmacy 108.5626; Globulin 2.6 g/dL (1.3-4.6); Glucose 104 mg/dL (65-115); Osmolality Calculated 290 mOsm/kg (285-295); Potassium 3.7 mmol/L (3.5-5.1); Sodium 140 mmol/L (136-145); Total Protein 6.4 g/dL (6.6-8.7)
--- NOTE | 2025-01-20 05:36 | XACV_ITS ---
Exam Room: [facility] Ht: 163 cm Wt: 91 kg BSA: 2.06 m2 Gender: Female : 1975 Any Known Allergies: Other Exam Priority: Routine Indication(s): - Abnormal stress perfusion study - Chest pain Procedure(s): Procedure Description: Diagnostic procedure Procedure Description: Left Heart Catheterization Procedure Description: Coronary Angiography Kei MENG; Diagnostic Cath Status: Elective Diagnostic Findings * No disease noted in the Left Main, Left Anterior Descending, Right, or Circumflex coronary arteries. * Coronary angiography shows right dominance. Conclusions 1. No disease noted in the Left Main, Left Anterior Descending, Right, or Circumflex coronary arteries. Recommendations * Continue current medical management and risk factor modification. * Possible etiology is coronary spasm, patient had a lot of right radial artery spasm. Add isosorbide mononitrate 30 mg p.o. daily for the patient.. Diagnostic RX Recommendation: none Pressures Phase:Rest AO : 139 / 85 ( 108 ) @ 7:46:00 AM Clinical Evaluation EBL: 5mL-10mL Procedural Details Procedure Consent Obtained. Admit Source: In Patient. Current Diagnosis : Chest Pain. Pre-Procedure Time Out. Identified patient by full name and date of as verbalized by the patient/guarantor. Does the consent match the physician's order: Yes. Accurate & Complete Informed Consent: Yes. Inpatient/Outpatient History & Physical on Chart: Yes. If H&P is completed, is and addenduem needed: No; If yes, is the addendum complete: N/A. Visualize and Verify Site with Patient/Guarantor: N/A. Relevant Radiology Images available: N/A. The risks, benefits, and alternatives of sedation and/or procedure were discussed by physician. The patient agrees to continue. Procedure started. [facility] Clinical Fraility Score: 3: Managing Well. Facilities Planner Indications: Other. Chest Pain Symptom Assessment: Typical Angina Symptoms. Cardiovascular Instability: No. Correct patient, site and procedure confirmed by cath team. Current diagnosis: Chest Pain; Abnormal Stress Test. PERRLA. Strong, equal hand big 6 dealer bilaterally. Lungs clear x 5 lobes. IV Site on Arrival: 20 gauge in the right anticubital. IV Site on Arrival: 20 gauge in the left anticubital. IV Fluids: 0.9% NaCl at KVO. 0 mL infused prior to seed analysis laboratory assistant. Pre Procedural Pulses: bilateral posterior tibial was 3+. Pre Procedural Pulses: bilateral dorsalis pedis was 3+. Pre Procedural Pulses: bilateral radial was 3+. Oxygen started at 3liters/min via nasal canula. right groin was prepped with chloroprep then draped in the usual sterile fashion. right radial was prepped with chloroprep then draped in the usual sterile fashion. Physician notified. Baseline sample Acquired. HR: 70 BPM. Physician arrived. Physician scrubbed in. Family updated by MD prior to the start of the procedure. Immediate Pre-Procedure Time Out. Correct Patient: Yes; Correct Procedure: Yes; Correct Site: Yes; Correct Patient Position: Yes; Correct Supplies: Yes; Dried Flammable Prep: Yes; Blood Products Available: N/A;. Nazario Kincaid RN, CASTING MACHINE CONTROL BOARD OPERATOR was relieved by Alejandra Clinton RRT as monitoring person. Lidocaine 1% infiltrated to the right radial. Arterial access obtained. A 5 armenian TIG catheter in over wire. Multiple views taken of left coronary artery. Catheter redirected to the RCA. Multiple views taken of right coronary artery. Catheter removed over the exchange wire. Physician scrubbed out. TR band placed. Hemostasis obtained. A TR Band was successful obtaining hemostatsis at the Right Radial artery insertion site. Post Procedure: Pulses reassessed and unchanged. PERRLA. Strong, equal hand big 6 dealer bilaterally. No VTE prophylaxis required. Medication's Wasted: Lidocaine 1% = 18 mL. Medication's Wasted: Nitro = 49.75 mg. Medication's Wasted: Heparin = 1000 units. Total IV fluids: 50 mL. Medication's Wasted: Other = versed 1 mg. Medication's Wasted: Other = fentanyl 25 mcg. Contrast type used: Omnipaque 300 mgI/mL, 500 mL bottle. Post-op diagnosis: normal coronaries. Complications: none. Estimated blood loss: 5mL-10mL. Responsiveness - Normal response to verbal stimuli; alert and oriented, PERRLA. Airway - Unaffected, no intervention required; spontaneous ventilation. Circulation: W/N/L, pulses unchanged. Nausea/Vomiting: No. Procedure completed. Patient transferred by bed to 1st floor. Access Site Site: Right Radial artery Sheath Size: 6 Fr Hemostasis Method: TR Band Hemostasis Success: Successful Procedure Medications Start: 6:25 AM Stop: 6:25 AM Medication: Versed Amount: 1 mg Route: I.V. Start: 6:25 AM Stop: 6:25 AM Medication: Fentanyl Amount: 50 mcg Route: I.V. Start: 6:32 AM Stop: 6:32 AM Medication: Versed Amount: 1 mg Route: I.V. Start: 6:37 AM Stop: 6:37 AM Medication: Nitrogylcerin Amount: 50 mcg Route: S.Q. Start: 6:41 AM Stop: 6:41 AM Medication: Versed Amount: 1 mg Route: I.V. Start: 6:41 AM Stop: 6:41 AM Medication: Fentanyl Amount: 25 mcg Route: I.V. Start: 6:44 AM Stop: 6:44 AM Medication: Nitrogylcerin Amount: 200 mcg Route: I.A. Start: 6:45 AM Stop: 6:45 AM Medication: Heparin Amount: 5000 units Route: I.V. I, the attending physician, have reviewed and verified all procedure medications. Yes, all medications given per verbal order History/Risk Factors Obesity: Yes Tobacco Use: Never Report Signatures Finalized by Angelito Choudhury MD on 01/20/2025 08:10 AM
[2025-01-20] MEDS: ondansetron 2 mg/ML SDV 2 mL 4 MG IVP (05:57)
--- NOTE | 2025-01-20 06:26 | W.PM.OPSUD ---
Surgery/Procedure H&P Update DATE OF PROCEDURE: January 20, 2025 DATE H&P PERFORMED: 01/18/25 H&P UPDATE INFORMATION: I have reviewed H&P completed within last 30 days, I have examined patient prior to procedure and No changes to prior documentation PREOP DIAGNOSIS: Chest pain/abnormal stress test PRIMARY INDICATION FOR PROCEDURE: Chest pain/abnormal stress test PLANNED PROCEDURE: Operation Date: 01/19/25 07:00 Proposed Procedures p Cardiac Catheterization(Left) - Angelito Choudhury MD PATIENT REASSESSED PRIOR TO SEDATION, WITH NO CHANGE NOTED: Yes PHYSICAL EXAM: alert, oriented x 3, clear to auscultation bilaterally, regular rate & rhythm and operative site marked OTHER PERTINENT EXAM FINDINGS: Patient has been explained all risk-benefit and alternative for the procedure. Patient understand 2% risk of stroke major bleed patient understand 5% risk of contrast-induced nephropathy urgent emergent vascular or CT surgery, pseudoaneurysm hematoma infection and bruising. She clearly understood and would like to proceed with that. AIRWAY EVAL/ANESTHESIA PLAN: ASA II, Risks, benefits & alternatives of sedation and/or procedure discussed and Patient agrees to continue as planned
--- NOTE | 2025-01-20 09:05 | P.PN_ITS ---
<Statement entered by Angelito Choudhury MD - 01/20/25 15:51> Patient was evaluated and cared for in conjunction with an advanced practice practitioner. I personally examined the patient and reviewed the chart and all pertinent data including imaging, telemetry, and laboratory results. I discussed the patient in detail with the advanced practice practitioner. Please see their note for complete H&P testing result and agreed upon plan of care for the patient. Subjective 2 Subjective: Coronary angiogram this morning did not show any significant stenosis however considerable vasospasm of the arteries. Will start her on isosorbide mononitrate 30 mg daily. Vitals/I&O/Wt Last Vital Signs Temp 97.7 F 01/20/25 07:52 Pulse 61 01/20/25 07:52 Resp 15 01/20/25 07:52 BP 104/74 01/20/25 07:52 Pulse Ox 96 01/20/25 07:52 O2 Del Method Room Air 01/20/25 07:52 01/19/25 01/20/25 01/20/25 22:59 06:59 14:59 Intake Total 1360 / 1360 Balance 1360 / 1360 Weight last 48 hrs Weight 200 lb 9.6 oz Weight 200 lb 9.6 oz Physical Exam 2 Const: COMMON NORMALS: no acute distress and patient oriented x3 GENERAL APPEARANCE: cooperative ORIENTATION/CONSCIOUSNESS: Yes awake, Yes oriented to person, Yes oriented to place and Yes oriented to time Chest: COMMONS NORMALS: normal inspection of the chest and normal palpation of entire chest wall CHEST: Yes Symmetrical chest wall rise Resp: COMMON NORMALS: normal respiratory effort, No retractions, No use of accessory muscles and clear to auscultation bilaterally AUSCULTATION: clear to auscultation bilaterally Cardio: COMMON NORMALS: regular rate, regular rhythm, S1 normal heart sound present, S2 normal heart sound present, No gallops present (Cardio), No clicks present (Cardio), No murmurs present (Cardio) and No rub (Cardio) RATE: r egular rate RHYTHM: regular rhythm HEART SOUNDS: S1 normal heart sound present and S2 normal heart sound present PERIPHERAL PULSES: radial pulses present positive right 2+ and femoral pulses present positive right 2+ Neuro: COMMON NORMALS: patient oriented x3 and moves all extremities S ENSORIUM/ORIENTATION: Yes oriented to person, Yes oriented to place and Yes oriented to time Skin: WOUNDS: Yes surgical site (no hematoma palpable) Details: no odor Data 01/20/25 02:46 01/20/25 02:46 A&P Assessment and plan 1. Chest pain: 2. Obesity (BMI 35.0-39.9 without comorbidity): Plan: Recommend starting isosorbide for coronary vasospasm, possible etiology of her chest pain. She can discharge home today after TR band is released and hemostasis achieved, if okay with hospitalist service. She should follow-up with Dr. Choudhury in the office. PDMP PDMP Reviewed: Not Reviewed Attestations 2 Medical Necessity Statement*: Probable discharge home Coding Level of Care Code Acute Code for [facility] Diagnoses Chest pain R07.9 Obesity (BMI 35.0-39.9 without comorbidity) E66.9
--- NOTE | 2025-01-20 10:30 | PM.DCS ---
Discharge Providers Date of Admission: 01/17/25 20:38 Date of Discharge: January 20, 2025 Attending Provider at Admission: Phil Cruz MD Attending Provider at Discharge: Davy Lara MD Primary Care Provider: Felisa Benites MD Diagnoses at Discharge Discharge Diagnosis 1. Chest pain: 2. Obesity (BMI 35.0-39.9 without comorbidity): Reason for Visit Reason for Visit: chest pain Hospital Course Hospital Course This is a 49-year-old female with a past medical history of obesity, who presents [facility] for chest pain Patient was admitted to [facility] for chest pain - Cardiology consulted Cardiac echo -CONCLUSIONS LV systolic function is normal with EF of 55-60% Mild mitral regurgitation No comparison studies are available. -She underwent stress testing Stress testing -IMPRESSIONS 1. Small area of ischemia seen in LAD territory. Attenuation artifact cannot be ruled out. Clinical correlation is required. 2. LV systolic function is normal. -Underwent coronary angiography CAD Conclusions 1. No disease noted in the Left Main, Left Anterior Descending, Right, or Circumflex coronary arteries. Recommendations * Continue current medical management and risk factor modification. * Possible etiology is coronary spasm, patient had a lot of right radial artery spasm. Add isosorbide mononitrate 30 mg p.o. daily for the patient. -Patient was seen by me, no recurrent chest pain, alert oriented x 3, following all commands - No recurrent chest pain - Patient will be discharged with Imdur, follow-up with cardiology as outpatient Physical Exam Const: COMMON NORMALS: no acute distress and patient oriented x3 Resp: COMMON NORMALS: normal respiratory effort, No retractions, No use of accessory muscles and clear to auscultation bilaterally AUSCULTATION: clear to auscultation bilaterally Cardio: COMMON NORMALS: regular rate, regular rhythm, S1 normal heart sound present and S2 normal heart sound present RATE: regular rate RHYTHM: regular rhythm HEART SOUNDS: S1 normal heart sound present and S2 normal heart sound present GI: COMMON NORMALS: Normal to inspection, nondistended, normoactive bowel sounds present and non-tender Extremity: COMMON NORMALS: no pedal edema Neuro: COMMON NORMALS: patient oriented x3 Psych: COMMON NORMALS: mental status grossly normal Discharge Data Studies Completed and Pending Completed Studies During Hospitalization Category Date Time Status [employer]ULTANT request for service Routine Exams 01/20/25 05:36 Completed Cardiac Stress Test MIBI [Sestamibi Stress Test Request Exams 01/19/25 07:26 Draft ] Routine XR chest 1V portable [id number] Stat Exams 01/17/25 15:49 Completed NM garima perf SPECT r/s* [id number] Routine Nuc Med 01/19/25 07:27 Completed US echo complete [CV. echo complete* [id number]] Routine Ultrasound 01/18/25 07:50 Completed Pending at discharge Category Date Time Status Cardiac Stress Test Request Routine Exams 01/18/25 06:00 Stop Req Sestamibi Stress Test Request Routine Exams 01/18/25 07:48 Stop Req Complete Blood Count w/Auto AM LABS Lab 01/21/25 04:00 Ordered Comprehensive Metabolic Panel AM LABS Lab 01/21/25 04:00 Ordered Platelet Count Q2D Lab 01/21/25 04:00 Ordered Radiology Impressions Chest X-Ray 01/17/25 15:49 IMPRESSION: No acute findings. Laboratory Results WBC 7.10 10^3/uL (3.29-11.43) 01/20/25 02:46 RBC 3.63 10^6/uL (3.85-5.65) L 01/20/25 02:46 Hgb 11.60 g/dL (11.27-16.99) 01/20/25 02:46 Hct 34.7 % (36-47) L 01/20/25 02:46 MCV 95.6 fl (85-98) 01/20/25 02:46 MCH 32.0 pg (27-33) 01/20/25 02:46 MCHC 33.4 g/dL (30-55) 01/20/25 02:46 RDW 12.3 % (12.1-15.1) 01/20/25 02:46 Plt Count 268 10^3/cmm (157-399) 01/20/25 02:46 MPV 9.6 fL (7.4-10.4) 01/20/25 02:46 Neut % (Auto) 44.6 % 01/20/25 02:46 Lymph % (Auto) 39.9 % 01/20/25 02:46 Ida % (Auto) 8.9 % 01/20/25 02:46 Eos % (Auto) 5.4 % 01/20/25 02:46 Baso % (Auto) 1.1 % 01/20/25 02:46 Neut # (Auto) 3.17 10^3/uL (1.8-7.7) 01/20/25 02:46 Lymph # (Auto) 2.8 10^3/uL (0.8-4.8) 01/20/25 02:46 Ida # (Auto) 0.6 10^3/uL (0.2-0.9) 01/20/25 02:46 Eos # (Auto) 0.4 10^3/uL (0.0-0.8) 01/20/25 02:46 Baso # (Auto) 0.1 10^3/uL (0.0-0.1) 01/20/25 02:46 Nucleated RBC % (auto) 0 % 01/20/25 02:46 Nucleated RBCs # 0.0 /100WBC 01/20/25 02:46 PT 12.50 SECONDS (12.1-14.9) 01/17/25 16:46 INR 0.88 (0.8-1.2) 01/17/25 16:46 APTT 66.3 SECONDS (23.9-36.7) H 01/18/25 17:22 Sodium 140 mmol/L (136-145) 01/20/25 02:46 Potassium 3.7 mmol/L (3.5-5.1) 01/20/25 02:46 Chloride 106 mmol/L (98-107) 01/20/25 02:46 Carbon Dioxide 23 mmol/L (22-29) 01/20/25 02:46 Anion Gap 14.7 (5-19) 01/20/25 02:46 BUN 11 mg/dL (6-20) 01/20/25 02:46 Creatinine 0.7 mg/dL (0.5-0.9) 01/20/25 02:46 GFR Calculation 89.7 mL/min (90-130) L 01/20/25 02:46 Glucose 104 mg/dL (65-115) 01/20/25 02:46 Calculated Osmolality 290 mOsm/kg (285-295) 01/20/25 02:46 Calcium 8.9 mg/dL (8.5-10.5) 01/20/25 02:46 Total Bilirubin 0.5 mg/dL (0.15-1.2) 01/20/25 02:46 AST 12 U/L (0-32) 01/20/25 02:46 ALT 8 U/L (0-33) 01/20/25 02:46 Alkaline Phosphatase 50 U/L (35-105) 01/20/25 02:46 Troponin T Baseline < 6 ng/L (0-10) 01/17/25 16:46 Troponin T 120 Minute < 6.0 ng/L (0-10) 01/17/25 18:32 Delta Troponin T 0 ABS# (0-10) 01/17/25 18:32 Troponin T Hi Sens 6Hr < 6.0 ng/L (0-10) 01/17/25 22:59 Troponin T Hi Sens 6Hr Delta 0 ng/L (0-12) 01/17/25 22:59 Total Protein 6.4 g/dL (6.6-8.7) L 01/20/25 02:46 Albumin 3.8 g/dL (3.5-5.2) 01/20/25 02:46 Globulin 2.6 g/dL (1.3-4.6) 01/20/25 02:46 Lipase 19 U/L (13-60) 01/17/25 16:46 HCG, Qual Negative (Negative) 01/19/25 02:58 Influenza A (PCR) Negative (Negative) 01/18/25 21:32 Influenza Type B (PCR) Negative (Negative) 01/18/25 21:32 RSV (PCR) Negative (Negative) 01/18/25 21:32 SARS-CoV-2 (PCR) Negative (Negative) 01/18/25 21:32 Vitals Last Vital Signs Temp 97.7 F 01/20/25 07:52 Pulse 61 01/20/25 07:52 Resp 15 01/20/25 07:52 BP 104/74 01/20/25 07:52 Pulse Ox 96 01/20/25 07:52 O2 Del Method Room Air 01/20/25 07:52 Discharge Plan Discharge Patient Disposition: Home Condition: Stable Prescriptions: New isosorbide mononitrate 30 mg Tablet Extended Release 24 Hr 30 mg PO DAILY 30 Days Qty: 30 0RF Continued alprazolam [Xanax] 0.25 mg Tablet 0.25 mg PO TID PRN (Reason: Anxiety) PNV no.95-ferrous fumarate-FA [] 28 mg iron- 800 mcg Tablet 1 tab PO DAILY estradiol 0.075 mg/24 hr patch weekly 1 patch topical DIRECTED Rx Instructions: every three days ondansetron 4 mg tablet,disintegrating 4 mg PO Q6H PRN (Reason: nausea and vomiting) Qty: 14 0RF Discontinued Hair,Skin and Nails Tablet 1 tab PO DAILY Bioinformatics Team Member OK for DC: Cardiology Discharge Order = DC NOW: Discharge Order (Routine); Ordered 01/20/25 Ordered By: Angelito Choudhury Referrals: Bre Friedman NP [Nurse Practitioner, Cardiology] - 01/25/25 2:45 pm Felisa Benites MD [Primary Care Provider, Family Practice] - 01/25/25 11:30 am Discharge Diet: Cardiac Discharge Activity: Resume usual activity Patient Instructions: Isosorbide Mononitrate (By mouth), Chest Pain Stoplight, Opioid Safety, Post Angiogram Home Care Instructions, Patient Portal & Bren Instructions Activity Restrictions/Additional Instructions: - If any recurrent chest pain go to the emergency room Stand Alone Forms: Work/School Release Discharge Attestations Time Spent in Discharge Care*: greater than 30 min Quality Metrics Clinical Quality Measures [ No reported AMI, CVA or VTE this stay] Coding Level of Care Code 72841 Total time (in minutes) for Discharge: 45 Diagnoses Chest pain R07.9 Obesity (BMI 35.0-39.9 without comorbidity) E66.9
--- NOTE | 2025-01-20 13:22 | PC.NURSE ---
pt received from cardiac cath via w/c in to room 107 at 0700.report received.pt is a little drowsy from sedation,but awake and oriented x 4.sr on monitor.denies pain at present.right radial tr band on and inflated.right hand is cool to touch and with brisk capillary refill.palpable radial pulse noted distal to tr band.no hematoma noted.pt instructed in activity restrictions s/p radial artery procedure...and instructed to notify staff for any bleeding,pain,numbness,or for any concerns at all.pt verb understanding of instructions
--- NOTE | 2025-01-20 13:28 | PC.NURSE ---
tr band slowly deflated and eventually removed at 1215.right hand remains cool to touch (as does left hand)...palpable radial pulse noted.no hematoma observed.brisk capillary refill noted.site dressed with 2x2 gauze and secured with biocclusive drsg.pt instructed in activity restrictions s/p tr band removal...and instructed to notify staff for any bleeding,pain,numbness..or for any concerns at all.pt verb understanding of instructions
--- NOTE | 2025-01-20 13:30 | PC.NURSE ---
discharge instructions given and explained.pt verb understanding of instructions.discharged at this time to exit via w/c.spouse to drive pt home.
== END 2025-01-20 13:15 | disposition home or self-care (01) ==
LOC: ER 19:30 → CSU 21:07
PROVIDERS: Emergency Medicine; Internal Medicine Cardiovascular Disease; Physician Assistant; Admitting Provider Internal Medicine; Emergency Provider Physician Assistant; PCP Family Medicine; Visit Provider Family Medicine
DX: R07.9 Chest pain, unspecified (principal); E66.9 Obesity, unspecified; Z68.34 Body mass index [BMI] 34.0-34.9, adult; K21.9 Gastro-esophageal reflux disease without esophagitis; Z90.49 Acquired absence of other specified parts of digestive tract
CPT/HCPCS: 36415; 71045; 78452; 80053; 83690; 84484; 84703; 85025; 85049; 85610; 85730; 87637; 93005; 93017; 93306; 93454; 96375; 99152; 99153; A9500; C1769; C1887; C1894; G0378; J0280; J0780; J1644; J2250; J2405; J2785; J3010; J3490; J7030; J9999; Q0163; Q9967

== ENCOUNTER 2025-01-26 09:31 | Outpatient (CLI) | payer BC, SELFPAY ==
[2025-01-26 10:23] LABS: Hematocrit 37.6 % (36-47); Hemoglobin 12.40 g/dL (11.27-16.99); Mean Corpuscular HGB Conc 33.0 g/dL (30-55); Mean Corpuscular Hemoglobin 31.6 pg (27-33); Mean Corpuscular Volume 95.7 fl (85-98); Nucleated Red Blood Cells % 0 %; Platelet Count 287 10^3/cmm (157-399); Red Blood Count 3.93 10^6/uL (3.85-5.65); White Blood Count 5.44 10^3/uL (3.29-11.43)
[2025-01-26 10:53] LABS: Estmated Average Glucose 100; Hemoglobin A1C 5.1 % (4.0-6.0)
[2025-01-26 10:59] LABS: Alanine Aminotransferase 9 U/L (0-33); Albumin Level 4.5 g/dL (3.5-5.2); Alkaline Phosphatase 56 U/L (35-105); Anion Gap 14.2 (5-19); Aspartate Amino Transferase 11 U/L (0-32); Blood Urea Nitrogen 17 mg/dL (6-20); Calcium 9.4 mg/dL (8.5-10.5); Carbon Dioxide 23 mmol/L (22-29); Chloride 105 mmol/L (98-107); Globulin 3.0 g/dL (1.3-4.6); Glucose 108 mg/dL (65-115); Osmolality Calculated 288 mOsm/kg (285-295); Potassium 4.2 mmol/L (3.5-5.1); Sodium 138 mmol/L (136-145); Total Protein 7.5 g/dL (6.6-8.7)
[2025-01-27 09:36] LABS: Cholesterol 202 mg/dL (0-200); HDL Cholesterol 76 mg/dL (60-100); Triglycerides 60 mg/dL (0-150)
== END 2025-01-26 09:32 | disposition home or self-care (01) ==
PROVIDERS: PCP Nurse Practitioner Family; Visit Provider Nurse Practitioner Family
DX: R07.9 Chest pain, unspecified (principal); I20.0 Unstable angina
CPT/HCPCS: 80053; 80061; 83036; 85025